=== PATIENT | female | born 2000 | race Hispanic/Latino ===

== ENCOUNTER 2020-03-27 19:05 | Emergency (ER) | payer OTHER, SELFPAY ==
[2020-03-27] MEDS ORDERED: LIDOCAINE 1% MPF 5 ML VIAL ONE (20:31)
--- NOTE | 2020-03-27 20:37 | EDPHYS ---
Physician Documentation [facility] Name: Linda Castillo Age: 19 yrs Sex: Female : 2000 Arrival Date: 03/27/2020 Time: 19:09 Bed 14 Private MD: ED Physician Jorge L Mckay HPI: 03/27 20:14 This 19 yrs old Female presents to ER via Ambulatory with complaints of jr8 Laceration To Hand. 20:14 The patient has a laceration related to: cooking, occurred at home. Onset: The jr8 symptoms/episode began/occurred acutely, today. Associated signs and symptoms: The patient has no apparent associated signs or symptoms. The patient has not experienced similar symptoms in the past. The patient has not recently seen a physician. 20:14 accidental laceration to right hand with knife while cleaning from cooking . 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 - Social history:: Smoking status: Patient denies any tobacco usage or history of. Patient/guardian denies using alcohol, street drugs, tobacco products. ROS: 20:14 Eyes: Negative for injury, pain, redness, and discharge, ENT: Negative for injury, jr8 pain, and discharge, Neck: Negative for injury, pain, and swelling, Cardiovascular: Negative for chest pain, palpitations, and edema, Respiratory: Negative for shortness of breath, cough, wheezing, and pleuritic chest pain, Abdomen/GI: Negative for abdominal pain, nausea, vomiting, diarrhea, and constipation, Back: Negative for injury and pain, MS/Extremity: Negative for injury and deformity, Neuro: Negative for headache, weakness, numbness, tingling, and seizure. 20:14 Skin: Positive for laceration(s), of the right hand. Exam: 20:14 Constitutional: This is a well developed, well nourished patient who is awake, alert, jr8 and in no acute distress. Cardiovascular: Regular rate and rhythm with a normal S1 and S2. No gallops, murmurs, or rubs. Normal PMI, no JVD. No pulse deficits. Respiratory: Lungs have equal breath sounds bilaterally, clear to auscultation and percussion. No rales, rhonchi or wheezes noted. No increased work of breathing, no retractions or nasal flaring. MS/ Extremity: Pulses equal, no cyanosis. Neurovascular intact. Full, normal range of motion. Neuro: Awake and alert, GCS 15, oriented to person, place, time, and situation. Cranial nerves II-XII grossly intact. Motor strength 5/5 in all extremities. Sensory grossly intact. Cerebellar exam normal. Normal gait. 20:14 Skin: injury, laceration(s), the wound is approximately 3 cm(s), with a depth of .3 cm(s), of the right hand. Vital Signs: 19:16 BP 126 / 83; Pulse 85; Resp 17; Temp 98.6; Pulse Ox 98% ; Pain 4/10; ll1 21:04 BP 120 / 79; Pulse 75; Resp 16; Temp 98.5(O); Pulse Ox 100% ; Pain 3/10; ks7 Laceration: 20:34 Wound Repair of 3cm ( 1.2in ) subcutaneous laceration to right hand. Irregularly jr8 shaped.. Minimal bleeding noted.. Distal neuro/vascular/tendon intact. Anesthesia: Local anesthetic administered with 2 mls of 1% lidocaine. Wound prep: Moderate cleansing with betadine, Wound irrigation with saline, Wound explored extensively. Skin closed with 5 4-0 Prolene using interrupted sutures and sterile technique. Patient tolerated well. MDM: 19:39 Patient medically screened. jr8 20:34 Data reviewed: vital signs, nurses notes, and as a result, I will discharge patient. jr8 Data interpreted: Pulse oximetry: on room air is 98 %. Interpretation: normal. Counseling: I had a detailed discussion with the patient and/or guardian regarding: the historical points, exam findings, and any diagnostic results supporting the discharge/admit diagnosis, the need for outpatient follow up, a family practitioner, to return to the emergency department if symptoms worsen or persist or if there are any questions or concerns that arise at home. 03/27 19:49 Order name: Prolene, Sutures; Complete Time: 20:22 jr8 03/27 19:49 Order name: Dressing - Wound; Complete Time: 20:58 jr8 03/27 19:49 Order name: Gloves, Sterile; Complete Time: 20:22 jr8 03/27 19:49 Order name: Setup Suture Tray; Complete Time: :8 Administered Medications: 20:57 Drug: Lidocaine (1 %) 5 mg {Note: medication administered by Jacob SALMERON.} Route: sg Infiltration; Disposition: 03/28 00:38 Co-signature as Attending Physician, Jorge L Mckay MD. [email or web address] Disposition: 03/27/20 20:36 Discharged to Home. Impression: Laceration without foreign body of right hand. - Condition is Stable. - Discharge Instructions: Laceration Care, Adult. - Medication Reconciliation Form, Thank You Letter, Antibiotic Education, Prescription Opioid Use form. - Follow up: Private Physician; When: 7 - 10 days; Reason: Wound Recheck, Recheck today's complaints, Continuance of care, Staple/Suture removal, Re-evaluation by your physician. - Problem is new. - Symptoms have improved. Signatures: Bigg Blackwell RN RN sg Lam, MD DANIEL Coats pkJacob Paez PA PA jr8 Mikel Saldana RN RN ll1 Eleni Burton RN RN ks7 Corrections: (The following items were deleted from the chart) 03/27 21:06 20:36 03/27/2020 20:36 Discharged to Home. Impression: Laceration without foreign body ks7 of right hand. Condition is Stable. Forms are Medication Reconciliation Form, Thank You Letter, Antibiotic Education, Prescription Opioid Use. Follow up: Private Physician; When: 7 - 10 days; Reason: Wound Recheck, Recheck today's complaints, Continuance of care, Staple/Suture removal, Re-evaluation by your physician. Problem is new. Symptoms have improved. jr8
--- NOTE | 2020-03-27 20:37 | ER ---
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 Coronavirus screen: Patient denies a cough. Patient denies shortness of breath or difficulty breathing. Patient denies measured and/or subjective temperature greater than 100.4F prior to today's visit. Patient denies travel on a cruise ship or to a country the [facility] currently lists as an affected area. Patient denies contact with known and/or suspected case of COVID-19. Proceed with normal triage. Ebola Screen: Patient denies travel to an Ebola-affected area in the 21 days before illness onset. Complicating Factors: There are no complicating factors for this patient. Initial Sepsis Screen: Does the patient meet any 2 criteria? No. Patient's initial sepsis screen is negative. Risk Assessment: Do you want to hurt yourself or someone else? Patient reports no desire to harm self or others. Onset of symptoms was March 27, 2020. 19:16 Method Of Arrival: Ambulatory [facility] 19:16 Acuity: IMANI 4 ll1 21:06 Initial Sepsis Screen: Does the patient have a suspected source of infection? No. ks7 Patient's initial sepsis screen is negative. Triage Assessment: 19:37 General: Appears in no apparent distress. well groomed, Behavior is calm, cooperative. ks7 Pain: Complains of pain in right hand Pain currently is 4 out of 10 on a pain scale. Quality of pain is described as throbbing. Injury Description: Laceration sustained to right hand is clean, 2.6 to 7.5 cm long, not bleeding. 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 - Social history:: Smoking status: Patient denies any tobacco usage or history of. Patient/guardian denies using alcohol, street drugs, tobacco products. Screenin:39 Abuse screen: Denies threats or abuse. Nutritional screening: No deficits noted. ks7 Tuberculosis screening: No symptoms or risk factors identified. Fall Risk None identified. Assessment: 19:39 Musculoskeletal: Circulation, motion, and sensation intact. Range of motion: painful to ks7 move fingers. Injury Description: Laceration sustained to right hand is clean, 2.6 to 7.5 cm long, not bleeding, was sustained 1-2 hours ago. is bleeding a small amount. 21:04 Reassessment: bleeding controlled after sutures. pain with movement to R hand. ks7 Vital Signs: 19:16 BP 126 / 83; Pulse 85; Resp 17; Temp 98.6; Pulse Ox 98% ; Pain 4/10; ll1 21:04 BP 120 / 79; Pulse 75; Resp 16; Temp 98.5(O); Pulse Ox 100% ; Pain 3/10; ks7 ED Course: 19:09 Patient arrived in ED. mr 19:18 Triage completed. ll1 19:18 Arm band placed on Patient placed. ll1 19:28 Eleni Burton RN is Primary Nurse. ks7 19:[address] [facility]. jr8 19:32 Jorge L Mckay MD is Attending Physician. jr8 19:39 Patient has correct armband on for positive identification. Bed in low position. Call ks7 light in reach. Side rails up X2. 19:39 No provider procedures requiring assistance completed. Patient did not have IV access ks7 during this emergency room visit. 21:04 No apparent distress. Resting quietly. ks7 Administered Medications: 20:57 Drug: Lidocaine (1 %) 5 mg {Note: medication administered by Jacob SALMERON.} Route: sg Infiltration; Outcome: 20:36 Discharge ordered by . jr8 21:04 Discharged to home ambulatory. ks7 21:04 Condition: stable 21:04 Discharge instructions given to patient, Instructed on discharge instructions, follow up and referral plans. Demonstrated understanding of instructions, follow-up care. 21:06 Patient left the ED. ks7 Signatures: Bigg Blackwell RN RN sg JinBarbara mr Jacob St PA PA jrShawn Tabaresy, RN RN ll1 Eleni Burton, RN RN ks7
[2020-03-27 21:34] VITALS: BP 120/79; TEMP 98.5; O2SAT 100
== END 2020-03-27 21:06 | disposition home or self-care (01) ==
LOC: ER 19:05
PROC: 0JQJ0ZZ Repair Right Hand Subcutaneous Tissue and Fascia, Open Approach (ICD-10-PCS; principal; 2020-03-27)
DX: S61.411A Laceration without foreign body of right hand, initial encounter (principal); W26.0XXA Contact with knife, initial encounter; Y93.G3 Activity, cooking and baking; Y92.000 Kitchen of unspecified non-institutional (private) residence as the place of occurrence of the external cause
CPT/HCPCS: 99283

== ENCOUNTER 2021-06-15 15:08 | Emergency (ER) | payer SELFPAY ==
[2021-06-15 16:26] LABS: Absolute Lymphocytes (CBC) 2.2 K/uL (0.7-4.9); Basophils % 0.7 % (0-1.3); Hematocrit 41.6 % (36.0-45.0); Lymphocytes % 22.9 % (15.3-44.8); MPV 8.1 fL (7.6-11.3); RBC Red Blood Cell Count 5.02 M/uL (3.86-4.86)
[2021-06-15 16:28] LABS: Urine Blood 3+ (Negative); Urine Glucose Negative (Negative); Urine Protein Negative (Negative); Urine Specific Gravity >=1.030 (1.005-1.030)
[2021-06-15 16:55] LABS: BUN Blood Urea Nitrogen 9 mg/dL (7-18); Bicarbonate 26 mmol/L (21-32); Glucose Level 93 mg/dL (74-106); HCG, Quantitative 17802 mIU/mL (1-3); Potassium 3.6 mmol/L (3.5-5.1); Sodium Level 139 mmol/L (136-145)
[2021-06-15 17:04] LABS: Urine Specific Gravity/Preg >1.030 (1.005-1.030)
--- NOTE | 2021-06-15 18:02 | EDPHYS ---
Physician Documentation [facility] Name: Linda Castillo Age: 21 yrs Sex: Female : 2000 Arrival Date: 06/15/2021 Time: 15:10 Bed 10 Private MD: ED Physician Rubens Davies HPI: 06/15 16:09 This 21 yrs old Female presents to ER via Ambulatory with complaints of kb Vaginal Bleeding, + Preg <12wks. 16:09 The patient presents to the emergency department with vaginal bleeding, that is light, kb described as spotting. The estimated gestational age is 6 weeks. course: care: none, Leakage of Fluid: none appreciated, Ultrasound: the patient has not had an ultrasound, Risk/complications: no obvious risks or complications are appreciated. Previous pregnancies: the patient has never been . Associated signs and symptoms: Pertinent positives: vaginal bleeding, Pertinent negatives: abdominal pain, fever. The patient has not experienced similar symptoms in the past. The patient has not recently seen a physician. 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 - Social history:: Smoking status: Patient denies any tobacco usage or history of. ROS: 16:07 Constitutional: Negative for fever, chills, and weight loss. kb 16:07 : Positive for vaginal bleeding. 16:07 All other systems are negative. Exam: 16:08 Constitutional: This is a well developed, well nourished patient who is awake, alert, kb and in no acute distress. Head/Face: Normocephalic, atraumatic. ENT: Moist Mucous membranes Respiratory: Respirations even and unlabored. No increased work of breathing, no retractions or nasal flaring. Abdomen/GI: Soft, non-tender. No distention Skin: Warm, dry with normal turgor. Normal color. MS/ Extremity: Pulses equal, no cyanosis. Neurovascular intact. Full, normal range of motion. Neuro: Awake and alert, GCS 15, oriented to person, place, time, and situation. Moves all extremities. Normal gait. Psych: Awake, alert, with orientation to person, place and time. Behavior, mood, and affect are within normal limits. Vital Signs: 15:17 BP 129 / 75; Pulse 80; Resp 16; Temp 97.3; Pulse Ox 100% ; Weight 92.53 kg; Height 5 sv ft. 3 in. (160.02 cm); Pain 0/10; 18:06 BP 116 / 74; Pulse 81; Resp 17; Pulse Ox 100% on R/A; oh 15:17 Body Mass Index 36.14 (92.53 kg, 160.02 cm) sv MDM: 15:33 Patient medically screened. kb 16:04 Data reviewed: vital signs, nurses notes. Data interpreted: Pulse oximetry: on room air kb is 100 %. Interpretation: normal. 18:00 Counseling: I had a detailed discussion with the patient and/or guardian regarding: the kb historical points, exam findings, and any diagnostic results supporting the discharge/admit diagnosis, lab results, radiology results, the need for outpatient follow up, an OB/Gyne specialist, to return to the emergency department if symptoms worsen or persist or if there are any questions or concerns that arise at home. 06/15 15:33 Order name: Abo/rh Typing; Complete Time: 17:17 kb 06/15 15:33 Order name: Basic Metabolic Panel; Complete Time: 16:58 kb 06/15 15:33 Order name: CBC with Diff; Complete Time: 16:34 kb 06/15 15:33 Order name: Quantitative Hcg; Complete Time: 16:58 kb 06/15 16:28 Order name: Urine --Ancillary (enter results) bd 06/15 16:28 Order name: Urine Dipstick-Ancillary; Complete Time: 16:34 EDMS 06/15 15:33 Order name: IV Saline Lock; Complete Time: 16:13 kb 06/15 15:33 Order name: Labs collected and sent; Complete Time: 16:14 kb 06/15 15:33 Order name: NPO; Complete Time: 16:14 kb 06/15 15:33 Order name: Urine Dipstick-Ancillary (obtain specimen); Complete Time: 16:39 kb 06/15 15:33 Order name: Urine Test (obtain specimen); Complete Time: 16:39 kb 06/15 16:35 Order name: US Transvaginal Ob kb Administered Medications: No medications were administered Point of Care Testing: Urine : 16:39 hCG Reading: Positive; oh Disposition Summary: 06/15/21 18:01 Discharge Ordered Location: Home kb Condition: Stable kb Diagnosis - Threatened kb Followup: kb - With: Emergency Department - When: As needed - Reason: Worsening of condition Followup: kb - With: Private Physician - When: 2 - 3 days - Reason: Recheck today's complaints, Continuance of care, Re-evaluation by your physician Discharge Instructions: - Discharge Summary Sheet kb - Threatened Miscarriage, [id number] kb - Vaginal Bleeding During , First Trimester, [id number] kb Forms: - Medication Reconciliation Form kb - Thank You Letter kb - Antibiotic Education kb - Prescription Opioid Use kb Addendum: 06/18/2021 08:37 Co-signature as Attending Physician, Rubens Davies MD I agree with the assessment and r n plan of care. Attestation: The patient's history, exam findings, diagnostics, and a summary of any interventions or procedures was reviewed in detail with Nena ORR. Signatures: Dispatcher [employer] Nena Pizarro FNP-C FNP-Ckb Verde, Stephanie, RN RN Rubens White MD MD rn
--- NOTE | 2021-06-15 18:02 | ER ---
Nurse's Notes [facility] Name: Linda Castillo Age: 21 yrs Sex: Female : 2000 Arrival Date: 06/15/2021 Time: 15:10 Bed 10 Private MD: Diagnosis: Threatened Presentation: 06/15 15:16 Chief complaint: Patient states: vaginal spotting x 2 weeks but today started having sv more bleeding. Pt is 6 weeks 6 days . Risk Assessment: Do you want to hurt yourself or someone else? Patient reports no desire to harm self or others. Onset of symptoms was May 2021. 15:16 Method Of Arrival: Ambulatory sv 15:16 Acuity: IMANI 3 sv 15:17 Coronavirus screen: Vaccine status: Patient reports being unvaccinated. Client denies sv travel out of the [place] in the last 14 days. Ebola Screen: No symptoms or risks identified at this time. Initial Sepsis Screen: Does the patient meet any 2 criteria? No. Patient's initial sepsis screen is negative. Does the patient have a suspected source of infection? No. Patient's initial sepsis screen is negative. Triage Assessment: 15:18 General: Appears in no apparent distress. comfortable, Behavior is calm, cooperative, sv appropriate for age. Neuro: Level of Consciousness is awake, alert, obeys commands, Oriented to person, place, time, situation, Gait is steady. Respiratory: Respiratory effort is even, unlabored. : Reports vaginal bleeding that is spotty. 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 - Social history:: Smoking status: Patient denies any tobacco usage or history of. Screenin:19 Abuse screen: Denies threats or abuse. Nutritional screening: No deficits noted. oh Tuberculosis screening: No symptoms or risk factors identified. Fall Risk None identified. Assessment: 16:17 : Reports vaginal bleeding that is moderate flow, states she has been having mild oh bleeding for 2 weeks. however today she had a moderate amount of bleeding than usual. pt is 6 weeks . 17:47 Reassessment: pt off the floor to ultrasound. oh Vital Signs: 15:17 BP 129 / 75; Pulse 80; Resp 16; Temp 97.3; Pulse Ox 100% ; Weight 92.53 kg; Height 5 sv ft. 3 in. (160.02 cm); Pain 0/10; 18:06 BP 116 / 74; Pulse 81; Resp 17; Pulse Ox 100% on R/A; oh 15:17 Body Mass Index 36.14 (92.53 kg, 160.02 cm) sv ED Course: 15:10 Patient arrived in ED. as 15:16 Arm band placed on. sv 15:17 Triage completed. sv 15:33 Nena Pollack FNP-C is PHCP. kb 15:33 Rubens Davies MD is Attending Physician. kb 15:57 Pallavi Colmenares, RN is Primary Nurse. oh 16:19 Inserted saline lock: 20 gauge in right antecubital area, using aseptic technique. oh Blood collected. 16:39 Bed in low position. Call light in reach. oh 16:52 Urine --Ancillary (enter results) Sent. oh 17:56 US Transvaginal Ob In Process Unspecified. EDMS 18:09 IV discontinued, bleeding controlled, Pressure dressing applied. oh 18:10 No provider procedures requiring assistance completed. oh Administered Medications: No medications were administered Point of Care Testing: Urine : 16:39 hCG Reading: Positive; oh Outcome: 18:01 Discharge ordered by MD. kb 18:09 Discharged to home ambulatory. oh 18:09 Condition: stable 18:09 Discharge instructions given to patient. 18:10 Patient left the ED. oh Signatures: Dispatcher [employer] EDIL Nena Pollack FNP-C FNP-Ckb Verde, Stephanie RN RN Lexy Burnette as Pallavi Colmenares, RN RN oh Corrections: (The following items were deleted from the chart) 15:19 15:17 Pulse 80bpm; Resp 16bpm; Pulse Ox 100%; Temp 97.3F; 92.53 kg; Height 5 ft. 3 in.; sv BMI: 36.1; Pain 0/10; sv
--- NOTE | 2021-06-15 18:04 | RAD REPORT ---
EXAM DESCRIPTION: US - Transvaginal OB - 06/15/2021 5:56 pm CLINICAL HISTORY: VAGINAL BLEEDING, COMPARISON: No comparisons FINDINGS: Normal shaped intrauterine gestational sac seen in the fundal portion of the endometrial c avity. Uterus is normal size. pole is identified. [place]-rump length corresponds to 6 week 3 day age. Heart rate is 112 BPM. A 17 millimeter right ovarian cyst is present. No worrisome adnexal finding. Uterine size is normal. Patient appears to have a 2.6 centimeter anterior wall fibroid. Internal os appears closed. There does appear to be a small amount of fluid or old blood in the cervi jayla canal. IMPRESSION: Single 6 week 3 day IUP with heart rate of 112 BPM. Questionable small amount of fluid or blood in the cervical canal with the internal os appearing clos ed.
[2021-06-15 18:26] VITALS: TEMP 97.3; O2SAT 100
[2021-06-15 18:27] VITALS: BP 116/74
== END 2021-06-15 18:10 | disposition home or self-care (01) ==
LOC: ER 15:08
DX: O20.0 Threatened abortion (principal); Z3A.01 Less than 8 weeks gestation of pregnancy
CPT/HCPCS: 36415; 76817; 80048; 81003; 81025; 84702; 85025; 86900; 86901; 99284

== ENCOUNTER 2021-09-08 21:56 | Emergency (ER) | payer OTHER ==
--- OUTSIDE RECORDS SUMMARY | 2021-09-08 22:00 | XMS REPORT | Continuity of Care Document ---
:2000 Author Organization [facility] t Address [address] [place] [address] Care Team Providers Name Role Phone Pcp, Does Not Have A Primary Care Physician Doctor Unassigned, Name Attending Clinician Unavailable Trimester, Res-1st Attending Clinician Unavailable Jose Roberto SANCHEZ Attending Clinician JOSE ROBERTO Attending Clinician Unavailable CARISAEV_John Attending Clinician Unavailable Darnell Sherman Attending Clinician [phone] BENJI Admitting Clinician Unavailable Payers Payer Name Policy Type Policy Number Effective Date Expiration Date Amarilis mcclain MEDICAID-[place] - WOMEN'S [id number] HEALTH PROGRAM (MEDICAID) Problems Condition Condition Condition Status Onset Resolution Last Treating Co mments Source Name Details Category Date Date Treatment Clinician Date SAB SAB Disease Active 2020-09 Univers (spontaneo (spontaneo 0-30 it y of us us 00:00: [place] ) ) 00 Medi jayla Branch Missed Missed Disease Active 2020-09 Univers 0-28 ity of 00:00: [place] 00 Medical Branch Obesity Obesity Disease Active 2020-09 Univers affecting affecting 0-08 [place] ante[place] antepartum 00 Al dical Branch Supervisio Supervisio Disease Active 2020-09 U nivers n of high n of high 0-08 ity of risk risk 00:00: [place] 00 Medi jayla in first in first Branch trimester trimester Vaginal Vaginal Disease Active 2020-09 Univers bleeding bleeding 0-08 ity of affecting affecting 00:00: [place] early early 00 Medical Bran ch Allergies, Adverse Reactions, Alerts Allergy Allergy Status Severity Reaction(s) Onset Inactive Treating Comm ents Source Name Type Date Date Clinician NO KNOWN Drug Active Univers ALLERGIE Class ity of S [facility] [place] [place] Social History Social Habit Start Date Stop Date Quantity Comments Source ASSERTION 2021-05-11 [facility] 00:00:[address] [facility] [place] [place] Exposure to Not sure University of SARS-CoV-2 (event) [facility] [place] History SDOH University o f Alcohol Frequency [facility] edical Branch History SDOH University o f Alcohol Std Drinks [facility] [place] History SDDC University o f Alcohol Binge [facility] al [place] Alcohol intake 2021-07-08 2021-07-08 Ex-drinker [facility] 00:00:00 00:00:00 (finding) [facility] [place] Alcohol Comment 2021-06-18 2021-06-18 stopped Universit y of 00:00:00 00:00:00 06/11/[address] [facility] [place] History of tobacco 2018-02-16 2021-06-11 Cigarette Smoker University of use 00:00:00 00:00:[address] [facility] Tobacco use and 2021-03-05 2021-03-05 Never used Universit y of exposure 00:00:00 00:00:[address] [facility] [place] Cigarettes smoked 2021-03-05 2021-03-05 Univers ity of current (pack per 00:00:00 00:00:00 [place] [facility] ) - Reported Branch Cigarette 2021-03-05 2021-03-05 University of pack-years 00:00:00 00:00:[address] [facility] [place] Sex Assigned At 2000 2000 Universit y of 00:00:00 00:00:[address] [facility] [place] Smoking Status Start Date Stop Date Source Former smoker 2021-03-05 00:00:00 2021-03-05 00:00:[address] [facility] [place] Medications Ordered Filled Start Stop Current Ordering Indication Dosage Frequency Signature Comments Components Source Medication Medication Date Date Medication? Clinician (SIG) Name Name No known 2020-09 No Univers medications 0-29 ity of 23:43: [address] No known 2020-09 No Univers medications 0-29 ity of 23:43: [place] 44 Medical Branch cephALEXin 2020-09- No [id number] 500mg Take 1 Univers (KEFLEX) 0-06 08- capsule by ity of 500 mg 00:00: 04:59 mouth 2 [place] capsule 00 :00 (two) Medical [facility] daily for 7 days. Immunizations Ordered Filled Immunization Date Status Comments [facility] e Immunization Name Name Influenza Virus 2021-06-18 Completed Universit y of Vaccine Quad IM, 00:00:00 [place] Me dical Preserv and ABX Branch Free 6 MO-64 YRS Influenza Virus 2021-06-18 Completed Universit y of Vaccine Quad IM, 00:00:00 [place] Me dical Preserv and ABX Branch Free 6 MO-64 YRS Influenza Virus 2021-06-18 Completed Universit y of Vaccine Quad IM, 00:00:00 [place] Me dical Preserv and ABX Branch Free 6 MO-64 YRS Influenza Virus 2020-07-21 Completed Universit y of Vaccine Quad .5 mL 00:00:00 [place] Medical IM 6+ MO Branch Influenza Virus 2020-07-21 Completed Universit y of Vaccine Quad .5 mL 00:00:00 [place] [facility] IM 6+ MO Branch Influenza Virus 2020-07-21 Completed Universit y of Vaccine Quad .5 mL 00:00:00 [facility] IM 6+ MO Branch HPV 2011-06-27 Completed University of 00:00:[address] [facility] Influenza Virus 2011-06-27 Completed Universit y of Vaccine - Whole 00:00:00 [facility] HPV 2011-06-27 Completed University of 00:00:[address] [facility] [place] Influenza Virus 2011-06-27 Completed Universit y of Vaccine - Whole 00:00:00 [facility] HPV 2011-06-27 Completed University of 00:00:[address] [facility] [place] Influenza Virus 2011-06-27 Completed Universit y of Vaccine - Whole 00:00:00 [facility] Vital Signs Vital Name Observation Time Observation Value Comments Source Systolic blood 2021-07-08 15:31:00 140 mm[Hg] Univer sity of pressure [facility] [place] Diastolic blood 2021-07-08 15:31:00 89 mm[Hg] Unive rsity of pressure [facility] [place] Heart rate 2021-07-08 15:30:00 91 /min Universi ty of [facility] [place] Body temperature 2021-07-08 15:30:00 36.83 Susan [facility] Respiratory rate 2021-07-08 15:30:00 18 /min [facility] Body weight 2021-07-08 15:30:00 91.899 [facility] BMI 2021-07-08 15:30:00 35.89 kg/m2 [facility] Procedures Procedure Date / Time Performed Performing Clinician Sourc e EXTERNAL PROVIDER 2021-08-18 06:01:00 Doctor Unassigned, No Univ [facility] [place] RECORDS Name Medical Branch EXTERNAL PROVIDER 2021-07-16 05:01:00 Doctor Unassigned, No [facility] [place] [facility] Name Medical Branch <14 WEEKS US 2021-07-08 16:58:27 Lucia [facility] [place] LIMITED [facility] Encounters Start End Encounter Admission Attending Care Care Encounter Source Date/Time Date/Time Type Type Clinicians Facility Department ID 2021-08-18 2021-08-18 Orders Doctor WHITMORE [id number] Univers 00:00:00 00:00:00 Only Unassigned, NA [id number] ity of [facility] [id number] Rex as [id number] [facility] 009 Branch 2021-07-27 2021-07-27 Outpatient R [facility] [id number] Univers 09:45:00 09:45:[address] [facility] [place] 2021-07-16 2021-07-16 Orders Doctor WHITMORE [id number] Univers 00:00:00 00:00:00 Only Unassigned, NA [id number] ity of [facility] [id number] Rex as [id number] [facility] 009 Branch 2021-07-08 2021-07-08 Routine Trimester, [facility] Res-1st UNIVERSIT [id number] Univers 10:02:09 11:41:10 Cid, Hosea Y HEALTH [id number] ity of Visit CLINICS [id number] [id number] [facility] 113 Branch 2021-07-08 2021-07-08 Outpatient Tian CID [facility] [id number] Univers 10:00:00 11:41:10 HOSEA ozuna [facility] 2021-06-18 2021-06-18 Outpatient KOVACEV_T [facility] [place] 04:25:00 04:25:00 [id number] [facility] 2021-02-27 2021-02-27 Outpatient KOVACEV_T [facility] [place] 03:20:00 03:20:00 0619 [facility] 2021-01-28 2021-01-28 Outpatient KOVACEV_T [facility] [place] 06:24:00 06:24:00 0520 [facility] 2021-01-24 2021-01-24 Outpatient KOVACEV_T [facility] [place] 01:05:00 01:05:00 0516 [facility] 2021-01-21 2021-01-21 Outpatient KOVACEV_T [facility] [place] 10:23:00 10:23:00 0513 [facility] 2021-01-21 2021-01-[address] [facility] [id number] 00:00:00 00:00:00 Dale [id number] Patrick [id number] 2020-12-20 2020-12-20 Outpatient KOVACEV_T [facility] [place] 01:03:00 01:03:00 0411 [facility] 2020-12-07 2020-12-07 Outpatient KOVACEV_T [facility] [place] 05:24:00 05:24:00 [id number] [facility] 2020-12-07 2020-12-07 Outpatient KOVACEV_T [facility] [place] 05:21:00 05:21:00 0329 [facility] 2020-12-04 2020-12-04 Outpatient KOVACEV_T [facility] [place] 04:34:00 04:34:00 0326 [facility] 2020-12-01 2020-12-[address] [facility] [id number] 00:00:00 00:00:00 Dale [id number] Patrick [id number] 2020-11-24 2020-11-24 Outpatient KOVACEV_T [facility] [place] 10:25:00 10:25:00 0316 [facility] 2020-11-24 2020-11-24 Outpatient KOVACEV_T [facility] [place] 09:46:00 09:46:00 0316 [facility] 2020-11-24 2020-11-[address] [facility] [id number] 00:00:00 00:00:00 Dale [id number] [place] [id number] 2020-11-19 2020-11-19 Outpatient SARAHVACEV_T [facility] [place] 05:44:00 05:44:00 0311 [facility] 2020-11-12 2020-11-12 Outpatient KOVACEV_T [facility] [place] 09:36:00 09:36:00 0304 [facility] Results This patient has no known results.
[2021-09-09] MEDS ORDERED: LIDOCAINE 1% MPF 5 ML VIAL ONE (00:42)
--- NOTE | 2021-09-09 01:06 | EDPHYS ---
Physician Documentation [facility] Name: Linda Castillo Age: 21 yrs Sex: Female : 2000 Arrival Date: 09/08/2021 Time: 22:02 Bed 18 Private MD: ED Physician Jorge L Mckay HPI: 09/09 00:15 This 21 yrs old Female presents to ER via Ambulatory with complaints of pkl Abscess. 00:15 The patient presents with an abscess of the left axilla. Description: fluctuant. Onset: pkl The symptoms/episode began/occurred 2 week(s) ago. The patient has experienced a previous episode, approximately 1 years ago. 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 - Social history:: Smoking status: unknown. ROS: 09/09 00:15 Eyes: Negative for injury, pain, redness, and discharge, ENT: Negative for injury, pkl pain, and discharge, Neck: Negative for injury, pain, and swelling, Cardiovascular: Negative for chest pain, palpitations, and edema, Respiratory: Negative for shortness of breath, cough, wheezing, and pleuritic chest pain, Abdomen/GI: Negative for abdominal pain, nausea, vomiting, diarrhea, and constipation, Back: Negative for injury and pain, : Negative for injury, bleeding, discharge, and swelling. Skin: Positive for abscess, swelling, of the left axilla. Exam: 00:15 Head/Face: Normocephalic, atraumatic. Eyes: Pupils equal round and reactive to light, pkl extra-ocular motions intact. Lids and lashes normal. Conjunctiva and sclera are non-icteric and not injected. Cornea within normal limits. Periorbital areas with no swelling, redness, or edema. ENT: Nares patent. No nasal discharge, no septal abnormalities noted. Tympanic membranes are normal and external auditory canals are clear. Oropharynx with no redness, swelling, or masses, exudates, or evidence of obstruction, uvula midline. Mucous membranes moist. Neck: Trachea midline, no thyromegaly or masses palpated, and no cervical lymphadenopathy. Supple, full range of motion without nuchal rigidity, or vertebral point tenderness. No Meningismus. 00:15 Chest/axilla: Palpation: tenderness, that is moderate, of the left axilla. 00:15 Cardiovascular: Rate: normal, Rhythm: regular. 00:15 Respiratory: Exam negative for acute changes. 00:15 Abdomen/GI: Exam negative for 00:15 Back: Exam negative for acute changes. 00:15 : Exam negative for acute changes. 00:15 Skin: abscess, that is moderate sized, of the left axilla, with fluctuance. 00:15 Neuro: Exam negative for acute changes. Vital Signs: 09/08 22:25 BP 145 / 84; Pulse 99; Resp 18; Temp 97.1; Pulse Ox 99% on R/A; Weight 99.79 kg; Height sm5 5 ft. 3 in. (160.02 cm); 22:25 Body Mass Index 38.97 (99.79 kg, 160.02 cm) [facility] Procedures: 09/09 01:02 I \T\ D: Incision and drainage was performed for an abscess of the left axilla Prepped pkl with Betadine, Anesthetized with 3 ml's 1% Lidocaine. Incised with #11 blade. Drained moderate amount purulent fluid. Packed with iodoform gauze, Dressing: sterile 4x4 gauze, the patient tolerated the procedure well. MDM: 09/08 22:57 Patient medically screened. pkl 09/09 01:02 Data reviewed: vital signs, nurses notes. ED course: Advised to follow up with Surgeon pkl ( Dr. Hester ) in 2 to 3 days. Patient understood instructions. 09/09 01:07 Order name: Wound Culture pkl 09/09 01:08 Order name: Wound Culture EDMS 09/08 23:04 Order name: US Extrmty Nonvasular Limited kb Administered Medications: 01:08 Drug: Bactrim (trimethoprim-sulfamethoxazole) (160 mg-800 mg (DS) 1 tablet Route: PO; mr2 01:09 Drug: UltRAM (traMADol) 50 mg Route: PO; mr2 Disposition Summary: 09/09/21 01:05 Discharge Ordered Location: Home pkl Problem: new pkl Symptoms: have improved pkl Condition: Stable pkl Diagnosis - Abscess left axilla pkl Followup: pkl - With: Rodriguez Hester MD - When: 2 - 3 days - Reason: Re-evaluation by your physician Discharge Instructions: - Discharge Summary Sheet pkl Forms: - Medication Reconciliation Form pkl - Thank You Letter pkl - Antibiotic Education pkl - Prescription Opioid Use pkl Prescriptions: - Ultram 50 mg Oral Tablet - take 1 tablet by ORAL route every 8 hours As needed; 12 tablet; Refills: 0, pkl Product Selection Permitted - Bactrim DS 800-160 mg Oral Tablet - take 1 tablet by ORAL route every 12 hours for 7 days; 14 tablet; Refills: 0, pkl Product Selection Permitted Signatures: Dispatcher [employer] Jorge L Hester MD MD pkl Kimani Edward RN RN mr2 Alix Fragoso RN RN sm5
--- NOTE | 2021-09-09 01:06 | ER ---
Nurse's Notes [facility] Name: Linda Castillo Age: 21 yrs Sex: Female : 2000 Arrival Date: 09/08/2021 Time: 22:02 Bed 18 Private MD: Diagnosis: Abscess left axilla Presentation: 09/08 22:25 Chief complaint: Patient states: has a hx of L armpit abcess a year ago, now having sm5 another one with pain shooting down arm. Coronavirus screen: At this time, the client does not indicate any symptoms associated with coronavirus-19. Ebola Screen: No symptoms or risks identified at this time. Initial Sepsis Screen: Does the patient meet any 2 criteria? No. Patient's initial sepsis screen is negative. Does the patient have a suspected source of infection? No. Patient's initial sepsis screen is negative. Risk Assessment: Do you want to hurt yourself or someone else? Patient reports no desire to harm self or others. Onset of symptoms was September 06, 2021. 22:25 Method Of Arrival: Ambulatory [facility] 22:25 Acuity: IMANI 4 5 Triage Assessment: 22:30 General: Appears in no apparent distress. Behavior is cooperative. Pain: Complains of sm5 pain in L armpit. Neuro: No deficits noted. Level of Consciousness is awake, alert, Oriented to person, place, time, situation. Cardiovascular: No deficits noted. Respiratory: No deficits noted. Derm: Abscess located on L armpit. 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 - Social history:: Smoking status: unknown. Screenin/30 00:10 Abuse screen: Denies threats or abuse. Denies injuries from another. Nutritional mr2 screening: No deficits noted. Tuberculosis screening: No symptoms or risk factors identified. Fall Risk None identified. Vital Signs: 09/08 22:25 BP 145 / 84; Pulse 99; Resp 18; Temp 97.1; Pulse Ox 99% on R/A; Weight 99.79 kg; Height sm5 5 ft. 3 in. (160.02 cm); 22:25 Body Mass Index 38.97 (99.79 kg, 160.02 cm) [facility] ED Course: 22:02 Patient arrived in ED. ja2 22:27 Triage completed. [facility] 22:57 Jorge L Mckay MD is Attending Physician. pkl 23:30 Extrmty Nonvasular Limited In Process Unspecified. EDMS 09/09 00:10 Patient did not have IV access during this emergency room visit. mr2 00:10 Patient has correct armband on for positive identification. Bed in low position. Side mr2 rails up X2. 00:20 Kimani Edward, RN is Primary Nurse. mr2 00:50 Arm band placed on. mr2 01:04 Rodriguez Hester MD is Referral Physician. pkl 01:11 Assist provider with I \T\ D: of an abscess on left axilla Set up I\T\D tray. Performed by [facility] Jorge L Mckay MD Culture sent to lab. Wound packed. iodoform gauze, Dressing with 4X4s, tape Patient tolerated well. Administered Medications: 01:08 Drug: Bactrim (trimethoprim-sulfamethoxazole) (160 mg-800 mg (DS) 1 tablet Route: PO; mr2 01:09 Drug: UltRAM (traMADol) 50 mg Route: PO; mr2 Outcome: 01:05 Discharge ordered by . pkl 01:20 Discharged to home ambulatory. mr2 01:20 Condition: stable 01:20 Discharge instructions given to patient, Instructed on discharge instructions, follow up and referral plans. medication usage, Prescriptions given X 2. 01:42 Patient left the ED. mr2 Signatures: Dispatcher [employer] EDDC Jorge L Mckay MD MD pkEvie Shea [facility] Kimani Edward, RN RN mr2 Alix Fragoso RN RN 5
[2021-09-09] MEDS ORDERED: TRAMADOL HCL 50 MG TAB ONE (01:13)
[2021-09-09] MEDS ORDERED: SMZ./TMP. 800/160 MG TABLET ONE (01:13)
[2021-09-09 01:52] VITALS: BP 145/84; TEMP 97.1; O2SAT 99
--- NOTE | 2021-09-09 15:13 | RAD REPORT ---
EXAM DESCRIPTION: Extremity Nonvascular Limited CLINICAL HISTORY: 21 years Female evaluate abscess COMPARISON: None TECHNIQUE: Real-time sonography of the left axilla was performed. FINDINGS: 3.0 x 0.5 cm anechoic focus is identified contiguous with the skin surface. The finding wo uld be consistent with abscess. Echogenic debris noted. Doppler evaluation revealed minimal periphera l flow. IMPRESSION: Findings consistent with 3 cm fluid collection/abscess left axilla. Electronically signed by: Phuong Rowe MD 09/09/2021 12:09 AM NATIONAL BUSINESS DIRECTOR Due to temporary technical issues with the PACS/Fluency reporting system, reports are being signed by the in house radiologist without review as a courtesy to ensure prompt reporting. The interpreting r adiologist is fully responsible for the content of the report.
== END 2021-09-09 01:42 | disposition home or self-care (01) ==
LOC: ER 21:56
PROC: 0J960ZZ Drainage of Chest Subcutaneous Tissue and Fascia, Open Approach (ICD-10-PCS; principal; 2021-09-09)
DX: L02.412 Cutaneous abscess of left axilla (principal)
CPT/HCPCS: 76882; 87070; 87077; 87186; 87205; 99284

== ENCOUNTER 2022-10-31 12:40 | Emergency (ER) | payer SELFPAY ==
--- OUTSIDE RECORDS SUMMARY | 2022-10-31 12:58 | XMS REPORT | Continuity of Care Document ---
:2000 Author Organization [facility] t Address [address] [place] [address] Care Team Providers Name Role Phone PCP, PATIENT DOES NOT HAVE A Primary Care Physician Unavaila HOSEA Kelly Attending Clinician Unavailable NIC WRIGHT Attending Clinician Unavailable Nic Hoyos S Attending Clinician Bridgette Gomez Attending Clinician [phone] BRIDGETTE PADILLA Attending Clinician Unavailable PERRY QUIÑONEZ Attending Clinician Unavailable JAMISON LARA Attending Clinician Unavailable Jamison Berkowitz Attending Clinician Doctor Unassigned, [place] Attending Clinician Unavailable Perry Handy Attending Clinician OPAL CEE Attending Clinician Unavailable Opal Gillis Attending Clinician SHANE MAGUIRE Attending Clinician Unavailable Abbey Gould Attending Clinician Shane Maguire MD Attending Clinician [facility] Attending Clinician Unavailable Hosea Cid MD Attending Clinician Doug Blanchard MD Attending Clinician DOUG BLANCHARD Attending Clinician Unavailable WilliamFormer[facility] Attending Clinician Unavailable KOVACEV_T Attending Clinician Unavailable ALMA WHITMAN Attending Clinician Unavailable Alma Whitman MD Attending Clinician Felice Herbert MD Attending Clinician Marvin Bradford MD Attending Clinician Dale Sherman Attending Clinician [phone] Alejandro Amos DO Attending Clinician Nash Jaimes Attending Clinician [facility] Attending Clinician Unavailable Alton Barrientos Attending Clinician HOSEA CID Admitting Clinician Unavailable SHANE MAGUIRE Admitting Clinician Unavailable Sahne Maguire MD Admitting Clinician JAMISON LARA Admitting Clinician Unavailable ANNIE_T Admitting Clinician Unavailable Marvin Bradford MD Admitting Clinician Payers Payer Name Policy Type Policy Number Effective Date Expiration Date S johny [place] [id number] 2021 00:00:00 [facility]MERLY [facility] [id number] 2021 00:00:00 MEDICAID[place] - [id number] WOMEN'S HEALTH PROGRAM (MEDICAID) Problems Condition Condition Condition Status Onset Resolution Last Treating Co mments Source Name Details Category Date Date Treatment Clinician Date Supervisio Supervisio Disease Active U nivers n of n of 12-09 ity of high-risk [place] [facility] [place] History of History of Disease Active U nivers miscarriag miscarriag 12-09 it y of e e 00:: [place] [facility] Branch Obesity in Obesity in Disease Active U nivers 12-09 ity of 00:00: [address] Branch Ovarian Ovarian Disease Active Overview: Univ ers torsion torsion 12-09 Formattin ity o f 00:00: g of this note Medical might be Branch different from the original. Reports hist lolly in 2019 Elevated Elevated Disease Active Unive rs blood blood 3-31 ity of pressure pressure 00:00: [place] reading reading 00 Medical without without Branch diagnosis diagnosis of of hypertensi hypertensi on on Depression Depression Disease Active U nivers during during 3-14 [place] Vaginal Vaginal Disease Active 2020-09 Univers bleeding bleeding 0-08 ity of affecting affecting [place] early early 00 Medical Bran ch Allergies, Adverse Reactions, Alerts Allergy Allergy Status Severity Reaction(s) Onset Inactive Treating Comm ents Source Name Type Date Date Clinician NO KNOWN Drug Active Univers ALLERGIE Class ity of S [facility] Social History Social Habit Start Date Stop Date Quantity Comments Source ASSERTION 2021-11-18 University of 00:00:00 [facility] History SDOH University o f Alcohol Frequency [facility] Branch History SDOH University o f Alcohol Std Drinks [facility] History SDND University o f Alcohol Binge [facility] Branch Exposure to 2022-02-04 2022-02-14 Not sure University of SARS-CoV-2 (event) 00:00:00 09:14:00 [facility] Alcohol intake 2021-12-10 2021-12-10 Ex-drinker University of 00:00:00 00:00:00 (finding) [facility] Tobacco use and 2021-12-09 2021-12-09 Never used Universit y of exposure 00:00:00 00:00:00 [facility] Cigarettes smoked 2021-12-09 2021-12-09 Univers ity of current (pack per 00:00:00 00:00:00 [facility] ) - Reported Branch Cigarette 2021-12-09 2021-12-09 University of pack-years 00:00:00 00:00:00 [facility] Alcohol Comment 2021-11-22 2021-11-22 social Universit y of 00:00:00 00:00:00 [facility] History of tobacco 2018-02-16 2021-06-11 Cigarette Smoker University of use 00:00:00 00:00:00 [facility] Sex Assigned At 2000 2000 Universit y of 00:00:00 00:00:00 [facility] Smoking Status Start Date Stop Date Source Light Tobacco Smoker [facility] Former smoker 2021-12-09 00:00:00 2021-12-09 00:00:00 [facility] Medical Branch Medications Ordered Filled Start Stop Current Ordering Indication Dosage Frequency Signature Comments Components Source Medication Medication Date Date Medication? Clinician (SIG) Name Name ondansetron Yes [id number] 4mg Take 1 Univers 4 mg 6-06 tablet by ity of disintegrat 00:00: mouth [place] ing tablet 00 every 8 Medica l (eight) Branch hours as needed for Nausea and Vomiting (N/V). valACYclovi 2021- No [id number] 1g Take 1 Univers r 1 gram 6-06 06-14 tablet by ity o f tablet 00:00: 04:59 mouth 3 [place] 00 :00 (three) Medical times Branch daily for 7 days. Yes [id number] 1{tbl} Take 1 U nivers multivitami 3-31 tablet by ity of n ( 00:00: mouth [place] VITAMIN) 00 daily. Medical tablet Branch Yes [id number] 1{tbl} Take 1 U nivers multivitami 3-31 tablet by ity of n ( 00:00: mouth [place] VITAMIN) 00 daily. Medical tablet Branch Yes [id number] 1{tbl} Take 1 U nivers multivitami 3-31 tablet by ity of n ( 00:00: mouth [place] VITAMIN) 00 daily. Medical tablet Branch Yes [id number] 1{tbl} Take 1 U nivers multivitami 3-31 tablet by ity of n ( 00:00: mouth [place] VITAMIN) 00 daily. Medical tablet Branch ondansetron ondansetron No ondansetro [place] [facility] sucralfate sucralfate No sucralfate [place] [facility] Tylenol w Tylenol w No 1 Q6H Tylenol w [place] [facility] Codeine Codeine Commun i 300-60 mg 300-60 mg 300-60 mg ty tablet Take tablet Take tablet Hospita 1 tablet 1 tablet Take 1 l every 6 every 6 tablet Clinics hours by hours by every 6 oral route. oral route. hours by oral route. ondansetron ondansetron No ondansetro [place] [facility] sucralfate sucralfate No sucralfate [place] [facility] Tylenol w Tylenol w No 1 Q6H Tylenol w [place] [facility] Commun i 300-60 mg 300-60 mg 300-60 mg ty tablet Take tablet Take tablet Hospita 1 tablet 1 tablet Take 1 l every 6 every 6 tablet Clinics hours by hours by every 6 oral route. oral route. hours by oral route. ondansetron ondansetron No ondansetro [place] [facility] sucralfate sucralfate No sucralfate [place] [facility] Tylenol w Tylenol w No 1 Q6H Tylenol w [place] Code[facility] Codeine Codeine Commun i 300-60 mg 300-60 mg 300-60 mg ty tablet Take tablet Take tablet Hospita 1 tablet 1 tablet Take 1 l every 6 every 6 tablet Clinics hours by hours by every 6 oral route. oral route. hours by oral route. Immunizations Ordered Filled Immunization Date Status Comments [facility] e Immunization Name Name Influenza Virus 2021-12-09 Completed Universit y of Vaccine Quad IM, 00:00:00 [facility] [place] [facility] dical Preserv and ABX Branch Free 6 MO-64 YRS Influenza Virus 2021-12-09 Completed Universit y of Vaccine Quad IM, 00:00:00 [place] Me dical Preserv and ABX Branch Free 6 MO-64 YRS Influenza Virus 2021-12-09 Completed Universit y of Vaccine Quad IM, 00:00:00 [place] Me dical Preserv and ABX Branch Free 6 MO-64 YRS Influenza Virus 2021-12-09 Completed Universit y of Vaccine [facility] IM, 00:00:00 [place] Me dical Preserv and ABX Branch Free 6 MO-64 YRS Influenza Virus 2021-06-18 Completed Universit y of Vaccine Quad IM, 00:00:00 [place] Me dical Preserv and ABX Branch Free 6 MO-64 YRS Influenza Virus 2021-06-18 Completed Universit y of Vaccine Quad IM, 00:00:00 [place] Me dical Preserv and ABX Branch Free 6 MO-64 YRS Influenza Virus 2021-06-18 Completed Universit y of Vaccine Quad IM, 00:00:00 [facility] [place] [facility] dical Preserv and ABX Branch Free 6 MO-64 YRS Influenza Virus 2021-06-18 Completed Universit y of Vaccine Quad IM, 00:00:00 [facility] [place] [facility] dical Preserv and ABX Branch Free 6 MO-64 YRS Influenza Virus 2020-07-21 Completed Universit y of Vaccine Quad .5 mL 00:00:00 [place] [facility] 6+ MO Branch Influenza Virus 2020-07-21 Completed Universit y of Vaccine Quad .5 mL 00:00:00 [place] Medical IM 6+ MO Branch Influenza Virus 2020-07-21 Completed Universit y of Vaccine Quad .5 mL 00:00:00 [place] Medical IM 6+ MO Branch Influenza Virus 2020-07-21 Completed Universit y of Vaccine Quad .5 mL 00:00:00 [facility] 6+ MO Branch HPV 2011-06-27 Completed University of 00:00:00 [facility] Influenza Virus 2011-06-27 Completed Universit y of Vaccine - Whole 00:00:00 [facility] HPV 2011-06-27 Completed University of 00:00:00 [facility] Influenza Virus 2011-06-27 Completed Universit y of Vaccine - Whole 00:00:00 [facility] HPV 2011-06-27 Completed University of 00:00:00 [facility] Influenza Virus 2011-06-27 Completed Universit y of Vaccine - Whole 00:00:00 [facility] HPV 2011-06-27 Completed University of 00:00:00 [facility] Influenza Virus 2011-06-27 Completed Universit y of Vaccine - Whole 00:00:00 [facility] Vital Signs Vital Name Observation Time Observation Value Comments Source Systolic blood 2022-02-14 14:15:00 127 mm[Hg] Univer sity of pressure [facility] Diastolic blood 2022-02-14 14:15:00 76 mm[Hg] Unive rsity of pressure [facility] Heart rate 2022-02-14 14:15:00 83 /min [facility] Body temperature 2022-02-14 14:15:00 37.17 [facility] ersity [facility] Respiratory rate 2022-02-14 14:15:00 14 /min [facility] height 2022-02-14 14:15:00 160 cm [facility] Body weight 2022-02-14 14:15:00 96.163 kg Universi ty of [place] [facility] BMI 2022-02-14 14:15:00 37.55 kg/m2 Universi ty [facility] Oxygen saturation in 2022-02-14 14:15:00 99 /min University of Arterial blood by [facility] Pulse oximetry Branch Systolic blood 2021-12-11 04:28:00 130 mm[Hg] Univer sity of pressure [facility] Diastolic blood 2021-12-11 04:28:00 80 mm[Hg] Unive rsity of pressure [facility] Heart rate 2021-12-11 04:28:00 84 /min Universi ty of [facility] Body temperature 2021-12-11 04:28:00 37.11 Susan [facility] Res[facility] rate 2021-12-11 04:28:00 18 /min [facility] Body height 2021-12-11 04:28:00 160 cm Universi ty [facility] Body weight 2021-12-11 04:28:00 93.895 kg Universi ty [facility] BMI 2021-12-11 04:28:00 36.67 kg/m2 Universi ty [facility] Oxygen saturation in 2021-12-11 04:28:00 100 /min University of Arterial blood by [facility] Pulse oximetry Branch BP Diastolic 2021-01-21 00:00:00 65 mm[Hg] [facility] s Height 2021-01-21 00:00:00 63 [in_i] [facility] s BMI (Body Mass 2021-01-21 00:00:00 39.7 kg/m2 [facility] s BP Systolic 2021-01-21 00:00:00 129 mm[Hg] [facility] s Body Weight 2021-01-21 00:00:00 3584 [oz_av] [facility] s BP Diastolic 2020-11-24 00:00:00 70 mm[Hg] [facility] s Height 2020-11-24 00:00:00 63 [in_i] [facility] s BMI (Body Mass 2020-11-24 00:00:00 37.4 kg/m2 [facility] s BP Systolic 2020-11-24 00:00:00 112 mm[Hg] [facility] s Body Weight 2020-11-24 00:00:00 3376 [oz_av] [facility] s Procedures Procedure Date / Time Performing Clinician Source Performed CONSENT/REFUSAL FOR 2022-02-14 14:09:51 Doctor Unassigned, No Un [facility] DIAGNOSIS AND TREATMENT Name [facility] POCT TEST 2021-12-11 04:52:00 Jamison Lara [facility] BASIC METABOLIC PANEL 2021-12-11 04:49:00 Jamison Lara [facility] (NA, K, CL, CO2, [facility] GLUCOSE, BUN, CREATININE, CA) TOTAL BETA HCG ASSAY 2021-12-11 04:49:00 Jamison Lara [facility] CBC WITH DIFF 2021-12-11 04:49:00 [facility] 2021-12-11 04:49:00 Osbaldo [facility] [place], hepatobiliary scan, 2020-11-24 00:00:00 [facility] Clin[facility] Encounters Start End Encounter Admission Attending Care Care Encounter Source Date/Time Date/Time Type Type Clinicians Facility Department ID 2021-07-13 Emergency [facility] [id number] Univers 09:37:08 [facility] 2021-07-12 Emergency [facility] [id number] Univers 02:48:05 [facility] 2021-07-10 Emergency [facility] [id number] Univers 16:43:23 [facility] 2021-07-08 Outpatient R CID [facility] [facility] [id number] Univers 12:13:41 HOSEA [facility] 2022-02-14 2022-02-14 Emergency X KEVIN WRIGHT ERT [id number] Univers 09:18:00 10:32:00 NIC [facility] 2022-02-14 2022-02-14 Emergency KEVIN Wright [id number] Univers 09:18:00 10:32:00 Nic HARRELL [id number] i ty of [id number] [facility] [id number] [address] 2022-01-17 2022-01-17 [facility]phone [facility] [id number] Univers 00:00:00 00:00:00 Bridgette Roberto MUTUEL CLERK [id number] ity [facility] [id number] Rex as MATERNAL [id number] Med ical & CHILD [address] [place] [address] 2021-12-23 2021-12-23 Outpatient R JUDY, [facility] [id number] Univers 08:00:00 08:00:00 BRIDGETTE torres [facility] 2021-12-23 2021-12-23 Outpatient R JUDY, [facility] [id number] Univers 08:00:00 08:00:00 BRIDGETTE torres [facility] 2021-12-13 2021-12-13 Outpatient R QUIÑONEZ, [facility] [id number] Univers 13:15:00 13:15:00 PERRY ozuna o [facility] 2021-12-13 2021-12-13 Outpatient R JUDY, [facility] [id number] Univers 10:30:00 10:30:00 BRIDGETTE torres [facility] 2021-12-10 2021-12-11 Emergency X LARA, [facility] ERT [id number] Univers 23:34:00 01:12:00 JAMISON sulma [facility] 2021-12-10 2021-12-11 Emergency Lara, [facility] [id number] [id number] Univers 23:34:00 01:12:00 Jamison MORENOLEANDER [id number] i ty of [place] [id number] [facility] [id number] [address] 2021-12-10 2021-12-10 Telephone [facility] [id number] Univers 00:00:00 00:00:00 Bridgette C MUTUEL CLERK [id number] ity of REGIONAL 4.2.7.2.686 [place] as MATERNAL [id number] [facility] & [address] 2021-12-09 2021-12-09 Initial [facility] [id number] Univers 14:15:00 14:58:41 Bridgette C MUTUEL CLERK [id number] ity of Visit REGIONAL 4.2.7.2.686 Rex as MATERNAL [id number] [facility] & CHILD [address] [place] [address] 2021-12-09 2021-12-09 Outpatient R [facility] [id number] Univers 14:15:00 14:58:41 BRIDGETTE ity o f [facility] 2021-12-09 2021-12-09 Orders Doctor WHITMORE [id number] Univers 00:00:00 00:00:00 Only Unassigned, NA [id number] ity of [place] [facility] [id number] Rex as [id number] [address] 2021-11-22 2021-11-22 Office [facility] [id number] Univers 15:00:00 16:04:57 Visit [facility] R MUTUEL CLERK [id number] ity of [facility] [id number] Rex as MATERNAL [id number] [facility] & CHILD [address] [place] [address] 2021-11-22 2021-11-22 [facility] [id number] Univers 15:00:00 16:04:57 ROSNDA ity o f [facility] 2021-11-22 2021-11-22 Outpatient [facility] [id number] Univers 15:00:00 15:00:00 ROSHUNDA ity o f [facility] 2021-08-18 2021-08-18 Orders Doctor WHITMORE [id number] Univers 00:00:00 00:00:00 Only Unassigned, NA 350.1.13.10 ity of [place] [facility] 4.2.7.2.686 Rex as [id number] [address] 2021-07-27 2021-07-27 Outpatient R [facility] [id number] Univers 09:45:00 09:45:00 ity [facility] 2021-07-26 2021-07-26 Outpatient P [facility] [id number] Univers 10:30:00 10:30:00 ity [facility] 2021-07-16 2021-07-16 Outpatient [facility] [id number] Univers 10:45:00 10:45:00 OPAL [facility] 2021-07-16 2021-07-16 Orders Doctor HAIM [id number] Univers 00:00:00 00:00:00 Only Unassigned, NA 350.1.13.10 ity [facility] 4.2.7.2.686 Rex as [id number] [address] 2021-07-15 2021-07-15 Outpatient [facility] [id number] Univers 15:00:00 15:00:00 OPAL [facility] 2021-07-13 2021-07-13 Outpatient R COLEMAN [facility] [id number] Univers 10:30:00 10:30:00 OPAL [facility] 2021-07-12 2021-07-12 Patient [facility] [id number] Univers 00:00:00 00:00:00 Secure Msg Opal N MUTUEL CLERK 350.1.13.10 ity [facility] [id number] Rex as MATERNAL [id number] Med ical & CHILD [address] [place] [address] 2021-07-09 2021-07-10 Outpatient X SHANE MAGUIRE [facility] SERJIO [id number] Univers 23:34:00 08:10:00 ity [facility] 2021-07-09 2021-07-10 Emergency Abbey Mclean [facility] 1.2.840 .114 [id number] Univers 23:34:00 08:10:00 Shane Maguire 350.1.13.10 ity of [facility] 4.2.7.2.686 [place] [id number] [facility] 083 Branch 2021-07-09 2021-07-10 Outpatient X SHANE MAGUIRE [facility] SERJIO [id number] Univers 23:34:00 08:10:00 ity of [facility] 2021-07-09 2021-07-09 Orders Doctor HAIM [id number] Univers 00:00:00 00:00:00 Only Unassigned, NA 350.1.13.10 ity of [place] [facility] 4.2.7.2.686 Rex as [id number] [facility] 009 Branch 2021-07-08 2021-07-08 Routine Trimester, [facility] Res-1st UNIVERSIT 1.2.840.114 [id number] Univers 10:02:09 11:41:10 Cid, [facility] 350.1.13.10 ity of Visit CLINICS 4.2.7.2.[place] [id number] [facility] 113 Branch 2021-07-08 2021-07-08 Outpatient R CID, [facility] [id number] Univers 10:00:00 11:41:10 HOSEA ity [facility] 2021-07-08 2021-07-08 Outpatient R CID, [facility] [id number] Univers 10:00:00 11:41:10 HOSEA ity [facility] 2021-07-08 2021-07-08 Outpatient R CID, [facility] [id number] Univers 10:00:00 11:41:10 HOSEA ity [facility] 2021-07-08 2021-07-08 Outpatient R [facility] [id number] Univers 10:00:00 10:00:00 ity of [facility] 2021-07-05 2021-07-06 Emergency Lara, [facility] 1.2.840.114 [id number] Univers 23:45:00 03:07:00 Jamison Morenoton 350.1.13.10 i ty of [place] 4.2.7.2.686 [place] [id number] [facility] 084 [employer] 2021-07-05 2021-07-06 Emergency X [facility] ERT [id number] Univers 23:45:00 03:07:00 ity of [facility] 2021-07-06 2021-07-06 Telephone [facility] 1.2.840.114 [id number] Univers 00:00:00 00:00:00 Opal [place] MUTUEL CLERK 350.1.13.10 it y of REGIONAL 4.2.7.2.686 Rex as MATERNAL [id number] [facility] ical & CHILD [address] [place] [address] 2021-07-05 2021-07-05 Orders Doctor HAIM 1.2.840.114 [id number] Univers 00:00:00 00:00:00 Only Unassigned, NA 350.1.13.10 ity of [place] [facility] 4.2.7.2.686 Rex as [id number] [facility] 009 [employer] 2021-06-24 2021-06-24 Routine Trimester, [facility] Res-1st UNIVERSIT 1.2.840.114 [id number] Univers 10:32:34 11:49:51 Lo Doug [facility] 350.1.13.10 ity of Visit CLINICS 4.2.[place].2.[place] [id number] [facility] 113 [employer] 2021-06-24 2021-06-24 Outpatient R LO [facility] [id number] Univers 10:15:00 11:49:51 DOUG ozuna [facility] 2021-06-22 2021-06-22 Telephone [facility] 1.2.840.114 [id number] Univers 00:00:00 00:00:00 Opal [place] MUTUEL CLERK 350.1.13.10 it y of REGIONAL 4.2.7.2.686 Rex as MATERNAL [id number] [facility] & CHILD [address] [place] [address] 2021-06-21 2021-06-21 Outpatient R COLEMAN [facility] [id number] Univers 13:15:00 09:57:19 OPAL ozuna [facility] 2021-06-21 2021-06-21 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 114 [id number] Univers 09:37:01 09:57:19 Visit Opal Cee MUTUEL CLERK 350.1.13.10 ity of [facility] 4.2.7.2.686 Rex as MATERNAL [id number] [facility] ical & CHILD [address] [place] [address] 2021-06-21 2021-06-21 Telephone [facility] 1.2.840.114 [id number] Univers 00:00:00 00:00:00 Opal N MUTUEL CLERK 350.1.13.10 it y of [facility] 4.2.7.2.686 Rex as MATERNAL [id number] [facility] & CHILD [address] [place] [address] 2021-06-18 2021-06-18 Initial Coleman [facility] [id number] Univers 08:53:58 09:54:55 Opal [place] MUTUEL CLERK 350.1.13.10 i ty of Visit [facility] 4.2.7.2.686 Rex as MATERNAL [id number] [facility] & CHILD [address] [place] [address] 2021-06-18 2021-06-18 Initial [facility] [id number] Univers 08:53:58 09:54:55 Opal Arcadio MUTUEL CLERK 350.1.13.10 i ty of Visit [facility] 4.2.7.2.686 Rex as MATERNAL [id number] [facility] & [address] 2021-06-18 2021-06-18 Outpatient R [facility] [id number] Univers 08:30:00 08:30:00 ity of [facility] 2021-06-18 2021-06-18 Outpatient KOVACEV_T [facility] [place] 04:25:00 04:25:00 1008 Commun i ty [facility] 2021-06-18 2021-06-18 Orders Doctor WHITMORE 1.2.840.114 [id number] Univers 00:00:00 00:00:00 Only Unassigned, NA 350.1.13.10 ity of [place] [facility] 4.2.7.2.686 Rex as [id number] [address] 2021-04-08 2021-04-08 Outpatient R WHITMAN [facility] [id number] Univers 08:30:00 08:30:00 ALMA ozuna [facility] 2021-03-11 2021-03-11 Office [facility] [id number] Univers 14:28:29 14:58:53 Visit Alma Harrell 350.1.13.10 i ty of [place] 4.2.7.2.686 [place] Profess[place] [id number] [place] [address] 2021-03-11 2021-03-11 [facility] [id number] Univers 14:30:00 14:30:00 ALMA alyssia [facility] 2021-03-11 2021-03-11 Outpatient R MELANIA [facility] [id number] Univers 14:30:00 14:30:00 [facility] 2021-03-02 2021-03-06 Emergency Felice Herbert [facility] 1.2.840. [id number] Univers 08:44:00 16:01:00 Marvin Bradford [id number] it[place] [phone] [facility] 081 [address] 2021-03-05 2021-03-05 Surgery [facility] [id number] Univers 12:30:00 15:40:00 Alma Harrell [id number] i [place] [phone] [facility] 020 Branch 2021-03-03 2021-03-03 Surgery [facility] [id number] Univers 12:00:00 12:39:00 Alma Harrell [id number] i [place] [phone] [facility] 020 Branch 2021-02-27 2021-02-27 Outpatient ANNIE_T [facility] [place] 03:20:00 03:20:00 0619 [facility] 2021-01-28 2021-01-28 Outpatient KOVACEV_T [facility] [place] 06:24:00 06:24:00 0520 [facility] 2021-01-24 2021-01-24 Outpatient KOVACEV_T [facility] [place] 01:05:00 01:05:00 0516 [facility] 2021-01-21 2021-01-21 Outpatient KOVACEV_T [facility] [place] 10:23:00 10:23:00 0513 [facility] 2021-01-21 2021-01-21 Outpatient Annie, [facility] [id number] 00:00:00 00:00:00 Dale [id number] [place] [id number] [id number] 2021-01-21 2021-01-21 [facility] [place] 00:00:00 00:00:00 [facility]: [facility]ot [facility], Specialty l [address] [place] [address] , Ph. 2020-12-20 2020-12-20 Outpatient KOVACEV_T [facility] [place] 01:03:00 01:03:00 0411 [facility] 2020-12-07 2020-12-07 Outpatient KOVACEV_T [facility] [place] 05:24:00 05:24:00 0409 [facility] 2020-12-07 2020-12-07 Outpatient KOVACEV_T [facility] [place] 05:21:00 05:21:00 0329 Commun [facility] 2020-12-04 2020-12-04 Outpatient KOVACEV_T [facility] [place] 04:34:00 04:34:00 0326 Commun i ty Hospita [facility] 2020-12-01 2020-12-01 Patient Dandre VTYADIEL [id number] Univers 00:00:00 00:00:00 Outreach Alejandro PRIMARY [id number] i ty of [facility] 4.2.7.2.686 Jaun MARCH [id number] Mi dical [address] 2020-12-01 2020-12-01 [facility] [place] 00:00:00 00:00:00 [facility] diana Sherman [facility] - ty MD: 305 Luis MEZA [facility] [address] SURGERY , Ph. 2020-12-01 2020-12-01 [facility] [id number] 00:00:00 00:00:00 Dale [id number] Patrick [id number] 2020-11-24 2020-11-24 Outpatient KOVACEV_T [facility] [place] 10:25:00 10:25:00 0316 Commun i ty Hospita [facility] 2020-11-24 2020-11-24 Outpatient KOVACEV_T [facility] [place] 09:46:00 09:46:00 0316 Commun i ty Hospita [facility] 2020-11-24 2020-11-24 [facility] [id number] 00:00:00 00:00:00 Dale [id number] [place] [id number] 2020-11-24 2020-11-24 [facility] [place] 00:00:00 00:00:00 [facility] diana Sherman [facility] - ty MD: 303 Luis Meza [facility], [facility] [address] [place] [address] , Ph. 2020-11-19 2020-11-19 Outpatient KOVACEV_T [facility] [place] 05:44:00 05:44:00 0311 Commun i ty Hosp[facility] Clin[facility] 2020-11-12 2020-11-12 Outpatient KOMPEV_T [facility] [place] 09:36:00 09:36:00 0304 Commun i [facility] 2020-10-28 2020-10-28 Outpatient R [facility] [id number] Univers 10:30:00 10:30:00 ity of [facility] 2020-10-26 2020-10-26 Outpatient R JUDY, [facility] [id number] Univers 08:15:00 08:15:00 BRIDGETTE ozuna o f [facility] 2020-09-22 2020-09-22 Emergency Wideman, [facility] [id number] Univers 10:18:00 12:17:00 Nash Harrell 350.1.13.10 i [place] [id number] [facility] 084 Branch 2020-09-22 2020-09-22 Orders Doctor HAIM [id number] Univers 00:00:00 00:00:00 Only Unassigned, NA [id number] ity of [place] [facility] 4.2.7.2.686 Rex as [phone] [facility] 009 [address] 2020-07-28 2020-07-28 Nurse Visit, Tito-Rmchp Nurse [facility] 1.2 .840.114 [id number] Univers 08:00:31 08:24:28 Visit Perry Quiñonez MUTUEL CLERK [id number] ity of [facility] 4.2.7.2.686 Rex as MATERNAL [phone] Med ical & CHILD [address] [place] [address] 2020-07-28 2020-07-28 Outpatient R KHANG [facility] [id number] Univers 08:00:00 08:00:00 PERRY bernstein [facility] 2020-07-24 2020-07-24 Telephone Khang [facility] [id number] Univers 00:00:00 00:00:00 Perry Overton 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 ical & CHILD [address] [place] [address] 2020-07-23 2020-07-23 Telephone Khang [facility] [id number] Univers 00:00:00 00:00:00 Perry Overton MUTUEL CLERK 350.1.13.10 ity of [facility] 4.2.7.2.686 Rex as MATERNAL [id number] [facility] & [address] 2020-07-21 2020-07-21 Office Khang [facility] 1.2.840.114 [id number] Univers 14:10:34 15:39:48 Visit Perry Overton MUTUEL CLERK 350.1.13.10 ity of [facility] 4.2.7.2.686 Rex as MATERNAL [phone] [facility] & [address] 2020-07-21 2020-07-21 [facility] [id number] Univers 14:30:00 14:30:00 PERRY ity o f [facility] 2020-07-21 2020-07-21 Orders Doctor HAIM 1.2.840.114 [id number] Univers 00:00:00 00:00:00 Only Unassigned, NA 350.1.13.10 ity of [place] [facility] 4.2.7.2.686 Rex as [phone] [facility] 009 [employer] 2019-05-04 2019-05-04 Emergency [facility] [id number] Univers 16:52:41 19:20:00 Alton Harrell 350.1.13.10 i ty of [place] 4.2.7.2.686 [place] [facility] [phone] [facility] 084 [employer] 2019-05-04 2019-05-04 Orders Doctor HAIM 1.2.840.114 [id number] Univers 00:00:00 00:00:00 Only Unassigned, NA 350.1.13.10 ity of [place] [facility] 4.2.7.2.686 [place] as [phone] [address] Results Test Description Test Time Test Comments Results Result Comments Source TOTAL BETA HCG ASSAY 2021-12-11 05:36:04 Test Item Value Reference Range Interpretation Comme nts BETA HCG (test code = See_Comment [Auto mated message] The [id number]) system which ge nerated this result transmit dale reference range : Non- fe male and male patients: <5 mIU/mL. The reference r adriel was not used to interpr et this result as roxana l/abnormal. AIME (test code = AIME) Gestational Age ?Range (mIU/mL) 1-10 ?Weeks ?28-39621536-70 Weeks ?90070-82318541-86 Weeks ?7727-51692442-95 Weeks ?7724-795650 Biotin has been reported to cause a negative bias, interpret results relative to patient's use of biotin. [facility] (NA, K, CL, CO2, GLUCOSE, BUN, CREATININE, CA)2021-12-11 05:19:02 Test Item Value Reference Range Interpretation Comments NA (test code = 137 mmol/L 135-145 1615448643) K (test code = 4.1 mmol/L 3.5-5.0 3068533912) CL (test code = 104 mmol/L 98-108 3901207323) CO2 TOTAL (test code 25 mmol/L 23-31 = 3545648691) AGAP (test code = 2-16 9675342843) BUN (test code = 12 mg/dL 7-23 5035943530) GLUCOSE (test code = 95 mg/dL 70-110 9548928959) CREATININE (test code 0.61 mg/dL 0.50-1.04 = 8787615074) CALCIUM (test code = 8.6 mg/dL 8.6-10.6 8657059697) eGFR (test code = mL/min/1.73m2 9079177065) AIME (test code = AIME) Association of Glomerular Filtration Rate (GFR) and Staging of Kidney Disease* + + +- +| GFR (mL/min/1.73 m2) ?| With Kidney Damage ?| ?Without Kidney Damage+ ------+ ----+ ------+| ?>90 ?| ?Stage one ?| ? Normal ?+ -+ + -+| ?60-89 ?| ?Stage two ?| ? Decreased GFR ? + + +- +| ?30-59 ?| ?Stage three ?| ? Stage three ? + + +- +| ?15-29 ?| ?Stage four ? | ? Stage four ?+ -+ + -+| ?<15 (or dialysis) ? ?| ?Stage five ? | ? Stage five ?+ -+ + -+ *Each stage assumes the associated GFR level has been in effect for at least three months. ?Stages 1 to 5, with or without kidney disease, indicate chronic kidney disease. Notes: Determination of stages one and two (with eGFR >59mL/min/1.73 m2) requires estimation of kidney damage for at least three months as defined by structural or functional abnormalities of the kidney, manifested by either:Pathological abnormalities or Markers of kidney damage (including abnormalities in the composition of the blood or urine or abnormalities in imaging tests). [facility] WITH [id number] 05:07:59 Test Item Value Reference Range Interpretation Comments WBC (test code = See_Comment H [Automated 8060-2) message] The sy stem which generated this result transmitted reference range : 4.30 - 11.10 10*3/?L. The reference range was not used to interpret this result as normal/abnormal . RBC (test code = See_Comment [Automated 979-8) message] The sy stem which generated this result transmitted reference range : 3.93 - 5.25 10*6/?L. The reference range was not used to interpret this result as normal/abnormal . HGB (test code = 11.7 g/dL 11.6-15.0 718-7) HCT (test code = 37.9 % 35.7-45.2 4544-3) MCV (test code = 77.2 fL 80.6-95.5 L 787-2) MCH (test code = 23.8 pg 25.9-32.8 L 785-6) MCHC (test code = 30.9 g/dL 31.6-35.1 L 786-4) RDW-SD (test code = 52.3 fL 39.0-49.9 H 02280-6) RDW-CV (test code = 18.8 % 12.0-15.5 H 788-0) PLT (test code = See_Comment H [Automated 777-3) message] The sy stem which generated this result transmitted reference range : 166 - 358 10*3/ ?L. The reference r adriel was not used to interpret this result as normal/abnormal . MPV (test code = 10.0 fL 9.5-12.9 52494-5) NRBC/100 WBC (test See_Comment [Automat ed code = 9657514354) message] The system which generated this result transmitted reference range : 0.0 - 10.0 /100 WBCs. The refer ence range was not u sed to interpret th is result as normal/abnormal . NRBC x10^3 (test code <0.01 See_Comment [Auto mated = 2201466878) message] The s ystem which generated this result transmitted reference range : 10*3/?L. The reference range was not used to interpret this result as normal/abnormal . GRAN MAT (NEUT) % 69.9 % (test code = 770-8) IMM GRAN % (test code 0.50 % = 4236861423) LYMPH % (test code = 20.4 % 736-9) MONO % (test code = 6.3 % 5905-5) EOS % (test code = 2.6 % 713-8) BASO % (test code = 0.3 % 706-2) GRAN MAT x10^3(ANC) 8.48 10*3/uL 1.88-7.09 H (test code = 3820008082) IMM GRAN x10^3 (test 0.06 10*3/uL 0.00-0.06 code = 1057838092) LYMPH x10^3 (test code 2.48 10*3/uL 1.32-3.29 = 731-0) MONO x10^3 (test code 0.76 10*3/uL 0.33-0.92 = 742-7) EOS x10^3 (test code = 0.32 10*3/uL 0.03-0.39 711-2) BASO x10^3 (test code 0.04 10*3/uL 0.01-0.07 = 704-7) Lab Interpretation Abnormal (test code = 63467-3) [facility] [id number] 04:52:00 Test Item Value Reference Range Interpretation Comments POCT PREG (test code = 1605) Negative On board controls acceptable with positive C Line (test code = 3574) POCT PREG LOT # (test code = 3575) [id number] POCT PREG TEST DATE (test 06/10/2023 code = 3576) Lab Interpretation (test code = Normal 01345-7) [facility]"
--- NOTE | 2022-10-31 14:03 | RAD REPORT ---
EXAM DESCRIPTION: US - Extremity Venous Uni Ltd - 10/31/2022 1:56 pm CLINICAL HISTORY: PAIN Leg swelling and edema. COMPARISON: No comparisons FINDINGS: Left lower extremity venous system was interrogated with Doppler technique. Normal flow, c ompressibility and augmentation was noted. There is no DVT present. IMPRESSION: No evidence of left lower extremity deep venous thrombosis.
--- NOTE | 2022-10-31 15:26 | ER ---
Nurse's Notes [facility] Name: Linda Castillo Age: 22 yrs Sex: Female : 2000 Arrival Date: 10/31/2022 Time: 12:43 Bed IW1 Private MD: Diagnosis: Pain in left leg Presentation: 10/31 13:21 Chief complaint: Patient states: Left leg pain x 4 days. Coronavirus screen: Vaccine jl7 status: Patient reports being unvaccinated. At this time, the client does not indicate any symptoms associated with coronavirus-19. Ebola Screen: No symptoms or risks identified at this time. Initial Sepsis Screen: Does the patient meet any 2 criteria? No. Patient's initial sepsis screen is negative. Does the patient have a suspected source of infection? No. Patient's initial sepsis screen is negative. Risk Assessment: Do you want to hurt yourself or someone else? Patient reports no desire to harm self or others. Onset of symptoms was October 28, 2022. 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 - Social history:: Smoking status: Patient denies any tobacco usage or history of. Screenin:31 [facility] ED Fall Risk Assessment (Adult) History of falling in the last 3 months, ss including since admission No falls in past 3 months (0 pts). Abuse screen: Denies threats or abuse. Denies injuries from another. Nutritional screening: No deficits noted. Tuberculosis screening: Never had TB. Assessment: 16:31 General: Appears in no apparent distress. Behavior is calm, cooperative. Pain: ss Complains of pain in left calf. Neuro: Level of Consciousness is awake, alert, obeys commands, Oriented to person, place, time, situation. Cardiovascular: Capillary refill < 3 seconds is brisk in bilateral fingers. Respiratory: Airway is patent Respiratory effort is even, unlabored. Derm: Skin is intact, is healthy with good turgor, Skin is pink, warm \T\ dry. normal. Musculoskeletal: Circulation, motion, and sensation intact. Range of motion: intact in all extremities, Swelling absent. Vital Signs: 13:21 BP 114 / 72; Pulse 61; Resp 17; Temp 98.6; Pulse Ox 100% ; Weight 86.18 kg; Height 5 jl7 ft. 3 in. (160.02 cm); Pain 6/10; 13:21 Body Mass Index 33.66 (86.18 kg, 160.02 cm) jl7 ED Course: 12:43 Patient arrived in ED. mr 12:57 Nena Pollack FNP-C is [facility]. kb 12:57 Rubens Davies MD is Attending Physician. kb 13:22 Triage completed. jl7 13:22 Arm band placed on right wrist. Patient placed in waiting room, Patient notified of [facility] wait time. 16:34 No provider procedures requiring assistance completed. Patient did not have IV access ss during this emergency room visit. Administered Medications: No medications were administered Medication: 16:31 VIS not applicable for this client. ss Outcome: 15:26 Discharge ordered by MD. kb 16:34 Discharged to home ambulatory. ss 16:34 Condition: good 16:34 Discharge instructions given to patient, Instructed on discharge instructions, follow up and referral plans. medication usage, Demonstrated understanding of instructions, follow-up care, medications, Prescriptions given X 2. 16:35 Patient left the ED. ss Signatures: Nena Pollack FNP-C FNP-Ckb Barbara Jin Justina Whiteside RN RN Rosemarie Marinelli RN RN [facility]
--- NOTE | 2022-10-31 15:26 | EDPHYS ---
Physician Documentation [facility] Name: Linda Castillo Age: 22 yrs Sex: Female : 2000 Arrival Date: 10/31/2022 Time: 12:43 Bed IW1 Private MD: ED Physician Rubens Davies HPI: 10/31 16:14 This 22 yrs old Female presents to ER via Ambulatory with complaints of Leg kb Pain. 16:14 The patient presents with pain, that is acute. The complaints affect the left leg. kb Context: The problem was sustained at home, resulted from an unknown cause, the patient can fully bear weight, the patient is able to ambulate. Onset: The symptoms/episode began/occurred 4 day(s) ago. Modifying factors: The symptoms are alleviated by nothing. the symptoms are aggravated by movement, weight bearing. Associated signs and symptoms: Pertinent positives: "fullness". Treatment prior to arrival includes: no previous treatment. Severity of symptoms: At their worst the symptoms were moderate, in the emergency department the symptoms are unchanged. The patient has not experienced similar symptoms in the past. The patient has not recently seen a physician. 16:17 Patient reports she was kneeling down 4 days ago and when she stood back up she had kb pain behind her left knee. States since then she has had increasing pain and fullness to posterior left knee and left calf.. 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 - Social history:: Smoking status: Patient denies any tobacco usage or history of. ROS: 16:07 Constitutional: Negative for fever, chills, and weight loss. kb 16:07 MS/extremity: Positive for pain, of the left leg. 16:07 All other systems are negative. Exam: 16:07 Constitutional: This is a well developed, well nourished patient who is awake, alert, kb and in no acute distress. Head/Face: Normocephalic, atraumatic. ENT: Moist Mucous membranes Cardiovascular: Regular rate and rhythm with a normal S1 and S2. No gallops, murmurs, or rubs. No pulse deficits. Respiratory: Respirations even and unlabored. No increased work of breathing. Talking in full sentences Abdomen/GI: Soft, non-tender. No distention Skin: Warm, dry with normal turgor. Normal color. Neuro: Awake and alert, GCS 15, oriented to person, place, time, and situation. Moves all extremities. Normal gait. Psych: Awake, alert, with orientation to person, place and time. Behavior, mood, and affect are within normal limits. 16:07 Musculoskeletal/extremity: Extremities: grossly normal except: noted in the left calf: pain, tenderness, ROM: intact in all extremities, Circulation is intact in all extremities. Sensation intact. Weight bearing: Vital Signs: 13:21 BP 114 / 72; Pulse 61; Resp 17; Temp 98.6; Pulse Ox 100% ; Weight 86.18 kg; Height 5 jl7 ft. 3 in. (160.02 cm); Pain 6/10; 13:21 Body Mass Index 33.66 (86.18 kg, 160.02 cm) jl7 MDM: 13:19 Patient medically screened. kb 16:18 Differential diagnosis: Sprain, strain, Hayes's cyst, DVT. Data reviewed: vital signs, kb nurses notes. Test considered but Not performed: X-ray: X-ray knee considered but patient has no bony tenderness and has full range of motion without distress.. Counseling: I had a detailed discussion with the patient and/or guardian regarding: the historical points, exam findings, and any diagnostic results supporting the discharge/admit diagnosis, radiology results, the need for outpatient follow up, a family practitioner, to return to the emergency department if symptoms worsen or persist or if there are any questions or concerns that arise at home. ED course: Patient is a 22-year-old female with no medical history who presents for posterior knee pain that started 4 days ago. Reports the pain began when she stood from a kneeling position. Reports fullness she leg as well. Upon exam patient has tenderness to calf and posterior knee. Ultrasound ordered and reviewed, no DVT. Patient educated on need for follow-up with family doctor. Verbal understanding received.. 10/31 13:19 Order name: US Extremity Venous Unilateral Ltd kb 10/31 14:03 Order name: US; Complete Time: 14:03 EDMS Administered Medications: No medications were administered Disposition: 16:35 Co-signature as Attending Physician, Rubens Davies MD I reviewed the patient's care rn provided by the Advanced Practice Provider and agree with the diagnosis and treatment plan. Disposition Summary: 10/31/22 15:26 Discharge Ordered Location: Home kb Condition: Stable kb Diagnosis - Pain in left leg kb Followup: kb - With: Emergency Department - When: As needed - Reason: Worsening of condition Followup: kb - With: Private Physician - When: 2 - 3 days - Reason: Recheck today's complaints, Continuance of care, Re-evaluation by your physician Discharge Instructions: - Discharge Summary Sheet kb - Musculoskeletal Pain kb - Muscle Strain, Ngof-ra-Rnba kb Forms: - Medication Reconciliation Form kb - Thank You Letter kb - Antibiotic Education kb - Prescription Opioid Use kb - Work release form ss Prescriptions: - Diclofenac Sodium 75 mg Oral tablet,delayed release (DR/EC) - take 1 tablet by ORAL route 2 times per day As needed; 30 tablet; Refills: 0, kb Product Selection Permitted - orphenadrine citrate 100 mg Oral Tablet Sustained Release - take 1 tablet by ORAL route 2 times per day As needed; 20 tablet; Refills: 0, kb Product Selection Permitted Signatures: Dispatcher [employer] EDMS Nena Pollack, VOLUNTEER SERVICES SUPERVISOR-C VOLUNTEER SERVICES SUPERVISOR-Rubens Williamson MD MD rn Leal, Jahala, RN RN jl7 Corrections: (The following items were deleted from the chart) 16:14 16:07 Musculoskeletal/extremity: Extremities: grossly normal except: noted in the left kb calf: pain, tenderness, ROM: intact in all extremities, Circulation is intact in all extremities. Sensation intact. kb 16:18 16:14 Onset: The symptoms/episode began/occurred 3 day(s) ago, kb kb
[2022-10-31 17:54] VITALS: BP 114/72; TEMP 98.6; O2SAT 100
== END 2022-10-31 16:35 | disposition home or self-care (01) ==
LOC: ER 12:40
DX: M79.605 Pain in left leg (principal)
CPT/HCPCS: 93971; 99282

== ENCOUNTER 2022-11-07 18:13 | Emergency (ER) | payer SELFPAY ==
--- OUTSIDE RECORDS SUMMARY | 2022-11-07 18:23 | XMS REPORT | Continuity of Care Document ---
:2000 Author Organization [facility] t Address [address] [place] [address] Care Team Providers Name Role Phone PCP, PATIENT DOES NOT HAVE A Primary Care Physician Unavaila HOSEA Kelly Attending Clinician Unavailable NIC WRIGHT Attending Clinician Unavailable Nic Hoyos S Attending Clinician Wilfred Gomez Attending Clinician [phone] WILFRED PADILLA Attending Clinician Unavailable PERRY QUIÑONEZ Attending Clinician Unavailable JAMISON LARA Attending Clinician Unavailable Jamison Berkowitz Attending Clinician Doctor Unassigned, [place] Attending Clinician Unavailable Perry Handy Attending Clinician FELICE CEE Attending Clinician Unavailable Felice Gillis Attending Clinician SHANE MAGUIRE Attending Clinician Unavailable Abbey Gould Attending Clinician Shane Maguire MD Attending Clinician [facility] Attending Clinician Unavailable Hosea Cid MD Attending Clinician Eugene Blanchard MD Attending Clinician EUGENE BLANCHARD Attending Clinician Unavailable [facility] Attending Clinician Unavailable KOVACEV_T Attending Clinician Unavailable DOTTY WHITMAN Attending Clinician Unavailable Dotty Whitman MD Attending Clinician Felice Herbert MD Attending Clinician Marvin Bradford MD Attending Clinician Carole Sherman Attending Clinician [phone] Alejandro Amos DO Attending Clinician Nash Jaimes Attending Clinician [facility]ending [facility]ician Unavailable Alton Barrientos Attending Clinician HOSEA CID Admitting Clinician Unavailable SHANE MAGUIRE Admitting Clinician Unavailable Shane Maguire MD Admitting Clinician JAMISON LARA Admitting Clinician Unavailable LANE_T Admitting Clinician Unavailable Marvin Bradford MD Admitting Clinician Payers Payer Name Policy Type Policy Number Effective Date Expiration Date S johny [place] OF [place] [id number] 2021 00:00:00 [facility] [id number] 2021 00:00:00 [place] - [id number] WOMEN'S HEALTH PROGRAM (MEDICAID) Problems Condition Condition Condition Status Onset Resolution Last Treating Co mments Source Name Details Category Date Date Treatment Clinician Date Supervisio Supervisio Disease Active U nivers n of n of 12-09 ity of high-risk [place] [facility] [place] History of History of Disease Active U nivers miscarriag miscarriag 12-09 it y of e e 00:: [place] [facility] Branch Obesity in Obesity in Disease Active U nivers 12-09 ity of 00:00: [address] Branch Ovarian Ovarian Disease Active Overview: Univ ers torsion torsion 12-09 Formattin ity o f 00:00: g of this note Medical might be Branch different from the original. Reports hist lolly in 2019 Elevated Elevated Disease Active Unive rs blood blood 3-31 ity of pressure pressure 00:00: [place] reading reading 00 Medical without without Branch [...] Active Univers ALLERGIE Class ity of S [facility] Social History Social Habit Start Date Stop Date Quantity Comments Source ASSERTION 2021-11-18 University of 00:00:00 [facility] History SDOH University o f Alcohol Frequency [facility] Branch History SDOH University o f Alcohol Std Drinks [facility] History SDCT University o f Alcohol Binge [facility] Branch Exposure to 2022-02-04 2022-02-14 Not sure University of SARS-CoV-2 (event) 00:00:00 09:14:00 [facility] Alcohol intake 2021-12-10 2021-12-10 Ex-drinker University of 00:00:00 00:00:00 (finding) [facility] Tobacco use and 2021-12-09 2021-12-09 Never used Universit y of exposure 00:00:00 00:00:00 [facility] Cigarettes smoked 2021-12-09 2021-12-09 Univers ity of current (pack per 00:00:00 00:00:[address] [facility] ) - Reported Branch Cigarette 2021-12-09 2021-12-09 University of pack-years 00:00:00 00:00:00 [facility] Alcohol Comment 2021-11-22 2021-11-22 social Universit y of 00:00:00 00:00:00 [facility] History of tobacco 2018-02-16 2021-06-11 Cigarette Smoker University of use 00:00:00 00:00:00 [facility] Sex Assigned At 2000 2000 Universit y of 00:00:00 00:00:00 [facility] Smoking Status Start Date Stop Date Source Light Tobacco Smoker [facility] Former smoker 2021-12-09 00:00:00 2021-12-09 00:00:00 [facility] Medications Ordered Filled Start Stop Current Ordering Indication Dosage Frequency Signature Comments Components Source Medication Medication Date Date Medication? Clinician (SIG) Name Name ondansetron Yes [id number] 4mg Take 1 Univers 4 mg 6-06 tablet by ity of disintegrat 00:00: mouth [place] ing tablet 00 every 8 Medica l (eight) Branch hours as needed for Nausea and Vomiting (N/V). valACYclovi 2021- No [id number] 1g Take 1 Univers r 1 gram 6-06 06-14 tablet by ity o f tablet 00:00: 04:59 mouth 3 [place] 00 :00 (three) Medical times Branch daily for 7 days. Yes [id number] 1{tbl} Take 1 U nivers multivitami 3-31 tablet by ity of n ( 00:00: mouth [place] VITAMIN) 00 daily. Medical tablet Branch Yes [id number] 1{tbl} Take 1 U nivers multivitami 3-31 tablet by ity of n ( 00:00: mouth [place] VITAMIN) 00 daily. Medical tablet Branch Yes [id number] 1{tbl} Take 1 U nivers multivitami 3-31 tablet by ity of n ( 00:00: mouth [place] VITAMIN) 00 daily. Medical tablet Branch Yes [id number] 1{tbl} Take 1 U nivers multivitami 3-31 tablet by ity of n ( 00:00: mouth [place] VITAMIN) 00 daily. Medical tablet Branch ondansetron ondansetron No ondansetro [facility] sucralfate sucralfate No sucralfate [facility] Tylenol w Tylenol w No 1 Q6H Tylenol w [facility] Codeine Codeine Codeine Commun i 300-60 mg 300-60 mg 300-60 mg ty tablet Take tablet Take tablet Hospita 1 tablet 1 tablet Take 1 l every 6 every 6 tablet Clinics hours by hours by every 6 oral route. oral route. hours by oral route. ondansetron ondansetron No ondansetro [facility] sucralfate sucralfate No sucralfate [facility] Tylenol w Tylenol w No 1 Q6H Tylenol w [facility] Codeine Codeine Codeine Commun i 300-60 mg 300-60 mg 300-60 mg ty tablet Take tablet Take tablet Hospita 1 tablet 1 tablet Take 1 l every 6 every 6 tablet Clinics hours by hours by every 6 oral route. oral route. hours by oral route. ondansetron ondansetron No ondansetro [facility] sucralfate sucralfate No sucralfate [facility] Tylenol w Tylenol w No 1 Q6H Tylenol w [facility] Codeine Codeine Codeine Commun i 300-60 mg 300-60 mg 300-60 mg ty tablet Take tablet Take tablet Hospita 1 tablet 1 tablet Take 1 l every 6 every 6 tablet Clinics hours by hours by every 6 oral route. oral route. hours by oral route. Immunizations Ordered Filled Immunization Date Status Comments [facility] e Immunization Name Name Influenza Virus 2021-12-09 Completed Universit y of Vaccine Quad IM, 00:00:00 [facility] dical Preserv and ABX Branch Free 6 MO-64 YRS Influenza Virus 2021-12-09 Completed Universit y of Vaccine [facility] IM, 00:00:00 [place] Me dical Preserv and ABX Branch Free 6 MO-64 YRS Influenza Virus 2021-12-09 Completed Universit y of Vaccine [facility] IM, 00:00:00 [place] Me dical Preserv and ABX Branch Free 6 MO-64 YRS Influenza Virus 2021-12-09 Completed Universit y of Vaccine [facility] IM, 00:00:00 [place] Me dical Preserv and ABX Branch Free 6 MO-64 YRS Influenza Virus 2021-06-18 Completed Universit y of Vaccine [facility] IM, 00:00:00 [place] Me dical Preserv and ABX Branch Free 6 MO-64 YRS Influenza Virus 2021-06-18 Completed Universit y of Vaccine [facility] IM, 00:00:00 [place] Me dical Preserv and ABX Branch Free 6 MO-64 YRS Influenza Virus 2021-06-18 Completed Universit y of Vaccine [facility] IM, 00:00:00 [facility] dical Preserv and ABX Branch Free 6 MO-64 YRS Influenza Virus 2021-06-18 Completed Universit y of Vaccine [facility] IM, 00:00:00 [facility] dical Preserv and ABX Branch Free 6 MO-64 YRS Influenza Virus 2020-07-21 Completed Universit y of Vaccine Quad .5 mL 00:00:00 [place] [facility] IM 6+ MO Branch Influenza Virus 2020-07-21 Completed Universit y of Vaccine Quad .5 mL 00:00:00 [place] [facility] IM 6+ [place] Branch Influenza Virus 2020-07-21 Completed Universit y of Vaccine Quad .5 mL 00:00:00 [place] [facility] IM 6+ [place] Branch Influenza Virus 2020-07-21 Completed Universit y of Vaccine Quad .5 mL 00:00:00 [facility] 6+ MO Branch HPV 2011-06-27 Completed University of 00:00:00 [facility] Influenza Virus 2011-06-27 Completed Universit y of Vaccine - Whole 00:00:00 [facility] HPV 2011-06-27 Completed University of 00:00:00 [facility] Influenza Virus 2011-06-27 Completed Universit y of Vaccine - Whole 00:00:00 [facility] HPV 2011-06-27 Completed University of 00:00:00 [facility] Influenza Virus 2011-06-27 Completed Universit y of Vaccine - Whole 00:00:00 [facility] HPV 2011-06-27 Completed University of 00:00:00 [facility] Influenza Virus 2011-06-27 Completed Universit y of Vaccine - Whole 00:00:00 [facility] Vital Signs Vital Name Observation Time Observation Value Comments Source Systolic blood 2022-02-14 14:15:00 127 mm[Hg] Univer sity of pressure [facility] Diastolic blood 2022-02-14 14:15:00 76 mm[Hg] Unive rsity of pressure [facility] Heart rate 2022-02-14 14:15:00 83 /min [facility] Body temperature 2022-02-14 14:15:00 37.17 Susan [facility] ersity [facility] Respiratory rate 2022-02-14 14:15:00 14 /min [facility] Body height 2022-02-14 14:15:00 160 cm [facility] Body weight 2022-02-14 14:15:00 96.163 kg Universi ty of [place] [facility] BMI 2022-02-14 14:15:00 37.55 kg/m2 Universi ty [facility] Oxygen saturation in 2022-02-14 14:15:00 99 /min University of Arterial blood by [facility] Pulse oximetry Branch Systolic blood 2021-12-11 04:28:00 130 mm[Hg] Univer sity of pressure [facility] Diastolic blood 2021-12-11 04:28:00 80 mm[Hg] Unive rsity of pressure [facility] Heart rate 2021-12-11 04:28:00 84 /min Universi ty of [facility] Body temperature 2021-12-11 04:28:00 37.11 Susan [facility] Respiratory rate 2021-12-11 04:28:00 18 /min [facility] Body height 2021-12-11 04:28:00 160 cm Universi ty [facility] Body weight 2021-12-11 04:28:00 93.895 kg Universi ty [facility] BMI 2021-12-11 04:28:00 36.67 kg/m2 Universi ty [facility] Oxygen saturation in 2021-12-11 04:28:00 100 /min University of Arterial blood by [facility] Pulse oximetry Branch BP Diastolic 2021-01-21 00:00:00 65 mm[Hg] [facility] s Height 2021-01-21 00:00:00 63 [in_i] [facility] s BMI (Body Mass 2021-01-21 00:00:00 39.7 kg/m2 [facility] s BP Systolic 2021-01-21 00:00:00 129 mm[Hg] [facility] s Body Weight 2021-01-21 00:00:00 3584 [oz_av] [facility] s BP Diastolic 2020-11-24 00:00:00 70 mm[Hg] [facility] s Height 2020-11-24 00:00:00 63 [in_i] [facility] s BMI (Body Mass 2020-11-24 00:00:00 37.4 kg/m2 [facility] s BP Systolic 2020-11-24 00:00:00 112 mm[Hg] [facility] s Body Weight 2020-11-24 00:00:00 3376 [oz_av] [facility] s Procedures Procedure Date / Time Performing Clinician Source Performed CONSENT/REFUSAL FOR 2022-02-14 14:09:51 Doctor Unassigned, No Un [facility] DIAGNOSIS AND TREATMENT Name [facility] POCT TEST 2021-12-11 04:52:00 Jamison Lara [facility] BASIC METABOLIC PANEL 2021-12-11 04:49:00 Jamison Lara [facility] (NA, K, CL, CO2, [facility] GLUCOSE, BUN, CREATININE, CA) TOTAL BETA HCG ASSAY 2021-12-11 04:49:00 Jamison Lara [facility] CBC WITH DIFF 2021-12-11 04:49:00 [facility] 2021-12-11 04:49:00 Osbaldo [facility] [place], hepatobiliary scan, 2020-11-24 00:00:00 [facility] Clinics Encounters Start End Encounter Admission Attending Care Care Encounter Source Date/Time Date/Time Type Type Clinicians Facility Department ID 2021-07-[address] [facility] [id number] Univers 09:37:08 [facility] 2021-07-[address] [facility] [id number] Univers 02:48:05 [facility] 2021-07-[address] [facility] [id number] Univers 16:43:23 [facility] 2021-07-08 Outpatient R CID 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 Rex as MATERNAL [id number] Med ical & CHILD [address] [place] [address] 2021-12-23 2021-12-23 Outpatient R JUDY, [facility] [id number] Univers 08:00:00 08:00:[address] [facility] 2021-12-23 2021-12-23 Outpatient R JUDY, [facility] [id number] Univers 08:00:00 08:00:[address] [facility] 2021-12-13 2021-12-13 Outpatient R QUIÑONEZ, [facility] [id number] Univers 13:15:00 13:15:[address] [facility] 2021-12-13 2021-12-13 Outpatient R JUDY, [facility] [id number] Univers 10:30:00 10:30:[address] [facility] 2021-12-10 2021-12-11 Emergency X LARA, [facility] ERT [id number] Univers 23:34:00 01:12:00 JAMISON sulma [facility] 2021-12-10 2021-12-11 Emergency Lara, [facility] 1.2.840.114 [id number] Univers 23:34:00 01:12:00 Jamison MORENOLEANDER [id number] i ty of [place] [id number] [facility] [id number] [address] 2021-12-10 2021-12-10 Telephone [facility] [id number] Univers 00:00:00 00:00:00 Wilfred C MANAGER STYLIST [id number] ity of REGIONAL 4.2.7.2.686 Rex as MATERNAL [id number] [facility] & [address] 2021-12-09 2021-12-09 Initial [facility] [id number] Univers 14:15:00 14:58:41 Wilfred C MANAGER STYLIST [id number] ity of Visit REGIONAL 4.2.7.2.686 Rex as MATERNAL [id number] [facility] & CHILD [address] [place] [address] 2021-12-09 2021-12-09 Outpatient R [facility] [id number] Univers 14:15:00 14:58:41 WILFRED ity o f [facility] 2021-12-09 2021-12-09 Orders Doctor WHITMORE 1.2.840.114 [id number] Univers 00:00:00 00:00:00 Only Unassigned, NA [id number] ity of [place] [facility] 4.2.7.2.686 Rex as [id number] [address] 2021-11-22 2021-11-22 Office [facility] [id number] Univers 15:00:00 16:04:57 Visit [facility] R MANAGER STYLIST [id number] ity of [facility] [id number] Rex as MATERNAL [id number] [facility] & CHILD [address] [place] [address] 2021-11-22 2021-11-22 [facility] [id number] Univers 15:00:00 16:04:57 ROSNDA ity o f [facility] 2021-11-22 2021-11-22 [facility] [id number] Univers 15:00:00 15:00:00 ROSHUNDA ity o f [facility] 2021-08-18 2021-08-18 Orders Doctor WHITMORE [id number] [id number] Univers 00:00:00 00:00:00 Only Unassigned, NA [id number] ity of [place] [facility] 4.2.7.2.686 Rex as [id number] [address] 2021-07-27 2021-07-[address] [facility] [id number] Univers 09:45:00 09:45:00 ity [facility] 2021-07-26 2021-07-[address] [facility] [id number] Univers 10:30:00 10:30:00 ity [facility] 2021-07-16 2021-07-16 [facility] [id number] Univers 10:45:00 10:45:00 FELICE [facility] 2021-07-16 2021-07-16 Orders Doctor HAIM [id number] [id number] Univers 00:00:00 00:00:00 Only Unassigned, NA [id number] [facility] 4.2.7.2.686 Rex as [id number] [address] 2021-07-15 2021-07-15 Out[facility] [id number] Univers 15:00:00 15:00:00 FELICE [facility] 2021-07-13 2021-07-13 Outpatient R COLEMAN [facility] [id number] Univers 10:30:00 10:30:00 FELICE [facility] 2021-07-12 2021-07-12 Patient [facility] [id number] Univers 00:00:00 00:00:00 Secure Msg Felice N MANAGER STYLIST [id number] ity [facility] [id number] Rex as MATERNAL [id number] Med ical & CHILD [address] [place] [address] 2021-07-09 2021-07-10 Outpatient X SHANE MAGUIRE [facility] SERJIO [id number] Univers 23:34:00 08:10:00 ity [facility] 2021-07-09 2021-07-10 Emergency Abbey Mclean [facility] 1.2.840 .114 [id number] Univers 23:34:00 08:10:00 Shane Maguire [id number] ity of [facility] 4.2.7.2.686 [place] [facility] [id number] [facility] 083 Branch 2021-07-09 2021-07-10 Outpatient X SHANE MAGUIRE [facility] SERJIO [id number] Univers 23:34:00 08:10:00 ity of [facility] 2021-07-09 2021-07-09 Orders Doctor HAIM 1.2.840.114 [id number] Univers 00:00:00 00:00:00 Only Unassigned, NA [id number] ity of [place] [facility] 4.2.7.2.686 Rex as [id number] [facility] 009 Branch 2021-07-08 2021-07-08 Routine Trimester, [facility] Res-1st UNIVERSIT 1.2.840.114 [id number] Univers 10:02:09 11:41:10 Cid, Hosea [facility] 350.1.13.10 ity of Visit CLINICS 4.2.7.2.686 [place] [id number] [facility] 113 Branch 2021-07-08 2021-07-08 Outpatient R CID, [facility] [id number] Univers 10:00:00 11:41:10 HOSEA ity [facility] 2021-07-08 2021-07-08 Outpatient R CID, [facility] [id number] Univers 10:00:00 11:41:10 HOSEA ity [facility] 2021-07-08 2021-07-08 Outpatient R CID, [facility] [id number] Univers 10:00:00 11:41:10 HOSEA ity [facility] 2021-07-08 2021-07-[address] [facility] [id number] Univers 10:00:00 10:00:00 ity of [facility] 2021-07-05 2021-07-06 Emergency Lara, [facility] 1.2.840.114 [id number] Univers 23:45:00 03:07:00 Jamison Morenoton 350.1.13.10 i ty of [place] 4.2.7.2.686 [place] [id number] [facility] 0[address] [place] 2021-07-05 2021-07-[address] [facility] ERT [id number] Univers 23:45:00 03:07:00 ity of [facility] 2021-07-06 2021-07-06 Telephone [facility] 1.2.840.114 [id number] Univers 00:00:00 00:00:00 Felice Ervin MANAGER STYLIST 350.1.13.10 it y of REGIONAL 4.2.7.2.686 Rex as MATERNAL [id number] [facility] ical & CHILD [address] [place] [address] 2021-07-05 2021-07-05 Orders Doctor HAIM 1.2.840.114 [id number] Univers 00:00:00 00:00:00 Only Unassigned, NA 350.1.13.10 ity of [place] [facility] 4.2.7.2.686 Rex as [id number] [facility] [address] [place] 2021-06-24 2021-06-24 Routine Trimester, [facility] Res-1st UNIVERSIT 1.2.840.114 [id number] Univers 10:32:34 11:49:51 Lo Eugene [facility] 350.1.13.10 ity of Visit CLINICS 4.2.7.2.686 [place] [id number] [facility] 113 [place] 2021-06-24 2021-06-24 Outpatient R LO [facility] [id number] Univers 10:15:00 11:49:51 EUGENE ozuna [facility] 2021-06-22 2021-06-22 Telephone [facility] 1.2.840.114 [id number] Univers 00:00:00 00:00:00 Felice Ervin MANAGER STYLIST 350.1.13.10 it y of REGIONAL 4.2.7.2.686 Rex as MATERNAL [id number] [facility] & CHILD [address] [place] [address] 2021-06-21 2021-06-21 [address] R [address] [facility] [id number] Univers 13:15:00 09:57:19 FELICE ozuna [facility] 2021-06-21 2021-06-21 Relay Checker Lab, [facility] 1.2.840. 114 [id number] Univers 09:37:01 09:57:19 Visit Felice Cee MANAGER STYLIST 350.1.13.10 ity of [facility] 4.2.7.2.686 Rex as MATERNAL [id number] [facility] ical & CHILD [address] [place] [address] 2021-06-21 2021-06-21 Telephone [facility] 1.2.840.114 [id number] Univers 00:00:00 00:00:00 Felice N MANAGER STYLIST 350.1.13.10 it y of [facility] 4.2.7.2.686 Rex as MATERNAL [id number] [facility] & CHILD [address] [place] [address] 2021-06-18 2021-06-[address] [facility] [id number] Univers 08:53:58 09:54:55 Felice Ervin MANAGER STYLIST 350.1.13.10 i ty of Visit [facility] 4.2.7.2.686 Rex as MATERNAL [id number] [facility] & CHILD [address] [place] [address] 2021-06-18 2021-06-18 Initial [facility] [id number] Univers 08:53:58 09:54:55 Felice Arcadio MANAGER STYLIST 350.1.13.10 i ty of Visit [facility] 4.2.7.2.686 Rex as MATERNAL [id number] [facility] & [address] 2021-06-18 2021-06-[address] [facility] [id number] Univers 08:30:00 08:30:00 ity of [facility] 2021-06-18 2021-06-18 Outpatient KOVACEV_T [facility] [place] 04:25:00 04:25:00 1008 Commun i [facility] 2021-06-18 2021-06-18 Orders Doctor WHITMORE 1.2.840.114 [id number] Univers 00:00:00 00:00:00 Only Unassigned, NA 350.1.13.10 ity of [place] [facility] 4.2.7.2.686 Rex as [id number] [address] 2021-04-08 2021-04-08 Outpatient R WHITMAN [facility] [id number] Univers 08:30:00 08:30:00 DOTTY ozuna [facility] 2021-03-11 2021-03-11 Office [facility] [id number] Univers 14:28:29 14:58:53 Visit Dotty Harrell 350.1.13.10 i ty of [place] 4.2.7.2.686 [place] [facility] [phone] [address] 2021-03-11 2021-03-11 [facility] [id number] Univers 14:30:00 14:30:00 DOTTY alyssia [facility] 2021-03-11 2021-03-11 [address] R [address]ELAN[address] [facility] [id number] Univers 14:30:00 14:30:00 [facility] 2021-03-02 2021-03-06 Emergency Felice Herbert [facility] [id number]. [id number] Univers 08:44:00 16:01:00 Marvin Bradford [id number] [place] [id number] [facility] [address] 2021-03-05 2021-03-05 Surgery [facility] [id number] Univers 12:30:00 15:40:00 Dotty Harrell [id number] [place] [id number] [facility] 0[address] 2021-03-03 2021-03-03 Surgery [facility] [id number] Univers 12:00:00 12:39:00 Dotty Harrell [id number] [place] [phone] [facility] 020 [address] 2021-02-27 2021-02-[address]_T [facility] [place] 03:20:00 03:20:00 0619 [facility] 2021-01-28 2021-01-28 Outpatient KOVACEV_T [facility] [place] 06:24:00 06:24:00 0520 [facility] 2021-01-24 2021-01-24 Outpatient KOVACEV_T [facility] [place] 01:05:00 01:05:00 0516 [facility] 2021-01-21 2021-01-21 Outpatient KOVACEV_T [facility] [place] 10:23:00 10:23:00 0513 [facility] 2021-01-21 2021-01-[address], [facility] [id number] 00:00:00 00:00:00 Carole [id number] [place] [phone] [id number] 2021-01-21 2021-01-21 [facility] [place] 00:00:00 00:00:00 [facility] Specialty l [address] [place] [address] , Ph. 2020-12-20 2020-12-20 Outpatient KOVACEV_T [facility] [place] 01:03:00 01:03:00 0411 [facility] 2020-12-07 2020-12-07 Outpatient KOVACEV_T [facility] [place] 05:24:00 05:24:00 0409 [facility] 2020-12-07 2020-12-07 Outpatient KOVACEV_T [facility] [place] 05:21:00 05:21:00 0329 Commun [facility] 2020-12-04 2020-12-04 Outpatient KOVACEV_T [facility] [place] 04:34:00 04:34:00 0326 Commun i ty Hospita [facility] 2020-12-01 2020-12-01 Patient Dandre OKYADIEL [id number] Univers 00:00:00 00:00:00 Outreach Alejandro PRIMARY [id number] i ty of [facility] 4.2.7.2.686 Jaun MARCH [id number] Wi dical [address] 2020-12-01 2020-12-01 [facility] [place] 00:00:00 00:00:00 [facility] diana Sherman [facility] - ty MD: [address] [facility] [id number] SURGERY , Ph. 2020-12-01 2020-12-01 [facility] [id number] 00:00:00 00:00:00 Carole [id number] Patrick [id number] 2020-11-24 2020-11-24 Outpatient KOVACEV_T [facility] [place] 10:25:00 10:25:00 0316 Commun i ty Hospita l [facility] 2020-11-24 2020-11-24 Outpatient KOVACEV_T [facility] [place] 09:46:00 09:46:00 0316 Commun i ty Hospita l [facility] 2020-11-24 2020-11-24 [facility] [id number] 00:00:00 00:00:00 Carole [id number] [place] [phone] [id number] 2020-11-24 2020-11-24 [facility] [place] 00:00:00 00:00:00 [facility] diana Sherman [facility] - ty MD: 303 Luis Meza [facility] [address] [place] [address] , Ph. 2020-11-19 2020-11-19 Outpatient KOVACEV_T [facility] [place] 05:44:00 05:44:00 0311 Commun i ty Hosp[facility] Clinics 2020-11-12 2020-11-12 Outpatient KOMPEV_T [facility] [place] 09:36:00 09:36:00 0304 Commun i ty Hosp[facility] Clinics 2020-10-28 2020-10-[address] [facility] [id number] Univers 10:30:00 10:30:00 ity of [facility] 2020-10-26 2020-10-26 Outpatient R JUDY, [facility] [id number] Univers 08:15:00 08:15:00 WILFRED ozuna o f [facility] 2020-09-22 2020-09-22 Emergency [place], [facility] [id number] Univers 10:18:00 12:17:00 Nash Harrell 350.1.13.10 [place] [phone] [facility] [address] 2020-09-22 2020-09-22 Orders Doctor HAIM [id number] Univers 00:00:00 00:00:00 Only Unassigned, NA [id number] ity of [place] [facility] 4.2.7.2.686 Rex as [phone] [facility] [address] 2020-07-28 2020-07-28 Nurse Visit, Tito-Rmchp Nurse [facility] 1.2 .840.114 [id number] Univers 08:00:31 08:24:28 Visit Perry Quiñonez MANAGER STYLIST [id number] ity of [facility] 4.2.7.2.686 Rex as MATERNAL [phone] Med ical & CHILD [address] [place] [address] 2020-07-28 2020-07-28 Outpatient R KHANG [facility] [id number] Univers 08:00:00 08:00:00 PERRY bernstein [facility] 2020-07-24 2020-07-[address] [facility] [id number] Univers 00:00:00 00:00:00 Perry Overton MANAGER STYLIST [id number] ity of [facility] 4.2.7.2.686 Rex as MATERNAL [id number] [facility] ical & CHILD [address] [place] [address] 2020-07-23 2020-07-[address] [facility] [id number] Univers 00:00:00 00:00:00 Perry Overton MANAGER STYLIST 350.1.13.10 ity of [facility] 4.2.7.2.686 Rex as MATERNAL [phone] [facility] & [address] 2020-07-21 2020-07-[address] [facility] 1.2.840.114 [id number] Univers 14:10:34 15:39:48 Visit Perry Overton MANAGER STYLIST 350.1.13.10 ity of [facility] 4.2.7.2.686 Rex as MATERNAL [id number] [facility] & [address] 2020-07-21 2020-07-21 [facility] [id number] Univers 14:30:00 14:30:00 PERRY ity o f [facility] 2020-07-21 2020-07-21 Orders Doctor HAIM 1.2.840.114 [id number] Univers 00:00:00 00:00:00 Only Unassigned, NA 350.1.13.10 ity of [place] [facility] 4.2.7.2.686 Rex as [phone] [facility] [address] [place] 2019-05-04 2019-05-04 Emergency [facility] [id number] Univers 16:52:41 19:20:00 Alton Harrell 350.1.13.10 i ty of [place] 4.2.7.2.686 [place] [facility] [id number] [facility] [address] [place] 2019-05-04 2019-05-04 Orders Doctor HAIM 1.2.840.114 [id number] Univers 00:00:00 00:00:00 Only Unassigned, NA 350.1.13.10 ity of [place] [facility] 4.2.7.2.686 [place] [id number] [address] Results Test Description Test Time Test Comments Results Result Comments Source TOTAL BETA HCG ASSAY 2021-12-11 05:36:04 Test Item Value Reference Range Interpretation Comme nts BETA HCG (test code = See_Comment [Auto mated message] The [id number]) system which ge nerated this result transmit carole reference range : Non- fe male and male patients: <5 mIU/mL. The reference r adriel was not used to interpr et this result as roxana l/abnormal. AIME (test code = AIME) Gestational Age ?Range (mIU/mL) 1-10 ?Weeks ?[id number] Weeks ?48332-85534374-37 Weeks ?5617-11344494-63 Weeks ?5211-160371 Biotin has been reported to cause a negative bias, interpret results relative to patient's use of biotin. [facility] (NA, K, CL, CO2, GLUCOSE, BUN, CREATININE, CA)2021-12-11 05:19:02 Test Item Value Reference Range Interpretation Comments NA (test code = 137 mmol/L 135-145 5602731850) K (test code = 4.1 mmol/L 3.5-5.0 1008553472) CL (test code = 104 mmol/L 98-108 8970033734) CO2 TOTAL (test code 25 mmol/L 23-31 = 8637252970) AGAP (test code = 2-16 4319247908) BUN (test code = 12 mg/dL 7-23 3303217446) GLUCOSE (test code = 95 mg/dL 70-110 9739200059) CREATININE (test code 0.61 mg/dL 0.50-1.04 = 2512977164) CALCIUM (test code = 8.6 mg/dL 8.6-10.6 9999821445) eGFR (test code = mL/min/1.73m2 5303285033) AIME (test code = AIME) Association of [...] or urine or abnormalities in imaging tests). [facility] WITH [id number] 05:07:59 Test Item Value Reference Range Interpretation Comments WBC (test code = See_Comment H [Automated 5045-2) message] The sy stem which generated this result transmitted reference range : 4.30 - 11.10 10*3/?L. The reference range was not used to interpret this result as normal/abnormal . RBC (test code = See_Comment [Automated 885-8) message] The sy stem which generated this [...] (test code = 52.3 fL 39.0-49.9 H 41850-8) RDW-CV (test code = 18.8 % 12.0-15.5 H 788-0) PLT (test code = See_Comment H [Automated 777-3) message] The sy stem which generated this result transmitted reference range : 166 - 358 10*3/ ?L. The reference r adriel was not used to interpret this result as normal/abnormal . MPV (test code = 10.0 fL 9.5-12.9 86376-8) NRBC/100 WBC (test See_Comment [Automat ed code = 0886875893) message] The system which generated this result transmitted reference range : 0.0 - 10.0 /100 WBCs. The refer ence range was not u sed to interpret th is result as normal/abnormal . NRBC x10^3 (test code <0.01 See_Comment [Auto mated = 8037561537) message] The s ystem which generated this result transmitted reference range : 10*3/?L. The reference range was not used to interpret this result as normal/abnormal . GRAN MAT (NEUT) % 69.9 % (test code = 770-8) IMM GRAN % (test code 0.50 % = 7602918868) LYMPH % (test code = 20.4 % 736-9) MONO % (test code = 6.3 % 5905-5) EOS % (test code = 2.6 % 713-8) BASO % (test code = 0.3 % 706-2) GRAN MAT x10^3(ANC) 8.48 10*3/uL 1.88-7.09 H (test code = 5088137291) IMM GRAN x10^3 (test 0.06 10*3/uL 0.00-0.06 code = 3769951073) LYMPH x10^3 (test code 2.48 10*3/uL 1.32-3.29 = 731-0) MONO x10^3 (test code 0.76 10*3/uL 0.33-0.92 = 742-7) EOS x10^3 (test code = 0.32 10*3/uL 0.03-0.39 711-2) BASO x10^3 (test code 0.04 10*3/uL 0.01-0.07 = 704-7) Lab Interpretation Abnormal (test code = 99928-8) [id number] 04:52:00 Test Item Value Reference Range Interpretation Comments POCT PREG (test code = 1605) Negative On board controls acceptable with positive C Line (test code = 3574) POCT PREG LOT # (test code = 3575) [id number] POCT PREG TEST DATE (test 06/10/2023 code = 3576) Lab Interpretation (test code = Normal 03380-0) [facility]"
--- NOTE | 2022-11-07 19:07 | RAD REPORT ---
EXAM DESCRIPTION: Tarast Pa And Lat (2 Views)11/07/2022 6:52 pm CLINICAL HISTORY: CHEST PAIN COMPARISON: None available TECHNIQUE: PA and lateral views of the chest. FINDINGS: The lungs are clear. No pneumothorax or effusion. The cardiomediastinal contours are unrem arkable. IMPRESSION: No acute cardiopulmonary process.
--- NOTE | 2022-11-07 19:41 | EDPHYS ---
Physician Documentation [facility] Name: Linda Castillo Age: 22 yrs Sex: Female : 2000 Arrival Date: 11/07/2022 Time: 18:14 Bed DX3 Private MD: ED Physician Estiven Cid HPI: 11/07 19:36 This 22 yrs old Female presents to ER via Ambulatory with complaints of rib sp3 pain on left side. 19:36 22-year-old female with no significant past medical history presents with chief sp3 complaint left-sided rib and chest pain for approximately 3 days. Patient states that she hit in the chest accidentally during a family reunion. She denies any shortness of breath, back pain, abdominal pain, neck pain, loss of consciousness, syncope, near syncope, any other ROS at this time.. Historical: - Allergies: 18:26 No Known Allergies; ld1 - PMHx: 18:26 None; ld1 - PSHx: 18:26 Cholecystectomy; ld1 - Immunization history:: Adult Immunizations up to date, Client reports receiving the 2nd dose of the Covid vaccine. - Social history:: Smoking status: Patient denies any tobacco usage or history of. Patient/guardian denies using alcohol. ROS: 19:38 Constitutional: Negative for fever, chills, and weight loss, Eyes: Negative for injury, sp3 pain, redness, and discharge, ENT: Negative for injury, pain, and discharge, Neck: Negative for injury, pain, and swelling, Cardiovascular: Negative for chest pain, palpitations, and edema, Respiratory: Negative for shortness of breath, cough, wheezing, and pleuritic chest pain, Abdomen/GI: Negative for abdominal pain, nausea, vomiting, diarrhea, and constipation, Skin: Negative for injury, rash, and discoloration, Neuro: Negative for headache, weakness, numbness, tingling, and seizure, Psych: Negative for depression, anxiety, suicide ideation, homicidal ideation, and hallucinations, Allergy/Immunology: Negative for hives, rash, and allergies, Endocrine: Negative for neck swelling, polydipsia, polyuria, polyphagia, and marked weight changes. Exam: 19:38 Constitutional: This is a well developed, well nourished patient who is awake, alert, sp3 and in no acute distress. Head/Face: Normocephalic, atraumatic. ENT: Nares patent. No nasal discharge, no septal abnormalities noted. External auditory canals are clear. Oropharynx with no redness, swelling, or masses, exudates, or evidence of obstruction, uvula midline. Mucous membranes moist. Neck: Trachea midline, no thyromegaly or masses palpated, and no cervical lymphadenopathy. Supple, full range of motion without nuchal rigidity, or vertebral point tenderness. No Meningismus. Cardiovascular: Regular rate and rhythm with a normal S1 and S2. No gallops, murmurs, or rubs. Normal PMI, no JVD. No pulse deficits. Respiratory: Lungs have equal breath sounds bilaterally, clear to auscultation and percussion. No rales, rhonchi or wheezes noted. No increased work of breathing, no retractions or nasal flaring. Abdomen/GI: Soft, non-tender, with normal bowel sounds. No distension or tympany. No guarding or rebound. No evidence of tenderness throughout. Back: No spinal tenderness. No costovertebral tenderness. Full range of motion. Skin: Warm, dry with normal turgor. Normal color with no rashes, no lesions, and no evidence of cellulitis. MS/ Extremity: Pulses equal, no cyanosis. Neurovascular intact. Full, normal range of motion. Neuro: Awake and alert, GCS 15, oriented to person, place, time, and situation. Cranial nerves II-XII grossly intact. Motor strength 5/5 in all extremities. Sensory grossly intact. Cerebellar exam normal. Normal gait. 19:38 Chest/axilla: Tenderness to palpation on lower ribs without crepitus. Lung sounds equal bilaterally. Cardiovascular exam is normal.. Vital Signs: 18:26 BP 134 / 88; Pulse 104; Resp 18; Temp 97.6(TE); Pulse Ox 100% on R/A; Weight 99.79 kg; ld1 Height 5 ft. 3 in. (160.02 cm); Pain 7/10; 18:26 Body Mass Index 38.97 (99.79 kg, 160.02 cm) ld1 MDM: 18:36 Patient medically screened. ms3 19:39 Data reviewed: vital signs, nurses notes. ED course: 22-year-old female with left-sided sp3 rib pain secondary to traumatic event. Differential diagnosis includes rib contusion, rib fracture, pneumothorax, pleurisy, pulmonary contusion, among others. Likely diagnosis is rib contusion. X-ray demonstrates no abnormality. Will discharge patient home on OTC Tylenol and prescription for diclofenac p.o. as needed. Patient to follow-up with primary care physician. Images were also reviewed by me as well as radiology.. 11/07 18:40 Order name: Chest Pa And Lat (2 Views) XRAY; Complete Time: 19:09 ms3 Administered Medications: No medications were administered Disposition Summary: 11/07/22 19:41 Discharge Ordered Location: Home sp3 Condition: Stable sp3 Diagnosis - Rib contusion left sp3 Followup: sp3 - With: Private Physician - When: Upon discharge from the Emergency Department - Reason: Continuance of care Discharge Instructions: - Discharge Summary Sheet sp3 - Rib Contusion sp3 Forms: - Medication Reconciliation Form sp3 - Thank You Letter sp3 - Antibiotic Education sp3 - Prescription Opioid Use sp3 Prescriptions: - Diclofenac Sodium 75 mg Oral Tablet Sustained Release - take 1 tablet by ORAL route 2 times per day; 30 tablet; Refills: 0, Product sp3 Selection Permitted Signatures: Dispatcher [employer] EDGeorge Fuentes DO DO ms3 Nida Padilla RN RN ld1 Estiven Cid MD MD sp3
--- NOTE | 2022-11-07 19:41 | ER ---
Nurse's Notes [facility] Name: Linda Castillo Age: 22 yrs Sex: Female : 2000 Arrival Date: 11/07/2022 Time: 18:14 Bed DX3 Private MD: Diagnosis: Rib contusion left Presentation: 11/07 18:26 Chief complaint: Patient states: Knee to left rib cage this weekend. Pain to left rib ld1 cage. Coronavirus screen: At this time, the client does not indicate any symptoms associated with coronavirus-19. Ebola Screen: No symptoms or risks identified at this time. Initial Sepsis Screen: Does the patient meet any 2 criteria? No. Patient's initial sepsis screen is negative. Does the patient have a suspected source of infection? No. Patient's initial sepsis screen is negative. Risk Assessment: Do you want to hurt yourself or someone else? Patient reports no desire to harm self or others. Onset of symptoms was November 07, 2022. 18:26 Method Of Arrival: Ambulatory ld1 18:26 Acuity: IMANI 4 ld1 Triage Assessment: 18:26 General: Appears in no apparent distress. comfortable, Behavior is calm, cooperative, ld1 appropriate for age. Pain: Complains of pain in right lateral posterior chest Pain does not radiate. Pain currently is 7 out of 10 on a pain scale. Quality of pain is described as throbbing. EENT: No signs and/or symptoms were reported regarding the EENT system. Neuro: Level of Consciousness is awake, alert, obeys commands, Oriented to person, place, time, situation. Cardiovascular: Capillary refill < 3 seconds Patient's skin is warm and dry. Respiratory: Airway is patent Respiratory effort is even, unlabored. Musculoskeletal: Reports pain in chest. Historical: - Allergies: 18:26 No Known Allergies; ld1 - PMHx: 18:26 None; ld1 - PSHx: 18:26 Cholecystectomy; ld1 - Immunization history:: Adult Immunizations up to date, Client reports receiving the 2nd dose of the Covid vaccine. - Social history:: Smoking status: Patient denies any tobacco usage or history of. Patient/guardian denies using alcohol. Screenin:34 [facility] ED Fall Risk Assessment (Adult) History of falling in the last 3 months, kd3 including since admission No falls in past 3 months (0 pts) Confusion or Disorientation No (0 pts) Intoxicated or Sedated No (0 pts) Impaired Gait No (0 pts) Mobility Assist Device Used No (0 pt) Altered Elimination No (0 pt) Score/Fall Risk Level 0 - 2 = Low Risk Maintained a safe environment. Abuse screen: Denies threats or abuse. Denies injuries from another. Nutritional screening: No deficits noted. Tuberculosis screening: No symptoms or risk factors identified. Assessment: 19:45 General: Appears in no apparent distress. Behavior is calm, cooperative. Neuro: Level kd3 of Consciousness is awake, alert, obeys commands, Oriented to person, place, time, situation. Respiratory: Airway is patent Trachea midline Respiratory effort is even, unlabored, Respiratory pattern is regular, symmetrical. Vital Signs: 18:26 BP 134 / 88; Pulse 104; Resp 18; Temp 97.6(TE); Pulse Ox 100% on R/A; Weight 99.79 kg; ld1 Height 5 ft. 3 in. (160.02 cm); Pain 7/10; 18:26 Body Mass Index 38.97 (99.79 kg, 160.02 cm) ld1 ED Course: 18:14 Patient arrived in ED. am2 18:26 Arm band placed on right wrist. ld1 18:27 Triage completed. ld1 18:30 George Bruner DO is Attending Physician. ms3 18:54 Chest Pa And Lat (2 Views) XRAY In Process Unspecified. EDMS 19:08 Attending Physician role handed off by George Bruner DO sp3 19:08 Estiven Cid MD is Attending Physician. sp3 19:34 No provider procedures requiring assistance completed. Patient did not have IV access kd3 during this emergency room visit. 19:35 Patient has correct armband on for positive identification. kd3 19:45 Nan Rodriguez, LIA is Primary Nurse. kd3 Administered Medications: No medications were administered Medication: 19:35 VIS not applicable for this client. kd3 Outcome: 19:37 Condition: stable kd3 19:37 Discharge instructions given to patient, Instructed on discharge instructions, follow up and referral plans. Demonstrated understanding of instructions, follow-up care. 19:41 Discharge ordered by . sp3 19:45 Discharged to home ambulatory. kd3 19:46 Patient left the ED. kd3 Signatures: Dispatcher [employer] EDMS Aimee Mccormack am2 George Bruner DO DO ms3 Nida Padilla, LIA RN ld1 Estiven Cid MD MD sp3 Nan Rodriguez RN RN kd3
[2022-11-07 20:16] VITALS: BP 134/88; TEMP 97.6; O2SAT 100
== END 2022-11-07 19:46 | disposition home or self-care (01) ==
LOC: ER 18:13
DX: S20.212A Contusion of left front wall of thorax, initial encounter (principal)
CPT/HCPCS: 71046; 99283

== ENCOUNTER 2023-12-16 19:27 | Emergency (ER) | payer SELFPAY ==
--- OUTSIDE RECORDS SUMMARY | 2023-12-16 19:31 | XMS REPORT | Continuity of Care Document ---
Author Name Unknown Address [address] [facility] [address]. [address] [place] [address] [facility] thconnect Address [address] [facility]. [address] [place] [address] Care Team Providers Care Director Of Community Education Name Role Phone Pcp, Patient Does Not Have A Primary Care Physic sandra HOSEA CID Attending Clinician Unavailable Karin Dennis CNM Attending Clinician [phone] KARIN DENNIS Attending Clinician Unavaila Bridgette Tompkins Attending Clinician + NIC WRIGHT Attending Clinician Unavailable Nic Hoyos S Attending Clinician [phone] BRIDGETTE KIM Attending Clinician Unavail able PERRY QUIÑONEZ Attending Clinician Unavailab JAMISON Mccracken Attending Clinician Unavailable Jamison Berkowitz Attending Clinician [phone] Doctor Unassigned, [place] Attending Clinician U Perry Boateng Attending Clinician + [phone] OPAL CEE Attending Clinician UnavailOpal Ag Attending Clinician [phone] SHANE MAGUIRE Attending Clinician Unavailable Abbey Gould Attending Clinician [phone] Shane Maguire MD Attending Clinician [phone] Trimester, [facility] Res-1st Attending Clinician Unavailable Hosea Cid MD Attending Clinician [phone] Doug Blanchard MD Attending Clinician + [phone] DOUG BLANCHARD Attending Clinician Unavailable Lab, [facility] Attending Clinician Unavailable KOVACEV_T Attending Clinician Unavailable ALMA WHITMAN Attending Clinician Unavailable Alma Whitman MD Attending Clinician + [phone] Felice Herbert MD Attending Clinician + [phone] Marvin Bradford MD Attending Clinician +[phone] Dale Sherman Attending Clinician + [phone] Alejandro Amos DO Attending Clinician [phone] Nash Jaimes Attending Clinician [phone] Visit, [facility] Nurse Attending Clinician Unava Alton Garcia Attending Clinician +[phone] HOSEA CID Admitting Clinician Unavailable SHANE MAGUIRE Admitting Clinician Unavailable Shane Maguire MD Admitting Clinician [phone] JAMISON LARA Admitting Clinician Unavailable ANNIE_T Admitting Clinician Unavailable Marvin Bradford MD Admitting Clinician [phone] Payers Payer Name Policy Type Policy Number Effective Date Expirati on Date Source [place] [id number] 2021 00:00:00 FORMERLY [facility] [id number] 2021 00:00:00 [place] [facility] [place] (MEDICAID) [id number] Problems Condition Name Condition Details Condition Category Status Onset Date Resolution Date Last Treatment Date Treating Clinician Comments Source Anxiety and depression Anxiety and depression Disease Active 03-03 00:00: 00 [facility] Supervisio n of high-risk Supervisio n of high-risk Disease Active 12-09 00:00: 00 [facility] History of miscarriag e History of miscarriag e Disease Active 2022-0 3-31 00:00: 00 [facility] Obesity in Obesity in Disease Active 3-31 00:00: 00 [facility] Ovarian torsion Ovarian torsion Disease Active 12-09 00:00: 00 Overview: Formattin g of this note might be different from the original. Reports hist lolly in 2019 [facility] Elevated blood pressure reading without diagnosis of hypertensi on Elevated blood pressure reading without diagnosis of hypertensi on Disease Active 331 00:00: 00 [facility] Depression during Depression during Disease Active 3-14 00:00: 00 [facility] Vaginal bleeding affecting early Vaginal bleeding affecting early Disease Active 2020-09 0- 00:00: 00 [facility] Obesity (BMI 30-39.9) Obesity (BMI 30-39.9) Disease Active 6-22 00:00: 00 [facility] Pain pelvic Pain pelvic Disease Active 1-30 00:00: 00 [facility] Allergies, Adverse Reactions, Alerts Allergy Name Allergy Type Status Severity Reaction(s) Onset Date Inactive Date Treating Clinician Comments Source NO KNOWN ALLERGIE S Drug Class Active [facility] Social History Social Habit Start Date Stop Date Quantity Comments Source ASSERTION 2021-11-18 00:00:00 [facility] Gender identity [facility] Sexual orientation U [facility] History SDOH Alcohol Frequency [facility] History SDOH Alcohol Std Drinks [facility] History SDOH Alcohol Binge [facility] History of Social function 2023-02-28 00:00:00 2023-02-28 00:00:00 [facility] Exposure to SARS-CoV-2 (event) 2023-02-17 00:00:00 2023-02-27 19:51:00 Not sure [facility] Alcohol Comment 2021-06-18 00:00:00 2021-06-18 00:00:00 stopped 06/11/2021 [facility] Alcohol intake 2020-09-22 00:00:00 2020-09-22 00:00:00 Ex-drinker (finding) [facility] Tobacco use and exposure 2020-07-21 00:00:00 2020-07-21 00:00:00 Smokeless tobacco non-user [facility] Cigarettes smoked current (pack per day) - Reported 2020-07-21 00:00:00 2020-07-21 00:00:00 [facility] Cigarette pack-years 2020-07-21 00:00:00 2020-07-21 00:00:00 [facility] History of tobacco use 2018-02-16 00:00:00 2020-02-17 00:00:00 Cigarette Smoker [facility] Sex Assigned At 2000 00:00:00 2000 00:00:00 [facility] Smoking Status Start Date Stop Date Source Light Tobacco Smoker [facility] Ex-smoker 2020-07-21 00:00:00 2020-07-21 [facility]00[facility] Medications Ordered Medication Name Filled Medication Name Start Date Stop Date Current Medication? Ordering Clinician Indication Dosage Frequency Signature (SIG) Comments Components Source metroNIDAZO LE 500 mg tablet 03-23 00:00: 00 Yes [id number] 500mg Take 1 tablet by mouth in the morning and 1 tablet in the evening. [facility] metroNIDAZO LE 500 mg tablet 03-02 00:00: 00 03-10 04:59 :00 No [id number] 500mg Take 1 tablet by mouth in the morning and 1 tablet in the evening. Do all this for 7 days. [facility] ondansetron 4 mg disintegrat ing tablet 02-14 00:00: 00 02-28 00:00 :00 No [id number] 4mg Take 1 tablet by mouth every 8 (eight) hours as needed for Nausea and Vomiting (N/V). [facility] valACYclovi r 1 gram tablet 02-14 00:00: 00 02-22 04:59 :00 No [id number] 1g Take 1 tablet by mouth 3 (three) times daily for 7 days. [facility] multivitami n ( VITAMIN) tablet 3-31 00:00: 00 02-28 00:00 :00 No [id number] 1{tbl} Take 1 tablet by mouth daily. [facility] multivitami n ( VITAMIN) tablet 12-09 00:00: 00 02-28 00:00 :00 No [id number] 1{tbl} Take 1 tablet by mouth daily. [facility] sucralfate 1 gram tablet 09-22 00:00: 00 03-03 00:00 :00 No [id number] 1g Take 1 tablet by mouth before meals and at bedtime. [facility] ondansetron ondansetron No on dansetro n [facility] sucralfate sucralfate No sucralfate [facility] Tylenol w Codeine 300-60 mg tablet Take 1 tablet every 6 hours by oral route. Tylenol w Codeine 300-60 mg tablet Take 1 tablet every 6 hours by oral route. No 1 Q6H Tylenol w Codeine 300-60 mg tablet Take 1 tablet every 6 hours by oral route. [facility] ondansetron ondansetron No on dansetro n [facility] sucralfate sucralfate No sucralfate [facility] Tylenol w Codeine 300-60 mg tablet Take 1 tablet every 6 hours by oral route. Tylenol w Codeine 300-60 mg tablet Take 1 tablet every 6 hours by oral route. No 1 Q6H Tylenol w Codeine 300-60 mg tablet Take 1 tablet every 6 hours by oral route. [facility] Immunizations Ordered Immunization Name Filled Immunization Name Date Status Comments Source HPV9 2023-02-28 00:00:00 Completed [facility] HPV9 2023-02-28 00:00:00 Completed [facility] HPV9 2023-02-28 00:00:00 Completed [facility] HPV9 2023-02-28 00:00:00 Completed [facility] Influenza Virus Vaccine Quad IM, Preserv and ABX Free 6 MO-64 YRS 2021-12-09 00:00:00 Completed [facility] Influenza Virus Vaccine Quad IM, Preserv and ABX Free 6 MO-64 YRS 2021-12-09 00:00:00 Completed [facility] Influenza Virus Vaccine Quad IM, Preserv and ABX Free 6 MO-64 YRS 2021-12-09 00:00:00 Completed [facility] Influenza Virus Vaccine Quad IM, Preserv and ABX Free 6 MO-64 YRS 2021-12-09 00:00:00 Completed [facility] Influenza Virus Vaccine Quad IM, Preserv and ABX Free 6 MO-64 YRS 2021-12-09 00:00:00 Completed [facility] Influenza Virus Vaccine Quad IM, Preserv and ABX Free 6 MO-64 YRS 2021-12-09 00:00:00 Completed [facility] Influenza Virus Vaccine Quad IM, Preserv and ABX Free 6 MO-64 YRS 2021-12-09 00:00:00 Completed [facility] Influenza Virus Vaccine Quad IM, Preserv and ABX Free 6 MO-64 YRS 2021-12-09 00:00:00 Completed [facility] Influenza Virus Vaccine Quad IM, Preserv and ABX Free 6 MO-64 YRS 2021-12-09 00:00:00 Completed [facility] Influenza Virus Vaccine Quad IM, Preserv and ABX Free 6 MO-64 YRS 2021-06-18 00:00:00 Completed [facility] Influenza Virus Vaccine Quad IM, Preserv and ABX Free 6 MO-64 YRS 2021-06-18 00:00:00 Completed [facility] Influenza Virus Vaccine Quad IM, Preserv and ABX Free 6 MO-64 YRS 2021-06-18 00:00:00 Completed [facility] Influenza Virus Vaccine Quad IM, Preserv and ABX Free 6 MO-64 YRS 2021-06-18 00:00:00 Completed [facility] Influenza Virus Vaccine Quad IM, Preserv and ABX Free 6 MO-64 YRS 2021-06-18 00:00:00 Completed [facility] Influenza Virus Vaccine Quad IM, Preserv and ABX Free 6 MO-64 YRS 2021-06-18 00:00:00 Completed [facility] Influenza Virus Vaccine Quad IM, Preserv and ABX Free 6 MO-64 YRS 2021-06-18 00:00:00 Completed [facility] Influenza Virus Vaccine Quad IM, Preserv and ABX Free 6 MO-64 YRS 2021-06-18 00:00:00 Completed [facility] Influenza Virus Vaccine Quad IM, Preserv and ABX Free 6 MO-64 YRS 2021-06-18 00:00:00 Completed [facility] Influenza Virus Vaccine Quad .5 mL IM 6+ MO 2020-07-21 00:00:00 Completed [facility] Influenza Virus Vaccine Quad .5 mL IM 6+ MO 2020-07-21 00:00:00 Completed [facility] Influenza Virus Vaccine Quad .5 mL IM 6+ MO 2020-07-21 00:00:00 Completed [facility] Influenza Virus Vaccine Quad .5 mL IM 6+ MO 2020-07-21 00:00:00 Completed [facility] Influenza Virus Vaccine Quad .5 mL IM 6+ MO 2020-07-21 00:00:00 Completed [facility] Influenza Virus Vaccine Quad .5 mL IM 6+ MO 2020-07-21 00:00:00 Completed [facility] Influenza Virus Vaccine Quad .5 mL IM 6+ MO 2020-07-21 00:00:00 Completed [facility] Influenza Virus Vaccine Quad .5 mL IM 6+ MO 2020-07-21 00:00:00 Completed [facility] Influenza Virus Vaccine Quad .5 mL IM 6+ MO 2020-07-21 00:00:00 Completed [facility] HPV 2011-06-27 00:00:00 Completed [facility] Influenza Virus Vaccine - Whole 2011-06-27 00:00:00 Completed [facility] HPV 2011-06-27 00:00:00 Completed [facility] Influenza Virus Vaccine - Whole 2011-06-27 00:00:00 Completed [facility] HPV 2011-06-27 00:00:00 Completed [facility] Influenza Virus Vaccine - Whole 2011-06-27 00:00:00 Completed [facility] HPV 2011-06-27 00:00:00 Completed [facility] Influenza Virus Vaccine - Whole 2011-06-27 00:00:00 Completed [facility] Influenza Virus Vaccine Quad .5 mL IM 6+ MO (FLUZONE/FLULAVAL/F LUARIX) Unknown Completed [facility] Influenza Virus Vaccine Quad IM, Preserv and ABX Free 6 MO-64 YRS (FLUCELVAX) Unknown Completed [facility] Influenza Virus Vaccine Quad IM, Preserv and ABX Free 6 MO-64 YRS (FLUCELVAX) Unknown Completed [facility] HPV9 Unknown Completed [facility] Influenza Virus Vaccine Quad .5 mL IM 6+ MO (FLUZONE/FLULAVAL/F LUARIX) Unknown Completed [facility] Influenza Virus Vaccine Quad IM, Preserv and ABX Free 6 MO-64 YRS (FLUCELVAX) Unknown Completed [facility] Influenza Virus Vaccine Quad IM, Preserv and ABX Free 6 MO-64 YRS (FLUCELVAX) Unknown Completed [facility] Influenza Virus Vaccine Quad .5 mL IM 6+ MO (FLUZONE/FLULAVAL/F LUARIX) Unknown Completed [facility] Influenza Virus Vaccine Quad IM, Preserv and ABX Free 6 MO-64 YRS (FLUCELVAX) Unknown Completed [facility] Influenza Virus Vaccine Quad IM, Preserv and ABX Free 6 MO-64 YRS (FLUCELVAX) Unknown Completed [facility] Influenza Virus Vaccine Quad .5 mL IM 6+ MO (FLUZONE/FLULAVAL/F LUARIX) Unknown Completed [facility] Influenza Virus Vaccine Quad IM, Preserv and ABX Free 6 MO-64 YRS (FLUCELVAX) Unknown Completed [facility] Influenza Virus Vaccine Quad .5 mL IM 6+ MO (FLUZONE/FLULAVAL/F LUARIX) Unknown Completed [facility] Influenza Virus Vaccine Quad .5 mL IM 6+ MO (FLUZONE/FLULAVAL/F LUARIX) Unknown Completed [facility] Vital Signs Vital Name Observation Time Observation Value Comments S ource Systolic blood pressure 2023-02-28 20:19:00 126 mm[Hg] [facility] Diastolic blood pressure 2023-02-28 20:19:00 80 mm[Hg] [facility] Heart rate 2023-02-28 20:19:00 72 /min Unive [facility] Body temperature 2023-02-28 20:19:00 36.28 Susan [facility] Respiratory rate 2023-02-28 20:19:00 18 /min [facility] Body height 2023-02-28 20:19:00 160 cm Univ [facility] Body weight 2023-02-28 20:19:00 89.982 kg [facility] BMI 2023-02-28 20:19:00 35.14 kg/m2 [facility] Systolic blood pressure 2022-02-14 14:15:00 127 mm[Hg] [facility] Diastolic blood pressure 2022-02-14 14:15:00 76 mm[Hg] [facility] Heart rate 2022-02-14 14:15:00 83 /min Unive [facility] Body temperature 2022-02-14 14:15:00 37.17 Susan [facility] Respiratory rate 2022-02-14 14:15:00 14 /min [facility] Body height 2022-02-14 14:15:00 160 cm [facility] Body weight 2022-02-14 14:15:00 96.163 kg [facility] BMI 2022-02-14 14:15:00 37.55 kg/m2 [facility] Oxygen saturation in Arterial blood by Pulse oximetry 2022-02-14 14:15:00 99 /min [facility] Systolic blood pressure 2021-12-11 04:28:00 130 mm[Hg] [facility] Diastolic blood pressure 2021-12-11 04:28:00 80 mm[Hg] [facility] Heart rate 2021-12-11 04:28:00 84 /min Un[facility] Body temperature 2021-12-11 04:28:00 37.11 Susan [facility] Respiratory rate 2021-12-11 04:28:00 18 /min [facility] Body height 2021-12-11 04:28:00 160 cm [facility] Body weight 2021-12-11 04:28:00 93.895 kg [facility] BMI 2021-12-11 04:28:00 36.67 kg/m2 [facility] Oxygen saturation in Arterial blood by Pulse oximetry 2021-12-11 04:28:00 100 /min [facility] BP Diastolic 2021-01-21 00:00:00 65 mm[Hg] [facility] Height 2021-01-21 00:00:00 63 [in_i] [facility] BMI (Body Mass Index) 2021-01-21 00:00:00 39.7 kg/m2 [facility] BP Systolic 2021-01-21 00:00:00 129 mm[Hg] [facility] Body Weight 2021-01-21 00:00:00 3584 [oz_av] [facility] BP Diastolic 2020-11-24 00:00:00 70 mm[Hg] [facility] Height 2020-11-24 00:00:00 63 [in_i] [facility] BMI (Body Mass Index) 2020-11-24 00:00:00 37.4 kg/m2 [facility] BP Systolic 2020-11-24 00:00:00 112 mm[Hg] [facility] Body Weight 2020-11-24 00:00:00 3376 [oz_av] [facility] Procedures Procedure Date / Time Performed Performing Clinician Source GC & CHLAMYDIA AMPLIFIED ASSAY 2023-02-28 21:23:00 Karin Dennis [facility] POCT TEST 2023-02-28 21:23:00 Renea Dennis [facility] GALV ONLY - VAGINAL PATHOGENS BY NUCLEIC ACID TESTING 2023-02-28 21:23:00 Karin Dennis [facility] GARDASIL 9 (HPV 9V) VACCINE 2023-02-28 20:59:58 Karin Dennis [facility] CONSENT/REFUSAL FOR DIAGNOSIS AND TREATMENT 2022-02-14 14:09:51 Doctor Unassigned, [place] [facility] POCT TEST 2021-12-11 04:52:00 Korina Lara [facility] BASIC METABOLIC PANEL (NA, K, CL, CO2, GLUCOSE, BUN, CREATININE, CA) 2021-12-11 04:49:00 Jamison Lara [facility] TOTAL BETA HCG ASSAY 2021-12-11 04:49:00 Toro Lara [facility] CBC WITH DIFF 2021-12-11 04:49:00 Jamison Lara [facility] URINALYSIS 2021-12-11 04:49:00 Jamison Lara [facility] NM, hepatobiliary scan, w/ CCK 2020-11-24 00:00:00 [facility] Encounters Start Date/Time End Date/Time Encounter Type Admission Type Attending Clinicians Care Facility Care Department Encounter ID Source 2021-07-13 09:37:08 Emergency [facility] [id number] [facility] 2021-07-12 02:48:05 Emergency [facility] [id number] [facility] 2021-07-10 16:43:23 Emergency [facility] [id number] [facility] 2021-07-08 12:13:41 Outpatient HOSEA MCLAUGHLIN [facility] [id number] [facility] 2023-03-23 00:00:00 2023-03-23 00:00:00 Case Management Karin Dennis [facility] [id number] [facility] 2023-03-23 00:00:00 2023-03-23 00:00:00 Patient Secure Msg Karin Dennis [facility] [id number] [facility] 2023-03-20 00:00:00 2023-03-20 00:00:00 Outpatient R KARIN DENNIS [facility] [id number] [facility] 2023-03-02 08:00:00 2023-03-02 08:00:00 Outpatient R KARIN DENNIS [facility] [id number] [facility] 2023-03-02 00:00:00 2023-03-02 00:00:00 Telephone Karin Dennis [facility] 1..840.114 [id number] [id number] [facility] 2023-02-28 15:15:00 2023-02-28 16:27:01 Outpatient R KARIN DENNIS [facility] [id number] [facility] 2023-02-28 15:15:00 2023-02-28 16:27:01 Office Visit Karin Dennis [facility] 1..840.114 [id number] [id number] [facility] 2023-02-16 00:00:00 2023-02-16 00:00:00 Telephone Bridgette Kim [facility] 1..840.114 [id number] [id number] [facility] 2022-02-14 09:18:00 2022-02-14 10:32:00 Emergency X NIC WRIGHT [facility] ERT [id number] [facility] 2022-02-14 09:18:00 2022-02-14 10:32:00 Emergency Nic Wright S [facility] 1..840.114 [id number] [facility] 2022-01-17 00:00:00 2022-01-17 00:00:00 Telephone Bridgette Kim [facility] [id number] [facility] 2021-12-23 08:00:00 2021-12-23 08:00:00 Outpatient R BRIDGETTE KIM [facility] [id number] [facility] 2021-12-23 08:00:00 2021-12-23 08:00:00 Outpatient R BRIDGETTE KIM [facility] [id number] [facility] 2021-12-13 13:15:00 2021-12-13 13:15:00 Outpatient R PERRY QUIÑONEZ [facility] [id number] [facility] 2021-12-13 10:30:00 2021-12-13 10:30:00 Outpatient R BRIDGETTE KIM [facility] [id number] [facility] 2021-12-10 23:34:00 2021-12-11 01:12:00 Emergency X JAMISON LARA [facility] ERT [id number] [facility] 2021-12-10 23:34:00 2021-12-11 01:12:00 Emergency Jamison Lara [facility] [id number] [id number] [facility] 2021-12-10 00:00:00 2021-12-10 00:00:00 Telephone Bridgette Kim [facility] [id number] [id number] [id number] [id number] [facility] 2021-12-10 00:00:00 2021-12-10 00:00:00 Patient Secure Msg Bridgette Kim [facility] [id number] [id number] [id number] [facility] 2021-12-10 00:00:00 2021-12-10 00:00:00 Patient Secure Msg KimBridgette [facility] [id number] [id number] [facility] 2021-12-09 14:15:00 2021-12-09 14:58:41 Initial Visit Rudyrenee Bridgette Roberto [facility] [id number] [id number] [id number] [facility] 2021-12-09 14:15:00 2021-12-09 14:58:41 Outpatient BRIDGETTE RAMIREZ [facility] [id number] [facility] 2021-12-09 00:00:00 2021-12-09 00:00:00 Orders Only Doctor Unassigned, [place] [facility] 1.2.840.114 350.1.13.10 4.2.7.2.686 [id number] [facility] 2021-11-22 15:00:00 2021-11-22 16:04:57 Office Visit Perry Quiñonez [facility] THEATRE PROFESSOR [facility] 1.2.840.114 350.1.13.10 4.2.7.2.686 [id number] [facility] 2021-11-22 15:00:00 2021-11-22 16:04:57 Outpatient PERRY OIVEDO [facility] [id number] [facility] 2021-11-22 15:00:00 2021-11-22 15:00:00 Outpatient PERRY OVIEDO [facility] [id number] [facility] 2021-08-18 00:00:00 2021-08-18 00:00:00 Orders Only Doctor Unassigned, [place] [facility] 1.2.840.114 350.1.13.10 4.2.7.2.686 [id number] [facility] 2021-07-27 09:45:00 2021-07-27 09:45:00 Outpatient R [facility] [id number] [facility] 2021-07-26 10:30:00 2021-07-26 10:30:00 Outpatient P [facility] [id number] [facility] 2021-07-16 10:45:00 2021-07-16 10:45:00 Outpatient R OPAL CEE [facility] [id number] [facility] 2021-07-16 00:00:00 2021-07-16 00:00:00 Orders Only Doctor Unassigned, [place] [facility] 1..840.114 350.1.13.10 4.2.7.2.686 [id number] [facility] 2021-07-15 15:00:00 2021-07-15 15:00:00 Outpatient OPAL CLEMENTS [facility] [id number] [facility] 2021-07-13 10:30:00 2021-07-13 10:30:00 Outpatient OPAL CLEMENTS [facility] [id number] [facility] 2021-07-12 00:00:00 2021-07-12 00:00:00 Patient Secure Msg Opal Cee [facility] THEATRE PROFESSOR [facility] 1..840.114 350.1.13.10 4.2.7.2.686 [id number] [facility] 2021-07-09 23:34:00 2021-07-10 08:10:00 Outpatient X SHANE MAGUIRE [facility] SERJIO [id number] [facility] 2021-07-09 23:34:00 2021-07-10 08:10:00 Outpatient X SHANE MAGUIRE [facility] [id number] [facility] 2021-07-09 23:34:00 2021-07-10 08:10:00 Emergency CacAbbey hawley Megan [facility] 1..840.114 350.1.13.10 4.2.7.2.686 [id number] [facility] 2021-07-09 00:00:00 2021-07-09 00:00:00 Orders Only Doctor Unassigned, [place] [facility] 1.2.840.114 350.1.13.10 4.2.7.2.686 [id number] [facility] 2021-07-08 10:02:09 2021-07-08 11:41:10 Routine Visit Trimester, [facility] Res-1st Hosea Cid [facility] 1.840.114 350.1.13.10 4.2.7.2.686 [id number] [facility] 2021-07-08 10:00:00 2021-07-08 11:41:10 Outpatient R HOSEA CID [facility] [id number] [facility] 2021-07-08 10:00:00 2021-07-08 11:41:10 Outpatient R HOSEA CID [facility] [id number] [facility] 2021-07-08 10:00:00 2021-07-08 11:41:10 Outpatient R HOSEA CID [facility] [id number] [facility] 2021-07-08 10:00:00 2021-07-08 10:00:00 Outpatient R [facility] [id number] [facility] 2021-07-05 23:45:00 2021-07-06 03:07:00 Emergency Lara, Jamison [facility] 1.2840.114 350.1.13.10 4.2.7.2.686 [id number] [facility] 2021-07-05 23:45:00 2021-07-06 03:07:[address] [facility] ERT [id number] [facility] 2021-07-06 00:00:00 2021-07-06 00:00:00 Telephone Opal Cee [facility] THEATRE PROFESSOR [facility] 1.2.840.114 350.1.13.10 4.2.7.2.686 [id number] [facility] 2021-07-05 00:00:00 2021-07-05 00:00:00 Patient Secure Msg Opal Cee [facility] THEATRE PROFESSOR [facility] 1.2840.114 350.1.13.10 4.2.7.2.686 [id number] [facility] 2021-07-05 00:00:00 2021-07-05 00:00:00 Orders Only Doctor Unassigned, [place] [facility] 1.2.840.114 350.1.13.10 4.2.7.2.686 [id number] [facility] 2021-06-24 10:32:34 2021-06-24 11:49:51 Routine Visit Trimester, [facility] Res-1st Doug Blanchard [facility] 1.0.114 350.1.13.10 4.2.7.2.686 [id number] [facility] 2021-06-24 10:15:00 2021-06-24 11:49:51 Outpatient R DOUG BLANCHARD [facility] [id number] [facility] 2021-06-22 00:00:00 2021-06-22 00:00:00 Telephone Opal Cee [facility] THEATRE PROFESSOR [facility] 1.2.840.114 350.1.13.10 4.2.7.2.686 [id number] [facility] 2021-06-21 13:15:00 2021-06-21 09:57:19 Outpatient R OPAL CEE [facility] [id number] [facility] 2021-06-21 09:37:01 2021-06-21 09:57:19 Radiosonde Operator Visit Lab, [facility] Opal Cee [facility] THEATRE PROFESSOR [facility] 1.2.840.114 350.1.13.10 4.2.7.2.686 [id number] [facility] 2021-06-21 00:00:00 2021-06-21 00:00:00 Telephone Opal Cee Arcadio [facility] THEATRE PROFESSOR [facility] 1.2.840.114 350.1.13.10 4.2.7.2.686 [id number] [facility] 2021-06-18 08:53:58 2021-06-18 09:54:55 Initial Visit Opal Cee [facility] THEATRE PROFESSOR [facility] 1.2.840.114 350.1.13.10 4.2.7.2.686 [id number] [facility] 2021-06-18 08:53:58 2021-06-18 09:54:55 Initial Visit Opal Cee [facility] THEATRE PROFESSOR [facility] 1.2.840.114 350.1.13.10 4.2.7.2.686 [id number] [facility] 2021-06-18 08:30:00 2021-06-18 08:30:00 Outpatient R [facility] [id number] [facility] 2021-06-18 04:25:00 2021-06-18 04:25:00 Outpatient KOVACEV_T [facility] [address] [facility] 2021-06-18 00:00:00 2021-06-18 00:00:00 Orders Only Doctor Unassigned, [place] [facility] 1.20.114 350.1.13.10 4.2.7.2.686 [id number] [facility] 2021-04-08 08:30:00 2021-04-08 08:30:00 Outpatient R ALMA WHITMAN [facility] [id number] [facility] 2021-03-11 14:28:29 2021-03-11 14:58:53 [facility] 1.84.114 350.1.13.10 4.2.7.2.686 [id number] [facility] 2021-03-11 14:30:00 2021-03-11 14:30:00 Outpatient R ALMA WHITMAN [facility] [id number] [facility] 2021-03-11 14:30:00 2021-03-11 14:30:00 Outpatient R ALMA WHITMAN [facility] [id number] [facility] 2021-03-08 00:00:00 2021-03-08 00:00:00 Patient Secure Msg Doctor Unassigned, [place] [facility] 1..114 350.1.13.10 4.2.7.2.686 [id number] [facility] 2021-03-02 08:44:00 2021-03-06 16:01:00 Emergency Felice Herbert Yaman [facility] 1.84.114 350.1.13.10 4.2.7.2.686 [id number] [facility] 2021-03-05 12:30:00 2021-03-05 15:40:00 Surgery Alma Whitman [facility] [place] 1.2.840.114 350.1.13.10 4.2.7.2.686 [id number] [facility] 2021-03-03 12:00:00 2021-03-03 12:39:00 Surgery Alma Whitman [facility] 1.2.840.114 350.1.13.10 4.2.7.2.686 [id number] [facility] 2021-02-27 03:20:00 2021-02-27 03:20:00 Outpatient KOVACEV_T [id number] 2021-01-28 06:24:00 2021-01-28 06:24:00 Outpatient KOVACEV_T [facility] [id number] [facility] 2021-01-24 01:05:00 2021-01-24 01:05:00 Outpatient KOVACEV_T [facility] [id number] [facility] 2021-01-21 10:23:00 2021-01-21 10:23:00 Outpatient KOVACEV_T [facility] [id number] [facility] 2021-01-21 00:00:00 2021-01-21 00:00:00 Outpatient Dale Sherman [facility] [id number] 2021-01-21 00:00:00 2021-01-21 00:00:00 Dale Sehrman MD: [place] [address] , Ph. [facility] - [facility] Specialty [facility] [id number] [facility] 2020-12-20 01:03:00 2020-12-20 01:03:00 Outpatient KOVACEV_T [facility] [id number] [facility] 2020-12-07 05:24:00 2020-12-07 05:24:00 Outpatient KOVACEV_T [facility] [id number] [facility] 2020-12-07 05:21:00 2020-12-07 05:21:00 Outpatient KOVACEV_T [facility] [id number] [facility] 2020-12-04 04:34:00 2020-12-04 04:34:00 Outpatient KOVACEV_T [facility] [id number] [facility] 2020-12-01 00:00:00 2020-12-01 00:00:00 Dale Sherman MD: [place] [address] , Ph. [facility] - [facility] SURGERY [id number] [facility] 2020-12-01 00:00:00 2020-12-01 00:00:00 Patient Outreach Alejandro Amos [facility] 1.2.840.114 350.1.13.10 4.2.7.2.686 [id number] [facility] 2020-12-01 00:00:00 2020-12-01 00:00:00 Outpatient Dale Sherman [facility] [id number] 2020-11-24 10:25:00 2020-11-24 10:25:00 Outpatient KOVACEV_T [facility] [id number] [facility] 2020-11-24 09:46:00 2020-11-24 09:46:00 Outpatient KOVACEV_T [facility] [id number] [facility] 2020-11-24 00:00:00 2020-11-24 00:00:00 Outpatient Dale Sherman [facility] [id number] 2020-11-24 00:00:00 2020-11-24 00:00:00 Dale Sherman MD: Jaylen Moncada , [place] [address] , Ph. [facility] [id number] [facility] 2020-11-19 05:44:00 2020-11-19 05:44:00 Outpatient KOVACEV_T [facility] 1 [facility] 2020-11-12 09:36:00 2020-11-12 09:36:00 Outpatient KOVACEV_T [facility] [id number] [facility] 2020-10-28 10:30:00 2020-10-28 10:30:00 Outpatient R [facility] [id number] [facility] 2020-10-26 08:15:00 2020-10-26 08:15:00 Outpatient R BRIDGETTE KIM [facility] [id number] [facility] 2020-10-19 00:00:00 2020-10-19 00:00:00 Patient Secure Msg Doctor Unassigned, [place] [facility] THEATRE PROFESSOR [facility] .840.114 350.1.13.10 4.2.7.2.686 [id number] [facility] 2020-09-22 10:18:00 2020-09-22 12:17:00 Emergency Nash uHggins [facility] .840.114 350.1.13.10 4.2.7.2.686 [id number] [facility] 2020-09-22 00:00:00 2020-09-22 00:00:00 Orders Only Doctor Unassigned, [place] [facility] 1.2.840.114 350.1.13.10 4.2.7.2.686 [id number] [facility] 2020-07-28 08:00:31 2020-07-28 08:24:28 Nurse Visit Visit, [facility] Nurse Perry Quiñonez [facility] THEATRE PROFESSOR [facility] 1.284.114 350.1.13.10 4.2.7.2.686 [id number] [facility] 2020-07-28 08:00:00 2020-07-28 08:00:00 Outpatient R PERRY QUIÑONEZ [facility] [id number] [facility] 2020-07-24 00:00:00 2020-07-24 00:00:00 Telephone Perry Quiñonez [facility] THEATRE PROFESSOR [facility] 1.284.114 350.1.13.10 4.2.7.2.686 [id number] [facility] 2020-07-23 00:00:00 2020-07-23 00:00:00 Telephone Perry Quiñonez [facility] THEATRE PROFESSOR [facility] 1.284.114 350.1.13.10 4.2.7.2.686 [id number] [facility] 2020-07-21 14:10:34 2020-07-21 15:39:48 Office Visit Perry Quiñonez [facility] THEATRE PROFESSOR [facility] 1.2.840.114 350.1.13.10 4.2.7.2.686 [id number] [facility] 2020-07-21 14:30:00 2020-07-21 14:30:00 Outpatient PERRY OVIEDO [facility] [id number] [facility] 2020-07-21 00:00:00 2020-07-21 00:00:00 Orders Only Doctor Unassigned, [place] [facility] 1.2.840.114 350.1.13.10 4.2.7.2.686 [id number] [facility] 2019-05-04 16:52:41 2019-05-04 19:20:00 Emergency Calvin Alton Gino [facility] 1.2.840.114 350.1.13.10 4.2.7.2.686 [id number] [facility] 2019-05-04 00:00:00 2019-05-04 00:00:00 Orders Only Doctor Unassigned, [place] [facility] 1.2.840.114 350.1.13.10 4.2.7.2.686 [id number] [facility] Results Test Description Test Time Test Comments Results Result Co mments Source [id number] 21:23:00* Test Item Value Reference Range Interpretation Comme nts POCT PREG (test code = 1605) Negative On board controls acceptable with C Line (test code = 3574) Yes POCT PREG LOT # (test code = 3575) POCT PREG TEST DATE ( test code = 3576) [facility] BETA HCG [id number] 05:36:04* Test Item Value Reference Range Interpretation Comme [facility] BETA HCG (test code = 0818132398) See_Comment [Automated [employer] ge] The system which generated this result transmitted reference range: Non- female and male patients: <5 mIU/mL. The reference range was not used to interpret this result as normal/abnormal. AIME (test code = AIME) Gestational Age ?Range (mIU/mL) 1-10 ?Weeks ?[id number] Weeks ?70569-76913542-56 Weeks ?7981-36825538-89 Weeks ?4218-848812 Biotin has been reported to cause a negative bias, interpret results relative to patient's use of biotin. [facility] METABOLIC PANEL (NA, K, CL, CO2, GLUCOSE, BUN, CREATININE, CA)2021-12-11 05:19:02* Test Item Value Reference Range Interpretation Comme nts NA (test code = 5881154232) 137 mmol/L 135-145 K (test code = 4976411247) 4.1 mmol/L 3.5-5.0 CL (test code = 2671451330) 104 mmol/L 98-108 CO2 TOTAL (test code = 2687172298) 25 mmol/L 23-31 AGAP (test code = 6727927301) 2-16 BUN (test code = 5772159055) 12 mg/dL 7-23 GLUCOSE (test code = 4686492678) 95 mg/dL 70-110 CREATININE (test code = 4283689402) 0.61 mg/dL 0.50-1.04 CALCIUM (test code = 7132853818) 8.6 mg/dL 8.6-10.6 eGFR (test code = 9084549801) mL/min/1.73m2 AIME (test code = AIME) Association of [...] or urine or abnormalities in imaging tests). [facility] WITH [id number] 05:07:59* Test Item Value Reference Range Interpretation Comme nts WBC (test code = 6690-2) See_Comment H [Automated [employer]] The system which generated this result transmitted reference range: 4.30 - 11.10 10*3/?L. The reference range was not used to interpret this result as normal/abnormal. RBC (test code = 789-8) See_Comment [Automated [employer]] The system which generated this result transmitted reference range: 3.93 - 5.25 10*6/?L. The reference range was not used to interpret this result as normal/abnormal. HGB (test code = 718-7) 11.7 g/dL 11.6-15.0 HCT (test code = 4544-3) 37.9 % 35.7-45.2 MCV (test code = 787-2) 77.2 fL 80.6-95.5 L MCH (test code = 785-6) 23.8 pg 25.9-32.8 L MCHC (test code = 786-4) 30.9 g/dL 31.6-35.1 L RDW-SD (test code = 06734-8) 52.3 fL 39.0-49.9 H RDW-CV (test code = 788-0) 18.8 % 12.0-15.5 H PLT (test code = 777-3) See_Comment H [Automated [employer]] The system which generated this result transmitted reference range: 166 - 358 10*3/?L. The reference range was not used to interpret this result as normal/abnormal. MPV (test code = 93026-5) 10.0 fL 9.5-12.9 NRBC/100 WBC (test code = 9174043381) See_Comment [Automated me ssage] The system which generated this result transmitted reference range: 0.0 - 10.0 /100 WBCs. The reference range was not used to interpret this result as normal/abnormal. NRBC x10^3 (test code = 1915414629) <0.01 See_Comment [Automated messa ge] The system which generated this result transmitted reference range: 10*3/?L. The reference range was not used to interpret this result as normal/abnormal. GRAN MAT (NEUT) % (test code = 770-8) 69.9 % IMM GRAN % (test code = 8439037590) 0.50 % LYMPH % (test code = 736-9) 20.4 % MONO % (test code = 5905-5) 6.3 % EOS % (test code = 713-8) 2.6 % BASO % (test code = 706-2) 0.3 % GRAN MAT x10^3(ANC) (test code = 7003348069) 8.48 10*3/uL 1.88-7.09 H IMM GRAN x10^3 (test code = 2520584594) 0.06 10*3/uL 0.00-0.06 LYMPH x10^3 (test code = 731-0) 2.48 10*3/uL 1.32-3.29 MONO x10^3 (test code = 742-7) 0.76 10*3/uL 0.33-0.92 EOS x10^3 (test code = 711-2) 0.32 10*3/uL 0.03-0.39 BASO x10^3 (test code = 704-7) 0.04 10*3/uL 0.01-0.07 Lab Interpretation (test code = 43851-3) Abnormal [id number] 04:52:00* Test Item Value Reference Range Interpretation Comme nts POCT PREG (test code = 1605) Negative On board controls acceptable with C Line (test code = 3574) positive POCT PREG LOT # (test code = 3575) [id number] POCT PREG TEST DATE ( test code = 3576) 06/10/2023 Lab Interpretation (test cod e = 98862-2) Normal [facility]"
[2023-12-16] MEDS ORDERED: IBUPROFEN 200 MG TAB PO ONE (19:56)
--- NOTE | 2023-12-16 19:59 | RAD REPORT ---
EXAM DESCRIPTION: RAD - Hand Left 3 View - 12/16/2023 7:48 pm CLINICAL HISTORY: PAIN COMPARISON: No comparisons FINDINGS/IMPRESSION: No acute fracture. No malalignment. No significant focal degenerative changes.
--- NOTE | 2023-12-16 20:11 | EDPHYS ---
Physician Documentation [facility] Name: Linda Castillo Age: 23 yrs Sex: Female : 2000 Arrival Date: 12/16/2023 Time: 19:27 Bed 5 Private MD: ED Physician Kelvin Ryan HPI: 12/15 20:41 This 23 yrs old Female presents to ER via Ambulatory with complaints of Hand rt Injury. 20:46 Patient presents to the ED with an injury to the left hand. Patient states that on rt , it was crushed between 2 pieces of metal shelving. Reports pain, swelling of the hand, no other symptoms. Symptoms are mild in severity, no other aggravating or elevating factors.. 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 - Infectious Disease History:: Denies. - Social history:: Smoking status: Patient reports the use of cigarette tobacco products, denies chronic smoking, but will smoke occasionally, Reported history of juuling and/or vaping. Patient uses alcohol, occasionally. Patient/guardian denies using street drugs. - Family history:: not pertinent. ROS: 20:46 Constitutional: Negative for fever, chills, and weight loss, Cardiovascular: Negative rt for chest pain, palpitations, and edema, Respiratory: Negative for shortness of breath, cough, wheezing, and pleuritic chest pain, Skin: Negative for injury, rash, and discoloration, Neuro: Negative for headache, weakness, numbness, tingling, and seizure, 20:46 MS/extremity: Positive for contusion, pain, Exam: 20:46 Constitutional: This is a well developed, well nourished patient who is awake, alert, rt and in no acute distress. Head/Face: Normocephalic, atraumatic. Chest/axilla: Normal chest wall appearance and motion. Nontender with no deformity. No lesions are appreciated. Cardiovascular: Regular rate and rhythm with a normal S1 and S2. No gallops, murmurs, or rubs. Normal PMI, no JVD. No pulse deficits. Respiratory: Lungs have equal breath sounds bilaterally, clear to auscultation and percussion. No rales, rhonchi or wheezes noted. No increased work of breathing, no retractions or nasal flaring. Skin: Warm, dry with normal turgor. Normal color with no rashes, no lesions, and no evidence of cellulitis. Neuro: Awake and alert, GCS 15, oriented to person, place, time, and situation. Cranial nerves II-XII grossly intact. Motor strength 5/5 in all extremities. Sensory grossly intact. Cerebellar exam normal. Normal gait. 20:46 Musculoskeletal/extremity: Tenderness to the mid hand, mild bruising noted, pulses, motor, sensation are intact. Vital Signs: 19:44 BP 118 / 85; Pulse 65; Resp 16; Temp 98.6(TE); Pulse Ox 98% on R/A; Weight 87.09 kg km8 (R); Height 5 ft. 3 in. (R); Pain 4/10; 19:44 Body Mass Index 34.01 (87.09 kg, 160.02 cm) km 19:44 Pain Scale: Adult km8 MDM: 19:39 Patient medically screened. rt 20:46 Differential diagnosis: Contusion, fracture. Data reviewed: vital signs, nurses notes, rt radiologic studies. I considered the following discharge prescriptions or medication management in the emergency department Medications were administered in the Emergency Department. See MAR. Independent interpretation of the following test(s) in the Emergency Department X-Ray: My interpretation is No fracture seen on interpretation of x-ray images. Counseling: I had a detailed discussion with the patient and/or guardian regarding the historical points, exam findings, and any diagnostic results supporting the discharge/admit diagnosis, radiology results, the need for outpatient follow up. 12/15 19:41 Order name: Hand Left 3 View XRAY; Complete Time: 20:02 rt Administered Medications: 20:03 Drug: Ibuprofen PO 600 mg PO once Route: PO; jb4 Disposition Summary: 12/16/23 20:10 Discharge Ordered Notes: Location: Home rt Problem: new rt Symptoms: are unchanged rt Condition: Stable rt Diagnosis - Contusion of left hand rt Followup: rt - With: Private Physician - When: 2 - 3 days - Reason: Discharge Instructions: - Discharge Summary Sheet rt - Hand Contusion rt Forms: - Work release form rt - Medication Reconciliation Form rt - Thank You Letter rt - Antibiotic Education rt - Prescription Opioid Use rt - Patient Portal Instructions rt - Leadership Thank You Letter rt Signatures: Dispatcher [employer] Ashwin Camacho RN RN [id number] Kelvin Ryan MD MD rt Anabelle Guillory RN RN [id number]
--- NOTE | 2023-12-16 20:11 | ER ---
Nurse's Notes [facility] Name: Linda Castillo Age: 23 yrs Sex: Female : 2000 Arrival Date: 12/16/2023 Time: 19:27 Bed 5 Private MD: Diagnosis: Contusion of left hand Presentation: 12/15 19:44 Chief complaint: Patient states: while at work on her left hand got smashed km8 between 2 metal shelves; pt reports pain and swelling to left hand. Coronavirus screen: Client denies travel out of the [place] in the last 14 days. Ebola Screen: No symptoms or risks identified at this time. Initial Sepsis Screen: Does the patient meet any 2 criteria? No. Patient's initial sepsis screen is negative. Does the patient have a suspected source of infection? No. Patient's initial sepsis screen is negative. Risk Assessment: Do you want to hurt yourself or someone else? Patient reports no desire to harm self or others. Onset of symptoms was December 14, 2023. 19:44 Method Of Arrival: Ambulatory km8 19:44 Acuity: IMANI 4 km8 Triage Assessment: 19:46 General: Appears in no apparent distress. Behavior is calm, cooperative, appropriate km8 for age. Pain: Complains of pain in left hand Pain currently is 4 out of 10 on a pain scale. EENT: No signs and/or symptoms were reported regarding the EENT system. Neuro: Level of Consciousness is awake, alert, obeys commands, Oriented to person, place, time, situation. Cardiovascular: Denies chest pain, shortness of breath, Patient's skin is warm and dry. Respiratory: Airway is patent Respiratory effort is even, unlabored, Respiratory pattern is regular, symmetrical. GI: No signs and/or symptoms were reported involving the gastrointestinal system. : No signs and/or symptoms were reported regarding the genitourinary system. Derm: No signs and/or symptoms reported regarding the dermatologic system. Skin is intact, is healthy with good turgor, Skin is dry, Skin is normal, Skin temperature is warm. Musculoskeletal: Circulation, motion, and sensation intact. Swelling present in left hand Reports pain in left hand Pain is 4 out of 10 on a pain scale. Injury Description: Crush injury sustained to left hand was sustained 2 days ago. 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 - Infectious Disease History:: Denies. - Social history:: Smoking status: Patient reports the use of cigarette tobacco products, denies chronic smoking, but will smoke occasionally, Reported history of juuling and/or vaping. Patient uses alcohol, occasionally. Patient/guardian denies using street drugs. - Family history:: not pertinent. Screenin:22 [facility] ED Fall Risk Assessment (Adult) History of falling in the last 3 months, jb4 including since admission No falls in past 3 months (0 pts) Confusion or Disorientation No (0 pts) Intoxicated or Sedated No (0 pts) Impaired Gait No (0 pts) Mobility Assist Device Used No (0 pt) Altered Elimination No (0 pt) Score/Fall Risk Level 0 - 2 = Low Risk Oriented to surroundings, Maintained a safe environment. Abuse screen: Denies threats or abuse. Nutritional screening: No deficits noted. Tuberculosis screening: No symptoms or risk factors identified. Assessment: 20:22 General: Appears in no apparent distress. comfortable, Behavior is calm, cooperative, jb4 appropriate for age. Pain: Complains of pain in left hand Pain does not radiate. Pain currently is 4 out of 10 on a pain scale. Neuro: Level of Consciousness is awake, alert, obeys commands, Oriented to person, place, time, situation. Cardiovascular: Patient's skin is warm and dry. Respiratory: Airway is patent Respiratory effort is even, unlabored, Respiratory pattern is regular, symmetrical. GI: No signs and/or symptoms were reported involving the gastrointestinal system. : No signs and/or symptoms were reported regarding the genitourinary system. EENT: No signs and/or symptoms were reported regarding the EENT system. Derm: Skin is intact, Skin is pink, warm \T\ dry. Musculoskeletal: Circulation, motion, and sensation intact. Range of motion: intact in all extremities. Vital Signs: 19:44 BP 118 / 85; Pulse 65; Resp 16; Temp 98.6(TE); Pulse Ox 98% on R/A; Weight 87.09 kg km8 (R); Height 5 ft. 3 in. (R); Pain 4/10; 19:44 Body Mass Index 34.01 (87.09 kg, 160.02 cm) km8 19:44 Pain Scale: Adult [facility] ED Course: 19:32 Patient arrived in ED. gm2 19:33 Kelvin Ryan MD is Attending Physician. rt 19:45 Triage completed. km8 19:46 Arm band placed on right wrist. km8 19:50 Hand Left 3 View XRAY In Process Unspecified. EDMS 20:22 Patient has correct armband on for positive identification. Bed in low position. Call jb4 light in reach. Side rails up X 1. Provided Education on: discharge instructions.. 20:22 No provider procedures requiring assistance completed. Patient did not have IV access jb4 during this emergency room visit. Administered Medications: 20:03 Drug: Ibuprofen PO 600 mg PO once Route: PO; jb4 Medication: 20:22 VIS not applicable for this client. jb4 Outcome: 20:10 Discharge ordered by . rt 20:22 Discharged to home ambulatory, jb4 20:22 Condition: stable 20:22 Discharge instructions given to patient, Instructed on discharge instructions, follow up and referral plans. Demonstrated understanding of instructions, follow-up care, 20:24 Patient left the ED. jb4 Signatures: Dispatcher [employer] Ashwin Camacho RN RN jb4 Kelvin Ryan MD MD rt Swathi Lantigua 2 Anabelle Guillory RN RN km8
[2023-12-17 04:19] VITALS: BP 118/85; TEMP 98.6; O2SAT 98
== END 2023-12-16 20:24 | disposition home or self-care (01) ==
LOC: ER 19:27
DX: S60.222A Contusion of left hand, initial encounter (principal)
CPT/HCPCS: 99283

== ENCOUNTER 2023-12-21 09:34 | Emergency (ER) | payer SELFPAY ==
--- OUTSIDE RECORDS SUMMARY | 2023-12-21 09:37 | XMS REPORT | Continuity of Care Document ---
Author Name Unknown Address [address] [facility] [address] [place] [address] [facility] thconnect Address [address] [facility] [place] [address] Care Team Providers Care Histology Teacher Name Role Phone Pcp, Patient Does Not Have A Primary Care Physic sandra HOSEA CID Attending Clinician Unavailable Karin Dennis CNM Attending Clinician [phone] KARIN DENNIS Attending Clinician Unavaila Bridgette Tompkins Attending Clinician + NIC WRIGHT Attending Clinician Unavailable Nic Hoyos S Attending Clinician [phone] BRIDGETTE KIM Attending Clinician Unavail able PERRY QUIÑONEZ Attending Clinician Unavailab JAMISON Mccracken Attending Clinician Unavailable Jamison Berkowitz Attending Clinician [phone] Doctor Unassigned, [facility] Attending Clinician U Perry Boateng Attending Clinician + [phone] OPAL CEE Attending Clinician UnavailOpal Ag Attending Clinician [phone] SHANE MAGUIRE Attending Clinician Unavailable Abbey Gould Attending Clinician [phone] Shane Maguire MD Attending Clinician Trimester, [facility]st Attending Clinician Unavailable Hosea Cid MD Attending Clinician [phone] Doug Blanchard MD Attending Clinician + [phone] DOUG BLANCHARD Attending Clinician Unavailable Lab, [facility] Attending Clinician Unavailable KOVACEV_T Attending Clinician Unavailable ALMA WHITMAN Attending Clinician Unavailable Alma Whitman MD Attending Clinician [phone] Felice Herbert MD Attending Clinician + [phone] Marvin Bradford MD Attending Clinician [phone] Dale Sherman Attending Clinician [phone] Alejandro Amos DO Attending Clinician [phone] Nash Jaimes Attending Clinician [phone] Visit, [facility] Nurse Attending Clinician Unava Alton Garcia Attending Clinician +[phone] HOSEA CID Admitting Clinician Unavailable SHANE MAGUIRE Admitting Clinician Unavailable Shane Maguire MD Admitting Clinician [phone] JAMISON LARA Admitting Clinician Unavailable ANNIE_T Admitting Clinician Unavailable Marvin Bradford MD Admitting Clinician [phone] Payers Payer Name Policy Type Policy Number Effective Date Expirati on Date Source [place] [id number] 2021 00:00:00 [facility] [id number] 2021 00:00:00 MEDICAID-ID - WOMEN'S HEALTH PROGRAM (MEDICAID) [id number] Problems Condition Name Condition Details Condition Category Status Onset Date Resolution Date Last Treatment Date Treating Clinician Comments Source Anxiety and depression Anxiety and depression Disease Active 03-03 00:00: 00 [facility] Supervisio n of high-risk Supervisio n of high-risk Disease Active 12-09 00:00: 00 [facility] History of miscarriag e History of miscarriag e Disease Active 2022-0 3-31 00:00: 00 [facility] Obesity in Obesity in Disease Active 3-31 00:00: 00 [facility] Ovarian torsion Ovarian torsion Disease Active 12-09 00:00: 00 Overview: Formattin g of this note might be different from the original. Reports hist lolly in 2019 [facility] Elevated blood pressure reading without diagnosis of hypertensi on Elevated blood pressure reading without diagnosis of hypertensi on Disease Active 331 00:00: 00 [facility] Depression during Depression during Disease Active 3-14 00:00: 00 [facility] Vaginal bleeding affecting early Vaginal bleeding affecting early Disease Active 2020-09 0- 00:00: 00 [facility] Obesity (BMI 30-39.9) Obesity (BMI 30-39.9) Disease Active 6-22 00:00: 00 [facility] Pain pelvic Pain pelvic Disease Active 1-30 00:00: 00 [facility] Allergies, Adverse Reactions, Alerts Allergy Name Allergy Type Status Severity Reaction(s) Onset Date Inactive Date Treating Clinician Comments Source NO KNOWN ALLERGIE S Drug Class Active [facility] Social History Social Habit Start Date Stop Date Quantity Comments Source ASSERTION 2021-11-18 00:00:00 [facility] Gender identity [facility] Sexual orientation U [facility] History SDOH Alcohol Frequency [facility] History SDOH Alcohol Std Drinks [facility] History SDOH Alcohol Binge [facility] History of Social function 2023-02-28 00:00:00 2023-02-28 00:00:00 [facility] Exposure to SARS-CoV-2 (event) 2023-02-17 00:00:00 2023-02-27 19:51:00 Not sure [facility] Alcohol Comment 2021-06-18 00:00:00 2021-06-18 00:00:00 stopped 06/11/2021 [facility] Alcohol intake 2020-09-22 00:00:00 2020-09-22 00:00:00 Ex-drinker (finding) [facility] Tobacco use and exposure 2020-07-21 00:00:00 2020-07-21 00:00:00 Smokeless tobacco non-user [facility] Cigarettes smoked current (pack per day) - Reported 2020-07-21 00:00:00 2020-07-21 00:00:00 [facility] Cigarette pack-years 2020-07-21 00:00:00 2020-07-21 00:00:00 [facility] History of tobacco use 2018-02-16 00:00:00 2020-02-17 00:00:00 Cigarette Smoker [facility] Sex Assigned At 2000 00:00:00 2000 00:00:00 [facility] Smoking Status Start Date Stop Date Source Light Tobacco Smoker [facility] Ex-smoker 2020-07-21 00:00:00 2020-07-21 00:00[facility]ations Ordered Medication Name Filled Medication Name Start Date Stop Date Current Medication? Ordering Clinician Indication Dosage Frequency Signature (SIG) Comments Components Source metroNIDAZO LE 500 mg tablet 03-23 00:00: 00 Yes [id number] 500mg Take 1 tablet by mouth in the morning and 1 tablet in the evening. [facility] metroNIDAZO LE 500 mg tablet 03-02 00:00: 00 03-10 04:59 :00 No [id number] 500mg Take 1 tablet by mouth in the morning and 1 tablet in the evening. Do all this for 7 days. [facility] ondansetron 4 mg disintegrat ing tablet 02-14 00:00: 00 02-28 00:00 :00 No [id number] 4mg Take 1 tablet by mouth every 8 (eight) hours as needed for Nausea and Vomiting (N/V). [facility] valACYclovi r 1 gram tablet 02-14 00:00: 00 02-22 04:59 :00 No [id number] 1g Take 1 tablet by mouth 3 (three) times daily for 7 days. [facility] multivitami n ( VITAMIN) tablet 3-31 00:00: 00 02-28 00:00 :00 No [id number] 1{tbl} Take 1 tablet by mouth daily. [facility] multivitami n ( VITAMIN) tablet 12-09 00:00: 00 02-28 00:00 :00 No [id number] 1{tbl} Take 1 tablet by mouth daily. [facility] sucralfate 1 gram tablet 09-22 00:00: 00 03-03 00:00 :00 No [id number] 1g Take 1 tablet by mouth before meals and at bedtime. [facility] ondansetron ondansetron No on dansetro n [facility] sucralfate sucralfate No sucralfate [facility] Tylenol w Codeine 300-60 mg tablet Take 1 tablet every 6 hours by oral route. Tylenol w Codeine 300-60 mg tablet Take 1 tablet every 6 hours by oral route. No 1 Q6H Tylenol w Codeine 300-60 mg tablet Take 1 tablet every 6 hours by oral route. [facility] ondansetron ondansetron No on dansetro n [facility] sucralfate sucralfate No sucralfate [facility] Tylenol w Codeine 300-60 mg tablet Take 1 tablet every 6 hours by oral route. Tylenol w Codeine 300-60 mg tablet Take 1 tablet every 6 hours by oral route. No 1 Q6H Tylenol w Codeine 300-60 mg tablet Take 1 tablet every 6 hours by oral route. [facility] Immunizations Ordered Immunization Name Filled Immunization Name Date Status Comments Source HPV9 2023-02-28 00:00:00 Completed [facility] HPV9 2023-02-28 00:00:00 Completed [facility] HPV9 2023-02-28 00:00:00 Completed [facility] HPV9 2023-02-28 00:00:00 Completed [facility] Influenza Virus Vaccine Quad IM, Preserv and ABX Free 6 MO-64 YRS 2021-12-09 00:00:00 Completed [facility] Influenza Virus Vaccine Quad IM, Preserv and ABX Free 6 MO-64 YRS 2021-12-09 00:00:00 Completed [facility] Influenza Virus Vaccine Quad IM, Preserv and ABX Free 6 MO-64 YRS 2021-12-09 00:00:00 Completed [facility] Influenza Virus Vaccine Quad IM, Preserv and ABX Free 6 MO-64 YRS 2021-12-09 00:00:00 Completed [facility] Influenza Virus Vaccine Quad IM, Preserv and ABX Free 6 MO-64 YRS 2021-12-09 00:00:00 Completed [facility] Influenza Virus Vaccine Quad IM, Preserv and ABX Free 6 MO-64 YRS 2021-12-09 00:00:00 Completed [facility] Influenza Virus Vaccine Quad IM, Preserv and ABX Free 6 MO-64 YRS 2021-12-09 00:00:00 Completed [facility] Influenza Virus Vaccine Quad IM, Preserv and ABX Free 6 MO-64 YRS 2021-12-09 00:00:00 Completed [facility] Influenza Virus Vaccine Quad IM, Preserv and ABX Free 6 MO-64 YRS 2021-12-09 00:00:00 Completed [facility] Influenza Virus Vaccine Quad IM, Preserv and ABX Free 6 MO-64 YRS 2021-06-18 00:00:00 Completed [facility] Influenza Virus Vaccine Quad IM, Preserv and ABX Free 6 MO-64 YRS 2021-06-18 00:00:00 Completed [facility] Influenza Virus Vaccine Quad IM, Preserv and ABX Free 6 MO-64 YRS 2021-06-18 00:00:00 Completed [facility] Influenza Virus Vaccine Quad IM, Preserv and ABX Free 6 MO-64 YRS 2021-06-18 00:00:00 Completed [facility] Influenza Virus Vaccine Quad IM, Preserv and ABX Free 6 MO-64 YRS 2021-06-18 00:00:00 Completed [facility] Influenza Virus Vaccine Quad IM, Preserv and ABX Free 6 MO-64 YRS 2021-06-18 00:00:00 Completed [facility] Influenza Virus Vaccine Quad IM, Preserv and ABX Free 6 MO-64 YRS 2021-06-18 00:00:00 Completed [facility] Influenza Virus Vaccine Quad IM, Preserv and ABX Free 6 MO-64 YRS 2021-06-18 00:00:00 Completed [facility] Influenza Virus Vaccine Quad IM, Preserv and ABX Free 6 MO-64 YRS 2021-06-18 00:00:00 Completed [facility] Influenza Virus Vaccine Quad .5 mL IM 6+ MO 2020-07-21 00:00:00 Completed [facility] Influenza Virus Vaccine Quad .5 mL IM 6+ MO 2020-07-21 00:00:00 Completed [facility] Influenza Virus Vaccine Quad .5 mL IM 6+ MO 2020-07-21 00:00:00 Completed [facility] Influenza Virus Vaccine Quad .5 mL IM 6+ MO 2020-07-21 00:00:00 Completed [facility] Influenza Virus Vaccine Quad .5 mL IM 6+ MO 2020-07-21 00:00:00 Completed [facility] Influenza Virus Vaccine Quad .5 mL IM 6+ MO 2020-07-21 00:00:00 Completed [facility] Influenza Virus Vaccine Quad .5 mL IM 6+ MO 2020-07-21 00:00:00 Completed [facility] Influenza Virus Vaccine Quad .5 mL IM 6+ MO 2020-07-21 00:00:00 Completed [facility] Influenza Virus Vaccine Quad .5 mL IM 6+ MO 2020-07-21 00:00:00 Completed [facility] HPV 2011-06-27 00:00:00 Completed [facility] Influenza Virus Vaccine - Whole 2011-06-27 00:00:00 Completed [facility] HPV 2011-06-27 00:00:00 Completed [facility] Influenza Virus Vaccine - Whole 2011-06-27 00:00:00 Completed [facility] HPV 2011-06-27 00:00:00 Completed [facility] Influenza Virus Vaccine - Whole 2011-06-27 00:00:00 Completed [facility] HPV 2011-06-27 00:00:00 Completed [facility] Influenza Virus Vaccine - Whole 2011-06-27 00:00:00 Completed [facility] Influenza Virus Vaccine Quad .5 mL IM 6+ MO (FLUZONE/FLULAVAL/F LUARIX) Unknown Completed [facility] Influenza Virus Vaccine Quad IM, Preserv and ABX Free 6 MO-64 YRS (FLUCELVAX) Unknown Completed [facility] Influenza Virus Vaccine Quad IM, Preserv and ABX Free 6 MO-64 YRS (FLUCELVAX) Unknown Completed [facility] HPV9 Unknown Completed [facility] Influenza Virus Vaccine Quad .5 mL IM 6+ MO (FLUZONE/FLULAVAL/F LUARIX) Unknown Completed [facility] Influenza Virus Vaccine Quad IM, Preserv and ABX Free 6 MO-64 YRS (FLUCELVAX) Unknown Completed [facility] Influenza Virus Vaccine Quad IM, Preserv and ABX Free 6 MO-64 YRS (FLUCELVAX) Unknown Completed [facility] Influenza Virus Vaccine Quad .5 mL IM 6+ MO (FLUZONE/FLULAVAL/F LUARIX) Unknown Completed [facility] Influenza Virus Vaccine Quad IM, Preserv and ABX Free 6 MO-64 YRS (FLUCELVAX) Unknown Completed [facility] Influenza Virus Vaccine Quad IM, Preserv and ABX Free 6 MO-64 YRS (FLUCELVAX) Unknown Completed [facility] Influenza Virus Vaccine Quad .5 mL IM 6+ MO (FLUZONE/FLULAVAL/F LUARIX) Unknown Completed [facility] Influenza Virus Vaccine Quad IM, Preserv and ABX Free 6 MO-64 YRS (FLUCELVAX) Unknown Completed [facility] Influenza Virus Vaccine Quad .5 mL IM 6+ MO (FLUZONE/FLULAVAL/F LUARIX) Unknown Completed [facility] Influenza Virus Vaccine Quad .5 mL IM 6+ MO (FLUZONE/FLULAVAL/F LUARIX) Unknown Completed [facility] Vital Signs Vital Name Observation Time Observation Value Comments S ource Systolic blood pressure 2023-02-28 20:19:00 126 mm[Hg] [facility] Diastolic blood pressure 2023-02-28 20:19:00 80 mm[Hg] [facility] Heart rate 2023-02-28 20:19:00 72 /min [facility] Body temperature 2023-02-28 20:19:00 36.28 Susan [facility] Respiratory rate 2023-02-28 20:19:00 18 /min [facility] Body height 2023-02-28 20:19:00 160 cm [facility] Body weight 2023-02-28 20:19:00 89.982 kg [facility] BMI 2023-02-28 20:19:00 35.14 kg/m2 [facility] Systolic blood pressure 2022-02-14 14:15:00 127 mm[Hg] [facility] Diastolic blood pressure 2022-02-14 14:15:00 76 mm[Hg] [facility] Heart rate 2022-02-14 14:15:00 83 /min [facility] Body temperature 2022-02-14 14:15:00 37.17 Susan [facility] Respiratory rate 2022-02-14 14:15:00 14 /min [facility] Body height 2022-02-14 14:15:00 160 cm [facility] Body weight 2022-02-14 14:15:00 96.163 kg [facility] BMI 2022-02-14 14:15:00 37.55 kg/m2 [facility] Oxygen saturation in Arterial blood by Pulse oximetry 2022-02-14 14:15:00 99 /min [facility] Systolic blood pressure 2021-12-11 04:28:00 130 mm[Hg] [facility] Diastolic blood pressure 2021-12-11 04:28:00 80 mm[Hg] [facility] Heart rate 2021-12-11 04:28:00 84 /min [facility] Body temperature 2021-12-11 04:28:00 37.11 Susan [facility] Respiratory rate 2021-12-11 04:28:00 18 /min [facility] Body height 2021-12-11 04:28:00 160 cm [facility] Body weight 2021-12-11 04:28:00 93.895 kg [facility] BMI 2021-12-11 04:28:00 36.67 kg/m2 [facility] Oxygen saturation in Arterial blood by Pulse oximetry 2021-12-11 04:28:00 100 /min [facility] BP Diastolic 2021-01-21 00:00:00 65 mm[Hg] [facility] Height 2021-01-21 00:00:00 63 [in_i] [facility] BMI (Body Mass Index) 2021-01-21 00:00:00 39.7 kg/m2 [facility] BP Systolic 2021-01-21 00:00:00 129 mm[Hg] [facility] Body Weight 2021-01-21 00:00:00 3584 [oz_av] [facility] BP Diastolic 2020-11-24 00:00:00 70 mm[Hg] [facility] Height 2020-11-24 00:00:00 63 [in_i] [facility] BMI (Body Mass Index) 2020-11-24 00:00:00 37.4 kg/m2 [facility] BP Systolic 2020-11-24 00:00:00 112 mm[Hg] [facility] Body Weight 2020-11-24 00:00:00 3376 [oz_av] [facility] Procedures Procedure Date / Time Performed Performing Clinician Source GC & CHLAMYDIA AMPLIFIED ASSAY 2023-02-28 21:23:00 Karin Dennis [facility] POCT TEST 2023-02-28 21:23:00 Renea Dennis [facility] GALV ONLY - VAGINAL PATHOGENS BY NUCLEIC ACID TESTING 2023-02-28 21:23:00 Karin Dennis [facility] GARDASIL 9 (HPV 9V) VACCINE 2023-02-28 20:59:58 Karin Dennis [facility] CONSENT/REFUSAL FOR DIAGNOSIS AND TREATMENT 2022-02-14 14:09:51 Doctor Unassigned, [facility] POCT TEST 2021-12-11 04:52:00 Korina Lara [facility] BASIC METABOLIC PANEL (NA, K, CL, CO2, GLUCOSE, BUN, CREATININE, CA) 2021-12-11 04:49:00 Jamison Lara [facility] TOTAL BETA HCG ASSAY 2021-12-11 04:49:00 Toro Lara [facility] CBC WITH DIFF 2021-12-11 04:49:00 Jamison Lara [facility] URINALYSIS 2021-12-11 04:49:00 Jamison Lara [facility] NM, hepatobiliary scan, w/ CCK 2020-11-24 00:00:00 [facility] Encounters Start Date/Time End Date/Time Encounter Type Admission Type Attending Clinicians Care Facility Care Department Encounter ID Source 2021-07-13 09:37:08 Emergency [facility] [id number] [facility] 2021-07-12 02:48:05 Emergency [facility] [id number] [facility] 2021-07-10 16:43:23 Emergency [facility] [id number] [facility] 2021-07-08 12:13:41 Outpatient HOSEA MCLAUGHLIN [facility] 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 [id number] 350.1.13.10 4.2.7.2.686 [id number] [facility] 2023-03-23 00:00:00 2023-03-23 00:00:00 Patient Secure Msg Karin Dennis [facility] [id number] 350.1.13.10 4.2.7.2.686 [id number] [facility] 2023-03-20 00:00:00 2023-03-20 00:00:00 Outpatient R KARIN DENNIS [facility] [id number] [facility] 2023-03-02 08:00:00 2023-03-02 08:00:00 Outpatient R KARIN DENNIS [facility] [id number] [facility] 2023-03-02 00:00:00 2023-03-02 00:00:00 Telephone Karin Dennis [facility] [place] [facility] 1..840.114 350.1.13.10 4.2.7.2.686 [id number] [facility] 2023-02-28 15:15:00 2023-02-28 16:27:01 Outpatient R KARIN DENNIS [facility] [id number] [facility] 2023-02-28 15:15:00 2023-02-28 16:27:01 Office Visit Karin Dennis [facility] [place] [facility] 1..840.114 350.1.13.10 4.2.7.2.686 [id number] [facility] 2023-02-16 00:00:00 2023-02-16 00:00:00 Telephone Bridgette Kim [facility] [place] [facility] 1..840.114 350.1.13.10 4.2.7.2.686 [id number] [facility] 2022-02-14 09:18:00 2022-02-14 10:32:00 Emergency X NIC WRIGHT [facility] ERT [id number] [facility] 2022-02-14 09:18:00 2022-02-14 10:32:00 Emergency Nic Wright [facility] 1..840.114 350.1.13.10 4.2.7.2.686 [id number] [facility] 2022-01-17 00:00:00 2022-01-17 00:00:00 Telephone Bridgette Kim [facility] [place] [facility] [id number] 350.1.13.10 4.2.7.2.686 [id number] [facility] 2021-12-23 08:00:00 2021-12-23 08:00:00 Outpatient R BRIDGETTE KIM [facility] [id number] [facility] 2021-12-23 08:00:00 2021-12-23 08:00:00 Outpatient R BRIDGETTE KIM [facility] [id number] [facility] 2021-12-13 13:15:00 2021-12-13 13:15:00 Outpatient R PERRY QUIÑONEZ [facility] [id number] [facility] 2021-12-13 10:30:00 2021-12-13 10:30:00 Outpatient R BRIDGETTE KIM [facility] [id number] [facility] 2021-12-10 23:34:00 2021-12-11 01:12:00 Emergency X JAMISON LARA [facility] ERT [id number] [facility] 2021-12-10 23:34:00 2021-12-11 01:12:00 Emergency Jamison Lara [facility] 1.840.114 350.1.13.10 4.2.7.2.686 [id number] [facility] 2021-12-10 00:00:00 2021-12-10 00:00:00 Telephone Bridgette Kim [facility] [place] [facility] 1.2840.114 350.1.13.10 4.2.7.2.686 [id number] [facility] 2021-12-10 00:00:00 2021-12-10 00:00:00 Patient Secure Msg Bridgette Kim [facility] [place] [facility] 1.2.840.114 350.1.13.10 4.2.7.2.686 [id number] [facility] 2021-12-10 00:00:00 2021-12-10 00:00:00 Patient Secure Msg KimBridgette [facility] [place] [facility] 1.2.840.114 350.1.13.10 4.2.7.2.686 [id number] [facility] 2021-12-09 14:15:00 2021-12-09 14:58:41 Initial Visit Rudyrenee Bridgette Roberto [facility] [place] [facility] 1.2.840.114 350.1.13.10 4.2.7.2.686 [id number] [facility] 2021-12-09 14:15:00 2021-12-09 14:58:41 Outpatient BRIDGETTE RAMIREZ [facility] [id number] [facility] 2021-12-09 00:00:00 2021-12-09 00:00:00 Orders Only Doctor Unassigned[facility] 1.2.840.114 350.1.13.10 4.2.7.2.686 [id number] [facility] 2021-11-22 15:00:00 2021-11-22 16:04:57 Office Visit Perry Quiñonez [facility] [place] [facility] 1.2.840.114 350.1.13.10 4.2.7.2.686 [id number] [facility] 2021-11-22 15:00:00 2021-11-22 16:04:57 Outpatient PERRY OVIEDO [facility] [id number] [facility] 2021-11-22 15:00:00 2021-11-22 15:00:00 Outpatient PERRY OVIEDO [facility] [id number] [facility] 2021-08-18 00:00:00 2021-08-18 00:00:00 Orders Only Doctor Unassigned, [facility] 1.2.840.114 350.1.13.10 4.2.7.2.686 [id number] [facility] 2021-07-27 09:45:00 2021-07-27 09:45:00 Outpatient R [facility] [id number] [facility] 2021-07-26 10:30:00 2021-07-26 10:30:00 Outpatient P [facility] [id number] [facility] 2021-07-16 10:45:00 2021-07-16 10:45:00 Outpatient R OPAL CEE [facility] [id number] [facility] 2021-07-16 00:00:00 2021-07-16 00:00:00 Orders Only Doctor Unassigned, [facility] 1..840.114 350.1.13.10 4.2.7.2.686 [id number] [facility] 2021-07-15 15:00:00 2021-07-15 15:00:00 Outpatient [facility] CLE[facility] [facility] [id number] [facility] 2021-07-13 10:30:00 2021-07-13 10:30:00 Outpatient OPAL CLEMENTS [facility] [id number] [facility] 2021-07-12 00:00:00 2021-07-12 00:00:00 Patient Secure Msg Opal Cee [facility] [place] [facility] MAT[facility]NAL & [facility] 1..840.114 350.1.13.10 4.2.7.2.686 [id number] [facility] 2021-07-09 23:34:00 2021-07-10 08:10:00 Outpatient X SHANE MAGUIRE [facility] [id number] [facility] 2021-07-09 23:34:00 2021-07-10 08:10:00 Outpatient X SHANE MAGUIRE [facility] [id number] [facility] 2021-07-09 23:34:00 2021-07-10 08:10:00 Emergency CacAbbey hawley Megan [facility] 1..840.114 350.1.13.10 4.2.7.2.686 [id number] [facility] 2021-07-09 00:00:00 2021-07-09 00:00:00 Orders Only Doctor Unassigned, [facility] 1.2.840.114 350.1.13.10 4.2.7.2.686 [id number] [facility] 2021-07-08 10:02:09 2021-07-08 11:41:10 Routine Visit Trimester, [facility] Res-1st Hosea Cid [facility] 1.840.114 350.1.13.10 4.2.7.2.686 [id number] [facility] 2021-07-08 10:00:00 2021-07-08 11:41:10 Outpatient R HOSEA CID [facility] [id number] [facility] 2021-07-08 10:00:00 2021-07-08 11:41:10 Outpatient R HOSEA CID [facility] [id number] [facility] 2021-07-08 10:00:00 2021-07-08 11:41:10 Outpatient R HOSEA CID [facility] [id number] [facility] 2021-07-08 10:00:00 2021-07-08 10:00:00 Outpatient R [facility] [id number] [facility] 2021-07-05 23:45:00 2021-07-06 03:07:00 Emergency Lara, [facility] 1.2840.114 350.1.13.10 4.2.7.2.686 [id number] [facility] 2021-07-05 23:45:00 2021-07-06 03:07:00 Emergency X [facility] ERT [id number] [facility] 2021-07-06 00:00:00 2021-07-06 00:00:00 Telephone Opal Cee [facility] [place] [facility] MATERNAL & CHILD [facility] 1.2.840.114 350.1.13.10 4.2.7.2.686 [id number] [facility] 2021-07-05 00:00:00 2021-07-05 00:00:00 Patient Secure Msg Opal Cee [facility] [place] [facility]TAIN [facility] & CHILD [facility] 1.2840.114 350.1.13.10 4.2.7.2.686 [id number] [facility] 2021-07-05 00:00:00 2021-07-05 00:00:00 Orders Only Doctor Unassigned, [facility] 1.2.840.114 350.1.13.10 4.2.7.2.686 [id number] [facility] 2021-06-24 10:32:34 2021-06-24 11:49:51 Routine Visit Trimester, [facility] Res-1st Doug Blanchard [facility] 1.0.114 350.1.13.10 4.2.7.2.686 [id number] [facility] 2021-06-24 10:15:00 2021-06-24 11:49:51 Outpatient R DOUG BLANCHARD [facility] [id number] [facility] 2021-06-22 00:00:00 2021-06-22 00:00:00 Telephone Opal Cee [facility] [place] [facility]NAL & CHILD [facility] 1.2.840.114 350.1.13.10 4.2.7.2.686 [id number] [facility] 2021-06-21 13:15:00 2021-06-21 09:57:19 Outpatient R OPAL CEE [facility] [id number] [facility] 2021-06-21 09:37:01 2021-06-21 09:57:19 Major Assembly Inspector Visit Lab, [facility] Opal Cee [facility] [place] CAPTAIN [facility] & CHILD [facility] 1.2.840.114 350.1.13.10 4.2.7.2.686 [id number] [facility] 2021-06-21 00:00:00 2021-06-21 00:00:00 Telephone Opal Cee Arcadio [facility] [place] [facility] & CHILD [facility] 1.2.840.114 350.1.13.10 4.2.7.2.686 [id number] [facility] 2021-06-18 08:53:58 2021-06-18 09:54:55 Initial Visit Opal Cee [facility] [place] [facility] & CHILD [facility] 1.2.840.114 350.1.13.10 4.2.7.2.686 [id number] [facility] 2021-06-18 08:53:58 2021-06-18 09:54:55 Initial Visit Opal Cee [facility] [place] [facility] & CHILD [facility] 1.2.840.114 350.1.13.10 4.2.7.2.686 [id number] [facility] 2021-06-18 08:30:00 2021-06-18 08:30:00 Outpatient R [facility] [id number] [facility] 2021-06-18 04:25:00 2021-06-18 04:25:00 Outpatient [facility]ACEV_T [facility] 1008 [facility] [facility] 2021-06-18 00:00:00 2021-06-18 00:00:00 Orders Only Doctor Unassigned, [facility] 1.20.114 350.1.13.10 4.2.7.2.686 [id number] [facility] 2021-04-08 08:30:00 2021-04-08 08:30:00 Outpatient R ALMA WHITMAN [facility] [id number] [facility] 2021-03-11 14:28:29 2021-03-11 14:58:53 [facility] 1.84.114 350.1.13.10 4.2.7.2.686 [id number] [facility] 2021-03-11 14:30:00 2021-03-11 14:30:00 Outpatient R ALMA WHITMAN [facility] [id number] [facility] 2021-03-11 14:30:00 2021-03-11 14:30:00 Outpatient R ALMA WHITMAN [facility] [id number] [facility] 2021-03-08 00:00:00 2021-03-08 00:00:00 Patient Secure Msg Doctor Unassigned, [facility] 1..114 350.1.13.10 4.2.7.2.686 [id number] [facility] 2021-03-02 08:44:00 2021-03-06 16:01:00 Emergency Felice Herbert [facility] 1.84.114 350.1.13.10 4.2.7.2.686 [id number] [facility] 2021-03-05 12:30:00 2021-03-05 15:40:00 Surgery Alma Whitman [facility] [place] 1.2.840.114 350.1.13.10 4.2.7.2.686 [id number] [facility] 2021-03-03 12:00:00 2021-03-03 12:39:00 Surgery Alma Whitman [facility] 1.2.840.114 350.1.13.10 4.2.7.2.686 [id number] [facility] 2021-02-27 03:20:00 2021-02-27 03:20:00 Outpatient [facility] [id number] [facility] 2021-01-28 06:24:00 2021-01-28 06:24:00 Outpatient [facility] [id number] [facility] 2021-01-24 01:05:00 2021-01-24 01:05:00 Outpatient [facility] [id number] [facility] 2021-01-21 10:23:00 2021-01-21 10:23:00 Outpatient [facility] [id number] [facility] 2021-01-21 00:00:00 2021-01-21 00:00:00 Outpatient Dale Sherman [facility] [id number] 2021-01-21 00:00:00 2021-01-21 00:00:00 Dale Sherman MD: [place] [address] , Ph. [facility] [id number] [facility] 2020-12-20 01:03:00 2020-12-20 01:03:00 Outpatient [facility] [id number] [facility] 2020-12-07 05:24:00 2020-12-07 05:24:00 Outpatient [facility] [id number] [facility] 2020-12-07 05:21:00 2020-12-07 05:21:00 Outpatient [facility] [id number] [facility] 2020-12-04 04:34:00 2020-12-04 04:34:00 Outpatient [facility] [id number] [facility] 2020-12-01 00:00:00 2020-12-01 00:00:00 Dale Sherman MD: [place] [address] , Ph. [facility] SURGERY [id number] [facility] 2020-12-01 00:00:00 2020-12-01 00:00:00 Patient Outreach Alejandro Amos [facility] 1.2.840.114 350.1.13.10 4.2.7.2.686 [id number] [facility] 2020-12-01 00:00:00 2020-12-01 00:00:00 Outpatient Dale Sherman [facility] [id number] 2020-11-24 10:25:00 2020-11-24 10:25:00 Outpatient [facility] [id number] [facility] 2020-11-24 09:46:00 2020-11-24 09:46:00 Outpatient [facility] [id number] [facility] 2020-11-24 00:00:00 2020-11-24 00:00:00 Outpatient Dale Sherman [facility] [id number] 2020-11-24 00:00:00 2020-11-24 00:00:00 Dale Sherman MD: Jaylen Moncada , [place] [address] , Ph. [facility] [id number] [facility] 2020-11-19 05:44:00 2020-11-19 05:44:00 Outpatient [facility] 1 [facility] 2020-11-12 09:36:00 2020-11-12 09:36:00 Outpatient [facility] [id number] [facility] 2020-10-28 10:30:00 2020-10-28 10:30:00 Outpatient R [facility] [id number] [facility] 2020-10-26 08:15:00 2020-10-26 08:15:00 Outpatient R BRIDGETTE KIM [facility] [id number] [facility] 2020-10-19 00:00:00 2020-10-19 00:00:00 Patient Secure Msg Doctor Unassigned, [facility] [place] [facility] MATERNAL & CHILD HEALTH [facility] .840.114 350.1.13.10 4.2.7.2.686 [id number] [facility] 2020-09-22 10:18:00 2020-09-22 12:17:00 Emergency Nash [facility] .840.114 350.1.13.10 4.2.7.2.686 [id number] [facility] 2020-09-22 00:00:00 2020-09-22 00:00:00 Orders Only Doctor Unassigned, [facility] 1.2.840.114 350.1.13.10 4.2.7.2.686 [id number] [facility] 2020-07-28 08:00:31 2020-07-28 08:24:28 Nurse Visit Visit, [facility] Nurse Perry Quiñonez [facility] [place] [facility] & CHILD [facility] 1.284.114 350.1.13.10 4.2.7.2.686 [id number] [facility] 2020-07-28 08:00:00 2020-07-28 08:00:00 Outpatient R PERRY QUIÑONEZ [facility] [id number] [facility] 2020-07-24 00:00:00 2020-07-24 00:00:00 Telephone Perry Quiñonez [facility] [place] [facility] & CHILD [facility] 1.284.114 350.1.13.10 4.2.7.2.686 [id number] [facility] 2020-07-23 00:00:00 2020-07-23 00:00:00 Telephone Perry Quiñonez [facility] [place] [facility] CHILD [facility] 1.284.114 350.1.13.10 4.2.7.2.686 [id number] [facility] 2020-07-21 14:10:34 2020-07-21 15:39:48 Office Visit Perry Quiñonez [facility] [place] [facility] & CHILD [facility] 1.2.840.114 350.1.13.10 4.2.7.2.686 [id number] [facility] 2020-07-21 14:30:00 2020-07-21 14:30:00 Outpatient PERRY OVIEDO [facility] [id number] [facility] 2020-07-21 00:00:00 2020-07-21 00:00:00 Orders Only Doctor Unassigned, [facility] 1.2.840.114 350.1.13.10 4.2.7.2.686 [id number] [facility] 2019-05-04 16:52:41 2019-05-04 19:20:00 Emergency Calvin Alton [facility] 1.2.840.114 350.1.13.10 4.2.7.2.686 [id number] [facility] 2019-05-04 00:00:00 2019-05-04 00:00:00 Orders Only Doctor Unassigned, [facility] 1.2.840.114 350.1.13.10 4.2.7.2.686 [id number] [facility] Results Test Description Test Time Test Comments Results Result Co mments [id number] 21:23:00* Test Item Value Reference Range Interpretation Comme nts POCT PREG (test code = 1605) Negative On board controls acceptable with C Line (test code = 3574) Yes POCT PREG LOT # (test code = 3575) POCT PREG TEST DATE ( test code = 3576) [facility] [id number] 05:36:04* Test Item Value Reference Range Interpretation Comme [facility] BETA HCG (test code = 2175566750) See_Comment [Automated [employer] ge] The system which generated this result transmitted reference range: Non- female and male patients: <5 mIU/mL. The reference range was not used to interpret this result as normal/abnormal. AIME (test code = AIME) Gestational Age ?Range (mIU/mL) 1-10 ?Weeks ?[id number] Weeks ?32221-25821385-92 Weeks ?7499-53146500-04 Weeks ?5009-769284 Biotin has been reported to cause a negative bias, interpret results relative to patient's use of biotin. [facility] METABOLIC PANEL (NA, K, CL, CO2, GLUCOSE, BUN, CREATININE, CA)2021-12-11 05:19:02* Test Item Value Reference Range Interpretation Comme nts NA (test code = 6967785865) 137 mmol/L 135-145 K (test code = 2444835541) 4.1 mmol/L 3.5-5.0 CL (test code = 1689878415) 104 mmol/L 98-108 CO2 TOTAL (test code = 4488982931) 25 mmol/L 23-31 AGAP (test code = 1019604287) 2-16 BUN (test code = 9914774042) 12 mg/dL 7-23 GLUCOSE (test code = 2444847225) 95 mg/dL 70-110 CREATININE (test code = 2104957753) 0.61 mg/dL 0.50-1.04 CALCIUM (test code = 8773591520) 8.6 mg/dL 8.6-10.6 eGFR (test code = 6331698711) mL/min/1.73m2 AIME (test code = AIME) Association [...] or urine or abnormalities in imaging tests). [facility] WITH [id number] 05:07:59* Test Item Value Reference Range Interpretation Comme nts WBC (test code = 6690-2) See_Comment H [Automated [employer]] The system which generated this result transmitted reference range: 4.30 - 11.10 10*3/?L. The reference range was not used to interpret this result as normal/abnormal. RBC (test code = 789-8) See_Comment [Automated [employer]] The system which generated this result transmitted [...] g/dL 31.6-35.1 L RDW-SD (test code = 18251-3) 52.3 fL 39.0-49.9 H RDW-CV (test code = 788-0) 18.8 % 12.0-15.5 H PLT (test code = 777-3) See_Comment H [Automated [employer]] The system which generated this result transmitted reference range: 166 - 358 10*3/?L. The reference range was not used to interpret this result as normal/abnormal. MPV (test code = 15659-4) 10.0 fL 9.5-12.9 NRBC/100 WBC (test code = 7555108911) See_Comment [Automated me ssage] The system which generated this result transmitted reference range: 0.0 - 10.0 /100 WBCs. The reference range was not used to interpret this result as normal/abnormal. NRBC x10^3 (test code = 2091341555) <0.01 See_Comment [Automated messa ge] The system which generated this result transmitted reference range: 10*3/?L. The reference range was not used to interpret this result as normal/abnormal. GRAN MAT (NEUT) % (test code = 770-8) 69.9 % IMM GRAN % (test code = 0172440169) 0.50 % LYMPH % (test code = 736-9) 20.4 % MONO % (test code = 5905-5) 6.3 % EOS % (test code = 713-8) 2.6 % BASO % (test code = 706-2) 0.3 % GRAN MAT x10^3(ANC) (test code = 2355336773) 8.48 10*3/uL 1.88-7.09 H IMM GRAN x10^3 (test code = 8220458474) 0.06 10*3/uL 0.00-0.06 LYMPH x10^3 (test code = 731-0) 2.48 10*3/uL 1.32-3.29 MONO x10^3 (test code = 742-7) 0.76 10*3/uL 0.33-0.92 EOS x10^3 (test code = 711-2) 0.32 10*3/uL 0.03-0.39 BASO x10^3 (test code = 704-7) 0.04 10*3/uL 0.01-0.07 Lab Interpretation (test code = 64501-6) [facility]normal [id number] 04:52:00* Test Item Value Reference Range Interpretation Comme nts POCT PREG (test code = 1605) Negative On board controls acceptable with C Line (test code = 3574) positive POCT PREG LOT # (test code = 3575) [id number] POCT PREG TEST DATE ( test code = 3576) 06/10/2023 Lab Interpretation (test cod e = 69318-6) Normal [facility]"
[2023-12-21 10:22] LABS: Specific Gravity 1.023 (1.005-1.030)
--- NOTE | 2023-12-21 10:24 | RAD REPORT ---
EXAM DESCRIPTION: RAD - Chest Pa And Lat (2 Views) - 12/21/2023 10:19 am CLINICAL HISTORY: CHEST PAIN COMPARISON: Chest Pa And Lat (2 Views) dated 11/07/2022 FINDINGS: Lines: None. Lungs: No evidence of edema or pneumonia. Pleural: No significant pleural effusions or pneumothorax. Cardiac: The heart size is within normal limits. Mediastinum: Within normal limits. Bones: No acute fractures. Other: None IMPRESSION: No acute cardiopulmonary disease.
--- NOTE | 2023-12-21 10:50 | ER ---
Nurse's Notes [facility] Name: Linda Castillo Age: 23 yrs Sex: Female : 2000 Arrival Date: 12/21/2023 Time: 09:34 Bed DX4 Private MD: Diagnosis: Chest pain, unspecified Presentation: 12/20 10:00 Chief complaint: Patient states: L CP and SOB since Monday. Hurts more with laughing ll1 and yelling. No fever or cough. Coronavirus screen: Client denies travel out of the [place] in the last 14 days. At this time, the client does not indicate any symptoms associated with coronavirus-19. Ebola Screen: Patient denies travel to an Ebola-affected area in the 21 days before illness onset. Initial Sepsis Screen: Does the patient meet any 2 criteria? No. Patient's initial sepsis screen is negative. Does the patient have a suspected source of infection? No. Patient's initial sepsis screen is negative. Risk Assessment: Do you want to hurt yourself or someone else? Patient reports no desire to harm self or others. Onset of symptoms was December 19, 2023. 10:00 Method Of Arrival: Ambulatory ll1 10:00 Acuity: IMANI 3 ll1 Triage Assessment: 10:01 General: Appears uncomfortable, Behavior is calm, cooperative, appropriate for age. ll1 Pain: Complains of pain in L chest Quality of pain is described as aching. Cardiovascular: Reports chest pain, shortness of breath. Historical: - Allergies: 09:56 No Known Allergies; ll1 - PSHx: 09:56 Cholecystectomy; Ovarian cyst removal (ys); Ovarian torsion (ys); ll1 - Immunization history:: Adult Immunizations up to date. - Infectious Disease History:: Denies. - Social history:: Smoking status: Patient reports the use of cigarette tobacco products, denies chronic smoking, but will smoke occasionally, Reported history of juuling and/or vaping. - Family history:: not pertinent. - Hospitalizations: : No recent hospitalization is reported. Screenin:09 [facility] ED Fall Risk Assessment (Adult) Score/Fall Risk Level 0 - 2 = Low Risk. Abuse iw screen: Denies threats or abuse. Denies injuries from another. Nutritional screening: No deficits noted. Tuberculosis screening: No symptoms or risk factors identified. Assessment: 11:00 General: Appears in no apparent distress. Behavior is calm, cooperative. Pain: iw Complains of pain in left lateral anterior chest and anterior aspect of left upper chest Pain began. Neuro: Level of Consciousness is awake, alert, obeys commands, Oriented to person, place, time, situation, Moves all extremities. Full function. Cardiovascular: Reports chest pain, Patient's skin is warm and dry. Respiratory: Respiratory effort is even, unlabored, Respiratory pattern is regular, symmetrical. Derm: Skin is intact, is healthy with good turgor. Musculoskeletal: Range of motion: intact in all extremities. Vital Signs: 10:00 BP 126 / 76; Pulse 65; Resp 17; Temp 97.6; Pulse Ox 99% ; Weight 90.72 kg; Height 5 ft. ll1 3 in. ; Pain 7/10; 10:00 Body Mass Index 35.43 (90.72 kg, 160.02 cm) ll1 10:00 Pain Scale: Adult ll1 ED Course: 09:35 Patient arrived in ED. rg4 09:44 Rubens Davies MD is Attending Physician. rn 09:56 Arm band placed on. ll1 10:01 Triage completed. ll1 10:15 Urine collected: clean catch specimen, clear, Amount Voided: 200mL. ll1 10:20 XRAY Chest Pa And Lat (2 Views) In Process Unspecified. EDMS 10:22 Test, Urine Sent. ll1 10:35 EKG done, by ED staff, reviewed by Rubens Davies MD. bc6 11:04 Natacha Garcia, RN is Primary Nurse. iw 11:09 No provider procedures requiring assistance completed. Patient did not have IV access iw during this emergency room visit. Administered Medications: 11:04 Drug: Ketorolac IM 15 mg IM once Route: IM; Site: left deltoid; iw 11:25 Follow up: Response: No adverse reaction iw Medication: 11:00 VIS not applicable for this client. iw Outcome: 10:49 Discharge ordered by . rn 11:09 Discharged to home ambulatory, iw 11:09 Condition: good 11:09 Discharge instructions given to patient, Instructed on discharge instructions, follow up and referral plans. medication usage, Demonstrated understanding of instructions, follow-up care, 11:10 Patient left the ED. iw Signatures: Dispatcher [employer] EDMS Natacha Garcia, RN RN iw Rubens Davies MD MD rn Garcia, Rubi rg4 Mikel Saldana RN RN ll1 Colleen Catalan 6 Corrections: (The following items were deleted from the chart) 10:01 10:00 Chief complaint: Patient states: L CP since Monday. Hurts more with laughing and ll1 yelling. No fever or cough. ll1 19:48 11:09 Discharge instructions given to patient, Instructed on discharge instructions, iw follow up and referral plans. medication usage, Demonstrated understanding of instructions, follow-up care, medications, Prescriptions given X 1, iw
--- NOTE | 2023-12-21 10:50 | EDPHYS ---
Physician Documentation [facility] Name: Linda Castillo Age: 23 yrs Sex: Female : 2000 Arrival Date: 12/21/2023 Time: 09:34 Bed DX4 Private MD: ED Physician Rubens Davies HPI: 12/20 10:26 This 23 yrs old Female presents to ER via Ambulatory with complaints of Chest rn Pain. 10:26 The patient or guardian reports chest pain that is located primarily in the anterior rn aspect of left upper chest and left lateral anterior chest. The pain radiates to the left shoulder. Associated signs and symptoms: Pertinent positives: cough, Pertinent negatives: abdominal pain, syncope. The chest pain is described as sharp, stabbing. Duration: The patient or guardian reports multiple episodes, that are intermittent. Modifying factors: The symptoms are alleviated by nothing. the symptoms are aggravated by cough, deep breath, movement, palpation of area. Severity of pain: At its worst the pain was mild in the emergency department the pain is unchanged. The patient has not experienced similar symptoms in the past. Patient reports left-sided chest pain, sometimes radiates to the left shoulder. Began a few days ago. Patient active vaper and smoker. Denies fever. Reports pain with movement and palpation along with deep inspiration. No history of DVT or PE. No family history of early cardiac disease. No trauma. Does not feel ill.. Historical: - Allergies: 09:56 No Known Allergies; ll1 - PSHx: 09:56 Cholecystectomy; Ovarian cyst removal (ys); Ovarian torsion (ys); ll1 - Immunization history:: Adult Immunizations up to date. - Infectious Disease History:: Denies. - Social history:: Smoking status: Patient reports the use of cigarette tobacco products, denies chronic smoking, but will smoke occasionally, Reported history of juuling and/or vaping. - Family history:: not pertinent. - Hospitalizations: : No recent hospitalization is reported. ROS: 10:26 Constitutional: Negative for fever, chills, and weight loss, Cardiovascular: Positive rn for left-sided chest pain Respiratory: Positive for subjective shortness of breath along with cough and left-sided pleuritic chest pain Abdomen/GI: Negative for abdominal pain, nausea, vomiting, diarrhea, and constipation, Exam: 10:26 Constitutional: This is a well developed, well nourished patient who is awake, alert, rn and in no acute distress. Cardiovascular: Regular rate and rhythm. No pulse deficits. Respiratory: Speaking full sentences, unlabored. No retractions Abdomen/GI: Soft, nontender 10:34 ECG was reviewed by the Attending Physician. rn Vital Signs: 10:00 BP 126 / 76; Pulse 65; Resp 17; Temp 97.6; Pulse Ox 99% ; Weight 90.72 kg; Height 5 ft. ll1 3 in. ; Pain 7/10; 10:00 Body Mass Index 35.43 (90.72 kg, 160.02 cm) ll1 10:00 Pain Scale: Adult ll1 MDM: 09:44 Patient medically screened. rn 10:48 Differential diagnosis: acute pericarditis, anxiety, chest wall pain, costochondritis, rn esophagitis, gastritis, gastroesophageal reflux disease (GERD), pleurisy, pneumonia, pneumothorax. HEART Score: History: Slightly Suspicious (0), ECG: Normal (0), Age: < or = 45 years (0), Risk Factors: No Risk Factors Known (0), Troponin: < or = 1 x Normal Limit (0), Total Score = 0. Data reviewed: vital signs, nurses notes, lab test result(s), EKG, radiologic studies, plain films. Counseling: I had a detailed discussion with the patient and/or guardian regarding the historical points, exam findings, and any diagnostic results supporting the discharge/admit diagnosis, lab results, radiology results, the need for outpatient follow up, to return to the emergency department if symptoms worsen or persist or if there are any questions or concerns that arise at home, smoking cessation. Special discussion: I discussed with the patient/guardian in detail that at this point there is no indication for admission to the hospital. It is understood, however, that if the symptoms persist or worsen the patient needs to return immediately for re-evaluation. 12/20 10:04 Order name: Test, Urine; Complete Time: 10:48 rn 12/20 09:59 Order name: XRAY Chest Pa And Lat (2 Views); Complete Time: 10:48 rn 12/20 09:59 Order name: EKG; Complete Time: 09:59 rn 12/20 09:59 Order name: EKG - Nurse/Tech; Complete Time: 10:35 rn EC:34 Rate is 65 beats/min. Rhythm is regular. IL interval is normal. QRS interval is normal. rn QT interval is normal. No Q waves. T waves are Normal. No ST changes noted. Clinical impression: NSR w/ Non-specific ST/T Changes. Interpreted by me. Reviewed by me. Administered Medications: 11:04 Drug: Ketorolac IM 15 mg IM once Route: IM; Site: left deltoid; iw 11:25 Follow up: Response: No adverse reaction iw Disposition Summary: 12/21/23 10:49 Discharge Ordered Notes: Location: Home rn Problem: new rn Symptoms: have improved rn Condition: Stable rn Diagnosis - Chest pain, unspecified rn Followup: rn - With: Private Physician - When: As needed - Reason: Recheck today's complaints, Re-evaluation by your physician Discharge Instructions: - Discharge Summary Sheet rn - Nonspecific Chest Pain, Adult rn - Steps to Quit Smoking rn Forms: - Medication Reconciliation Form rn - Thank You Letter rn - Antibiotic oxyacetylene burner - Prescription Opioid Use rn - Patient Portal Instructions rn - Leadership Thank You Letter rn Signatures: Dispatcher [employer] Natacha Olson, RN RN Rubens Davies MD MD rn Lewis, Lynsay, RN RN ll1
[2023-12-21] MEDS ORDERED: KETOROLAC 30 MG/ML INJ ONE (11:00)
[2023-12-21 11:25] VITALS: BP 126/76; TEMP 97.6; O2SAT 99
--- NOTE | 2023-12-22 13:40 | EKG ---
Test Date: 2023-12-21 Test Time: 10:31:53 Carrier Operator: PRABHJOT MEASUREMENT RESULTS: Intervals: Rate: 65 OH: 146 QRSD: 88 QT: 378 QTc: 393 [place]: P: 31 OH: 146 QRS: 93 T: 46 INTERPRETIVE STATEMENTS: Normal sinus rhythm with sinus arrhythmia Rightward axis Borderline ECG No previous ECG available for comparison Electronically Signed On 12-22-23 13:37:55 CDT by Galen Cooper
== END 2023-12-21 11:10 | disposition home or self-care (01) ==
LOC: ER 09:34
DX: R07.89 Other chest pain (principal); F17.210 Nicotine dependence, cigarettes, uncomplicated
CPT/HCPCS: 71046; 81025; 93005; 96372; 99284

== ENCOUNTER 2025-01-25 19:30 | Emergency (ER) | payer SELFPAY ==
[2025-01-25] MEDS ORDERED: ONDANSETRON 4 MG/2 ML VIAL ONE (20:42)
[2025-01-25] MEDS ORDERED: MORPHINE 4 MG/ML SYR ONE (20:43)
[2025-01-25] MEDS ORDERED: NA CHLORIDE 0.9% 1,000 ML ONE (20:43)
[2025-01-25 20:49] LABS: Specific Gravity 1.037 (1.005-1.030)
[2025-01-25 20:52] LABS: Specific Gravity > 1.030 (1.005-1.030); Sqamous Epithelial 20-50 /HPF (None Seen); Urine Bacteria None Seen /HPF (<20); Urine Bilirubin NEGATIVE (Negative); Urine Blood Negative (Negative); Urine Clarity Extremely Turbid (Clear); Urine Color Yellow (Yellow); Urine Culture Reflex Order NOT NEEDED; Urine Glucose NEGATIVE (Negative); Urine Ketones 1+ (Negative); Urine Microscopic Reflex YN ORDER UMIC; Urine Mucus 4+ /HPF (None Seen); Urine Nitrite NEGATIVE (Negative); Urine Protein 1+ (Negative); Urine RBC <5 /HPF (None Seen); Urine Urobilinogen 1+ (Normal); Urine WBC <5 /HPF (<5)
[2025-01-25 20:54] LABS: Absolute Basophils 0.1 K/uL (0-0.5); Absolute Eosinophils 0.1 K/uL (0-0.5); Absolute Monocytes 0.5 K/uL (0.1-1.3); Basophils % 0.7 % (0-1.3); Eosinophils % 1.3 % (0-4.4); Hematocrit 39.3 % (36.0-45.0); Hemoglobin 13.3 g/dL (12.0-15.0); Lymphocytes % 18.3 % (15.3-44.8); MCH 28.2 pg (27.0-35.0); MCHC 33.7 g/dL (32.0-36.0); MCV 83.5 fL (80-100); MPV 8.4 fL (7.6-11.3); Monocytes % 4.8 % (3.3-12.3); Neutrophils % 74.9 % (41.7-73.7); Platelets 329 thou/uL (152-406); Red Cell Distribution Width 14.7 % (12.1-15.2)
[2025-01-25 21:12] LABS: Albumin 3.6 g/dL (3.4-5.0); Albumin/Globulin Ratio 0.8 (1.1-1.8); Anion Gap 8.6 mEq/L (5.0-15.0); Bilirubin Total 0.8 mg/dL (0.2-1.0); Globulin 4.5 g/dL (2.3-3.5); Potassium 3.6 mEq/L (3.5-5.1); Protein, Total 8.1 g/dL (6.4-8.2)
--- NOTE | 2025-01-25 21:24 | RAD REPORT ---
Transvaginal Study Probe CLINICAL INDICATION: Female 24 years old rlq pain, history of torsion TECHNIQUE: Real-time ultrasonography of the pelvis was performed transvaginally and transabdominally. Color and spectral Doppler evaluation of the ovaries was performed. [id number]. COMPARISON: No prior exam. FINDINGS: UTERUS AND CERVIX: The uterus measures 7.5 x 3.8 x 4.3 cm (cervix to fundus x AP x transverse). The u terus is normal. No masses seen . The endometrium is normal,11 mm thickness. RIGHT OVARY: Normal The right ovary measures 4.3 x 1.9 x 2.4 cm with volume of 10.4 mL. Normal color and spectral Doppler evaluation of the right ovary.. LEFT OVARY: Normal The left ovary measures 2.7 x 1.5 x 1.7 cm with volume of 3.7 mL. Normal Color a nd spectral Doppler evaluation of the left ovary.. FREE FLUID: No free fluid. IMPRESSION: 1. No acute findings identified. 2. Bilateral ovarian blood flow.
--- NOTE | 2025-01-25 21:24 | RAD REPORT ---
Pelvis Complete CLINICAL INDICATION: Female 24 years old rlq pain, history of torsion TECHNIQUE: Real-time ultrasonography of the pelvis was performed transvaginally and transabdominally. Color and spectral Doppler evaluation of the ovaries was performed. [id number]. COMPARISON: No prior exam. FINDINGS: UTERUS AND CERVIX: The uterus measures 7.5 x 3.8 x 4.3 cm (cervix to fundus x AP x transverse). The u terus is normal. No masses seen . The endometrium is normal,11 mm thickness. RIGHT OVARY: Normal The right ovary measures 4.3 x 1.9 x 2.4 cm with volume of 10.4 mL. Normal color and spectral Doppler evaluation of the right ovary.. LEFT OVARY: Normal The left ovary measures 2.7 x 1.5 x 1.7 cm with volume of 3.7 mL. Normal Color a nd spectral Doppler evaluation of the left ovary.. FREE FLUID: No free fluid. IMPRESSION: 1. No acute findings identified. 2. Bilateral ovarian blood flow.
--- NOTE | 2025-01-25 22:31 | RAD REPORT ---
EXAMINATION: Abdomen Pelvis W Contrast CLINICAL INDICATION: Female, 24 years old.rlq TECHNIQUE: CT abdomen and pelvis was performed, after the administration of IV contrast, as per [facility] protocol. Axial, sagittal and coronal reconstructions were obtained. One or more of the following dose reduction techniques were used: Automated exposure control, adjustment of the mA and/o r kV according to patient size, and/or iterative reconstruction. Unless otherwise specified, incidental findings do not require dedicated imaging follow-up. [id number]. COMPARISON: No prior exam. FINDINGS: LOWER CHEST: No acute process identified.No significant pericardial effusion. Mild circumferential th ickening of the distal esophagus which could reflect esophagitis. UPPER GI: No significant abnormality. LIVER: Hepatic steatosis, but otherwise unremarkable. GALLBLADDER/BILE DUCTS: No biliary ductal dilatation.? PANCREAS: No mass, ductal dilation, or yanna-pancreatic fluid. SPLEEN: Unremarkable. ADRENALS: No adrenal masses. KIDNEYS AND URETERS: No hydronephrosis.No suspicious renal mass. ABDOMINAL AORTA AND OTHER VESSELS: Normal caliber aorta and IVC. PERITONEUM: No abnormal free fluid. No free air. LYMPH NODES: No pathologic lymphadenopathy. ABDOMINAL WALL: Unremarkable SMALL BOWEL/COLON: Small bowel has normal course and caliber. No colonic wall thickening or pericolon ic inflammatory changes.Normal appendix. URINARY BLADDER: Underdistended but grossly unremarkable. REPRODUCTIVE ORGANS: No pathologic process. MUSCULOSKELETAL: No acute or suspicious osseous abnormality. ADDITIONAL FINDINGS: None. IMPRESSION: No acute findings within the abdomen or pelvis. No appendicitis.
--- NOTE | 2025-01-25 22:47 | ER ---
Nurse's Notes [facility] Name: Linda Castillo Age: 24 yrs Sex: Female : 2000 Arrival Date: 01/25/2025 Time: 19:30 Bed 5 Private MD: Diagnosis: Abdominal pain, unspecified Presentation: 01/25 20:21 Chief complaint: Patient states: RLQ abdominal pain onset yesterday. Pt reports cm10 spotting onset yesterday as well. pt also reports passing small blood clots. PT states that her LMP was 5/ and it was "weird". Coronavirus screen: Client denies travel out of the [place] in the last 14 days. Ebola Screen: Patient denies travel to an Ebola-affected area in the 21 days before illness onset. Initial Sepsis Screen: Does the patient meet any 2 criteria? No. Patient's initial sepsis screen is negative. Does the patient have a suspected source of infection? No. Patient's initial sepsis screen is negative. Risk Assessment: Do you want to hurt yourself or someone else? Patient reports no desire to harm self or others. Onset of symptoms was January 25, 2025. 20:21 Method Of Arrival: Ambulatory cm10 20:21 Acuity: IMANI 3 cm10 Triage Assessment: 20:24 General: Appears in no apparent distress. uncomfortable, Behavior is calm, cooperative. cm10 Pain: Complains of pain in right lower quadrant Pain currently is 4 out of 10 on a pain scale. Quality of pain is described as stabbing. Neuro: No deficits noted. Level of Consciousness is awake, alert, obeys commands, Oriented to person, place, time, situation, Appropriate for age. Respiratory: No deficits noted. Airway is patent Respiratory effort is even, unlabored, Respiratory pattern is regular, symmetrical. 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 - Infectious Disease History:: Denies. - Social history:: Smoking status: Patient reports the use of cigarette tobacco products, denies chronic smoking, but will smoke occasionally, Reported history of juuling and/or vaping. Screenin:48 [facility] ED Fall Risk Assessment (Adult) History of falling in the last 3 months, hm5 including since admission No falls in past 3 months (0 pts) Confusion or Disorientation No (0 pts) Intoxicated or Sedated No (0 pts) Impaired Gait No (0 pts) Mobility Assist Device Used No (0 pt) Altered Elimination No (0 pt) Score/Fall Risk Level 0 - 2 = Low Risk Oriented to surroundings, Maintained a safe environment, Hourly rounding (assess needs \\T\\ fall precautionary measures) done. Abuse screen: Denies threats or abuse. Nutritional screening: No deficits noted. Tuberculosis screening: No symptoms or risk factors identified. Assessment: 20:49 General: Appears in no apparent distress. uncomfortable, well groomed, well developed, vc1 well nourished, Behavior is calm, cooperative, appropriate for age. Pain: Complains of pain in right lower quadrant Pain does not radiate. Pain currently is 6 out of 10 on a pain scale. Quality of pain is described as heavy, Noted to be grimacing. Neuro: Level of Consciousness is awake, alert, obeys commands, Oriented to person, place, time, situation, Appropriate for age. Cardiovascular: Capillary refill < 3 seconds Patient's skin is warm and dry. Respiratory: Airway is patent Respiratory effort is even, unlabored, Respiratory pattern is regular, symmetrical, Breath sounds are clear bilaterally. GI: Abdomen is round non-distended, Reports lower abdominal pain. : Reports vaginal bleeding that is with clots. : Urine is tea colored. EENT: No deficits noted. No signs and/or symptoms were reported regarding the EENT system. Derm: Skin is intact, is healthy with good turgor, Skin is dry, Skin is normal, Skin temperature is warm. Musculoskeletal: Circulation, motion, and sensation intact. Range of motion: intact in all extremities. 21:32 Reassessment: Patient appears in no apparent distress at this time. Patient and/or vc1 family updated on plan of care and expected duration. Pain level reassessed. Patient is alert, oriented x 3, equal unlabored respirations, skin warm/dry/pink. Patient states feeling better. Patient states symptoms have improved. 22:59 Reassessment: Patient appears in no apparent distress at this time. No changes from al5 previously documented assessment. Patient and/or family updated on plan of care and expected duration. Pain level reassessed. Patient is alert, oriented x 3, equal unlabored respirations, skin warm/dry/pink. Vital Signs: 20:21 BP 121 / 86; Pulse 86; Resp 16; Temp 98(O); Pulse Ox 97% on R/A; Weight 99.34 kg (R); cm10 Height 5 ft. 3 in. (R); Pain 4/10; 20:45 BP 133 / 88; Pulse 64; Resp 16; Pulse Ox 98% ; al5 21:00 BP 107 / 60; Pulse 73; Resp 17; Pulse Ox 98% ; al5 21:30 BP 124 / 83; Pulse 57; Resp 15; Pulse Ox 99% ; al5 22:00 BP 122 / 75; Pulse 61; Resp 17; Pulse Ox 98% ; al5 22:50 BP 126 / 60; Pulse 68; Resp 18; Pulse Ox 99% on R/A; hm5 22:52 Pain 2/10; hm5 20:21 Body Mass Index 38.79 (99.34 kg, 160.02 cm) cm10 20:21 Pain Scale: Adult cm10 22:52 Pain Scale: Adult hm5 ED Course: 19:32 Patient arrived in ED. mr 19:33 Kelvin Ryan MD is Attending Physician. rt 20:23 Triage completed. cm10 20:23 Arm band placed on left wrist. Patient placed in an exam room. cm10 20:29 Courtney Wong, RN is Primary Nurse. vc1 20:47 Inserted saline lock: 20 gauge in right antecubital area, using aseptic technique. 5 Blood collected. Flushed with 10 mL NS. 20:49 Patient has correct armband on for positive identification. Bed in low position. Call [facility] light in reach. Side rails up X2. Provided Education on: plan of care. 20:52 No provider procedures requiring assistance completed. hm5 21:08 Transvaginal Study Probe In Process Unspecified. EDMS 21:09 US Pelvis Complete In Process Unspecified. EDMS 22:10 CT Abd/Pelvis - IV Contrast Only In Process Unspecified. EDMS 22:56 IV discontinued, intact, bleeding controlled, No redness/swelling at site. Pressure hm5 dressing applied. Administered Medications: 20:51 Drug: NS 0.9% IV 1000 ml IV at 1 bolus Per protocol; to be given as a bolus over 60 vc1 minutes Route: IV; Rate: 1 bolus; Site: right antecubital; 22:49 Follow up: IV Status: Completed infusion; IV Intake: 1000ml hm5 20:52 Drug: Ondansetron IVP 4 mg IVP once; over 2 minutes Route: IVP; Site: right antecubital;vc1 22:59 Follow up: Response: No adverse reaction al5 20:52 Drug: morphine IVP or IV 4 mg IVP once over 4 mins Route: IVP; Infused Over: 4 mins; vc1 Site: right antecubital; 22:52 Follow up: Pain 10/21 Adult; Response: Marked relief of symptoms hm5 Medication: 20:49 VIS not applicable for this client. hm5 Intake: 22:49 IV: 1000ml; Total: 1000ml. [facility] Outcome: 22:47 Discharge ordered by MD. rt 22:55 Discharged to home ambulatory, [facility] 22:55 Condition: stable 22:55 Discharge instructions given to patient, Instructed on discharge instructions, follow up and referral plans. Demonstrated understanding of instructions, follow-up care, 22:59 Patient left the ED. [facility] Signatures: Dispatcher [employer] EDNC JinBarbara, Malik Reg mr Courtney Wong, RN RN vc1 Kelvin Ryan MD MD rt Martinez, Clarissa, RN RN cm10 Aimee Fajardo RN RN al5 Clara Caruso RN RN 5 Corrections: (The following items were deleted from the chart) 22:24 20:50 BP 133 / 88; Pulse 66bpm; Resp 16bpm; Pulse Ox 98%; vc1 al5 22:24 21:30 BP 124 / 83; Pulse 63bpm; Resp 16bpm; Pulse Ox 99%; vc1 al5
--- NOTE | 2025-01-25 22:48 | EDPHYS ---
Physician Documentation [facility] Name: Linda Castillo Age: 24 yrs Sex: Female : 2000 Arrival Date: 01/25/2025 Time: 19:30 Bed 5 Private MD: ED Physician Kelvin Ryan HPI: 01/25 21:53 This 24 yrs old Female presents to ER via Ambulatory with complaints of rt Vaginal Bleeding, LRQ pain. 21:53 Patient presents to the ED with right lower quadrant pain starting yesterday. 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 States that she has had vaginal spotting during this time. She does report a history of ovarian torsion. Denies other acute complaints at this time, symptoms are moderate in severity, aching nature, nonradiating, no other aggravating alleviating factors.. 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 - Infectious Disease History:: Denies. - Social history:: Smoking status: Patient reports the use of cigarette tobacco products, denies chronic smoking, but will smoke occasionally, Reported history of juuling and/or vaping. ROS: 21:56 Constitutional: Negative for fever, chills, and weight loss, Cardiovascular: Negative rt for chest pain, palpitations, and edema, Respiratory: Negative for shortness of breath, cough, wheezing, and pleuritic chest pain, MS/Extremity: Negative for injury and deformity, Skin: Negative for injury, rash, and discoloration, Neuro: Negative for headache, weakness, numbness, tingling, and seizure, Psych: Negative for depression, anxiety, suicide ideation, homicidal ideation, and hallucinations, 21:56 Abdomen/GI: Positive for abdominal pain, nausea and vomiting, 21:56 : Positive for vaginal bleeding, Negative for burning with urination, Exam: 21:56 Constitutional: This is a well developed, well nourished patient who is awake, alert, rt and in no acute distress. Head/Face: Normocephalic, atraumatic. Chest/axilla: Normal chest wall appearance and motion. Nontender with no deformity. No lesions are appreciated. Cardiovascular: Regular rate and rhythm with a normal S1 and S2. No gallops, murmurs, or rubs. Normal PMI, no JVD. No pulse deficits. Respiratory: Lungs have equal breath sounds bilaterally, clear to auscultation and percussion. No rales, rhonchi or wheezes noted. No increased work of breathing, no retractions or nasal flaring. Abdomen/GI: Soft, non-tender, with normal bowel sounds. No distension or tympany. No guarding or rebound. No evidence of tenderness throughout. Skin: Warm, dry with normal turgor. Normal color with no rashes, no lesions, and no evidence of cellulitis. MS/ Extremity: Pulses equal, no cyanosis. Neurovascular intact. Full, normal range of motion. 21:56 Abdomen/GI: Tenderness to the right lower quadrant without rebound, guarding, distention, Vital Signs: 20:21 BP 121 / 86; Pulse 86; Resp 16; Temp 98(O); Pulse Ox 97% on R/A; Weight 99.34 kg (R); cm10 Height 5 ft. 3 in. (R); Pain 4/10; 20:45 BP 133 / 88; Pulse 64; Resp 16; Pulse Ox 98% ; al5 21:00 BP 107 / 60; Pulse 73; Resp 17; Pulse Ox 98% ; al5 21:30 BP 124 / 83; Pulse 57; Resp 15; Pulse Ox 99% ; al5 22:00 BP 122 / 75; Pulse 61; Resp 17; Pulse Ox 98% ; al5 22:50 BP 126 / 60; Pulse 68; Resp 18; Pulse Ox 99% on R/A; hm5 22:52 Pain 2/10; hm5 20:21 Body Mass Index 38.79 (99.34 kg, 160.02 cm) cm10 20:21 Pain Scale: Adult cm10 22:52 Pain Scale: Adult hm5 MDM: 20:26 Medical Screening Exam initiated rt 22:59 Differential diagnosis: Ovarian torsion, ectopic , ovarian cyst, appendicitis, rt nonspecific abdominal pain. Data reviewed: vital signs, nurses notes, lab test result(s), radiologic studies. I considered the following discharge prescriptions or medication management in the emergency department Medications were administered in the Emergency Department. See MAR. Independent interpretation of the following test(s) in the Emergency Department CT Scan: My interpretation is No bowel obstruction syndrome interpretation of CT scan images. Counseling: I had a detailed discussion with the patient and/or guardian regarding the historical points, exam findings, and any diagnostic results supporting the discharge/admit diagnosis, lab results, radiology results, the need for outpatient follow up, to return to the emergency department if symptoms worsen or persist or if there are any questions or concerns that arise at home. Response to treatment: the patient's symptoms have markedly improved after treatment. 01/25 20:27 Order name: UA Rfx Phi Cult if indicated; Complete Time: 21:25 rt 01/25 20:27 Order name: Test, Urine; Complete Time: 21:25 rt 01/25 20:37 Order name: CBC with Diff; Complete Time: 21:25 rt 01/25 20:37 Order name: CMP; Complete Time: 21:25 rt 01/25 20:37 Order name: Lipase; Complete Time: 21:25 rt 01/25 20:52 Order name: Test, Serum; Complete Time: 21:51 vc1 01/25 20:37 Order name: CT Abd/Pelvis - IV Contrast Only; Complete Time: 22:32 rt 01/25 20:37 Order name: US Pelvis Complete; Complete Time: 21:25 rt 01/25 21:08 Order name: Transvaginal Study Probe; Complete Time: 21:25 EDMS 01/25 20:37 Order name: IV Saline Lock; Complete Time: 20:51 rt 01/25 20:37 Order name: Labs collected and sent; Complete Time: 20:51 rt Administered Medications: 20:51 Drug: NS 0.9% IV 1000 ml IV at 1 bolus Per protocol; to be given as a bolus over 60 vc1 minutes Route: IV; Rate: 1 bolus; Site: right antecubital; 22:49 Follow up: IV Status: Completed infusion; IV Intake: 1000ml hm5 20:52 Drug: Ondansetron IVP 4 mg IVP once; over 2 minutes Route: IVP; Site: right antecubital;vc1 22:59 Follow up: Response: No adverse reaction al5 20:52 Drug: morphine IVP or IV 4 mg IVP once over 4 mins Route: IVP; Infused Over: 4 mins; vc1 Site: right antecubital; 22:52 Follow up: Pain 2/10 Adult; Response: Marked relief of symptoms hm5 Disposition Summary: 01/25/25 22:47 Discharge Ordered Notes: Location: Home rt Problem: new rt Symptoms: have improved rt Condition: Stable rt Diagnosis - Abdominal pain, unspecified rt Followup: rt - With: Private Physician - When: 2 - 3 days - Reason: Discharge Instructions: - Discharge Summary Sheet rt - Abdominal Pain, Adult rt Forms: - Medication Reconciliation Form rt - Antibiotic Education rt - Prescription Opioid Use rt - Patient Portal Instructions rt - Leadership Thank You Letter rt Signatures: Dispatcher [employer] EDMS Courtney Wong RN RN vc1 Kelvin Ryan MD MD rt Maria Luisa Foreman RN RN cm10 Aimee Fajardo RN al5 Clara Caruso RN hm5 Corrections: (The following items were deleted from the chart) 20:28 20:28 UA Rfx Phi Cult if indicated+U.LAB.BRZ ordered. EDMS EDMS 20:28 20:28 Test, Urine+UC.LAB.BRZ ordered. EDMS EDMS 20:38 20:38 CBC+H.LAB.BRZ ordered. EDMS EDMS 20:38 20:38 COMPREHENSIVE METABOLIC PANEL+C.LAB.BRZ ordered. EDMS EDMS 20:38 20:38 LIPASE+C.LAB.BRZ ordered. EDMS EDMS 20:38 20:38 Abdomen Pelvis W Con+CT.RAD.BRZ ordered. EDMS EDMS 20:38 20:38 Pelvis Complete+US.RAD.BRZ ordered. EDMS EDMS
[2025-01-25 23:08] VITALS: TEMP 98
[2025-01-25 23:15] VITALS: BP 126/60; O2SAT 99
== END 2025-01-25 22:59 | disposition home or self-care (01) ==
LOC: ER 19:30
DX: R10.31 Right lower quadrant pain (principal); R11.2 Nausea with vomiting, unspecified
CPT/HCPCS: 36415; 74177; 76830; 76856; 80053; 81001; 81025; 83690; 84703; 85025; 96361; 96374; 96375; 99284; J2405; J7030; Q9967